=== PATIENT | female | born 1975 | race Caucasian/White ===

== ENCOUNTER 2020-08-08 08:33 | Outpatient (REF) | payer OTHER, SELFPAY | END 2020-08-08 08:34 | disposition home or self-care (01) | LOC: HO.LAB 08:33 | PROVIDERS: PCP Pediatrics; Visit Provider Internal Medicine | DX: Z20.828 Contact with and (suspected) exposure to other viral communicable diseases (principal) | CPT/HCPCS: C9803; U0003 ==

== ENCOUNTER 2021-06-15 16:47 | Emergency (ER) | payer OTHER, SELFPAY ==
[2021-06-15 17:11] VITALS: BP 138/74; PULSE 81; RESP 18; TEMP 36.7; O2SAT 100; BMI 39.1
== END 2021-06-15 21:28 | disposition left against medical advice (07) ==
PROVIDERS: Emergency Provider Internal Medicine; PCP Pediatrics
DX: R10.9 Unspecified abdominal pain (principal); K62.5 Hemorrhage of anus and rectum
CPT/HCPCS: 99282

== ENCOUNTER 2021-11-20 08:34 | Outpatient (REF) | payer OTHER, SELFPAY ==
--- NOTE | ~2021-11-20 | XR_ITS ---
EXAMINATION: BILATERAL KNEE X-RAY CLINICAL INFORMATION: Pain COMPARISON: None TECHNIQUE: Standing AP view of both knees and lateral and sunrise view of the right knee FINDINGS: Right: Bone alignment is normal. No fracture or dislocation is seen. The joint spaces are normal. There is no joint effusion. There is a small osteophyte at the quadriceps tendon insertion to the patella. Standing AP view of the left knee is unremarkable. XR/XR knee standing BI IMPRESSION: Small right patellar osteophyte at the quadriceps tendon insertion.
--- NOTE | ~2021-11-20 | XR_ITS ---
EXAMINATION: BILATERAL KNEE X-RAY CLINICAL INFORMATION: Pain COMPARISON: None TECHNIQUE: Standing AP view of both knees and lateral and sunrise view of the right knee FINDINGS: Right: Bone alignment is normal. No fracture or dislocation is seen. The joint spaces are normal. There is no joint effusion. There is a small osteophyte at the quadriceps tendon insertion to the patella. Standing AP view of the left knee is unremarkable. XR/XR knee RT 2V IMPRESSION: Small right patellar osteophyte at the quadriceps tendon insertion.
== END 2021-11-20 08:35 | disposition home or self-care (01) ==
LOC: HO.HOSX 08:34
PROVIDERS: Visit Provider Physician Assistant
DX: S83.8X1A Sprain of other specified parts of right knee, initial encounter (principal); M25.562 Pain in left knee
CPT/HCPCS: 20610; 73560; 73565; J1020

== ENCOUNTER 2021-11-30 10:45 | Outpatient (RCR) | payer OTHER, SELFPAY ==
--- NOTE | 2021-11-30 12:22 | MHC.PT.EP ---
[facility] [place] Office [place] Office [place] Office [address] Yvonne Claudio [address] [phone] F: [phone] F: [phone] F: [phone] F: [phone] Physical Therapy Plan of Care Date of Evaluation: Date of Surgery: n/a Diagnosis: sprain of R knee Assessment: Patient is a 45 year old female presenting to PT with complaints of pain in her R knee. Pt reports onset of pain began 11/05/2021 due to a twisting injury after falling down the stairs. She presents today with impairments in pain, ROM, knee strength, gait mechanics. 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 Pt expresses fpc goal of reducing pain, and is motivated to work towards this in PT. Clinical presentation today is most consistent with signs and sx associated with possible meniscal involvement and pt will benefit from skilled PT to address the following problems and impairments noted upon evaluation: pain, ROM, knee strength, gait mechanics. These problems limit the patient with the following functional activities: ADLs, ambulation, stair negotiation, driving. The prescribed treatment plan of care is medically necessary. Co-morbidities of T2DM were identified and taken into considerations of plan of care. Pt was educated on HEP, role of PT, prognosis, POC. Frequency and Duration: The patient will be seen 2 x week x 4 weeks Short Term Goals: Pt will demonstrate R knee strength at least 4/5 in 3 weeks. Pt will demonstrate <4/10 pain at rest in 3 weeks for improved QOL. Pt will demonstrate AROM equal B in 3 weeks for improved ability to ambulate. Senior Living Goals: Pt will demonstrate improved LEFI score by 9 points in 4 weeks for improved functional mobility. Pt will demonstrate ability to ambulate with normal mechanics in 4 weeks for return to PLOF. Pt will demonstrate ability to negotiate stairs with min to no pain and step over step sequencing in 4 weeks for improved access to her home. Pt will demonstrate ability to dress her self independently in 4 weeks for return to PLOF. Treatment Plan: Modalities to reduce pain, spasms and effusion. Manual therapy to restore motion and function. Therapeutic exercise to improve strength and flexibility. Neuromuscular re-education for posture and balance. Therapeutic activities to return to functional activities of daily living. Electronically signed by: Heydi Lane PT, DPT, ATC Please sign and return to therapist. Thank you for your referral.
--- NOTE | 2021-12-12 09:29 | MHC.PT.DC ---
[facility] [place] Office [place] Office [place] Office [address] [place] [phone] F: [phone] F: [phone] F: [phone] F: [phone] Physical Therapy Discharge Report Diagnosis: sprain of R knee Date of Surgery: n/a Date of Evaluation: 11/30/21 Date of Discharge: 12/12/21 Treatments to Date: 1 Cancellations to Date: 0 No Shows to Date: 2 Discharge Status: Visit Non-compliance Discharge Summary: Pt has failed to comply with [facility] attendance policy and no showed her first 2 scheduled PT appointments. Pt status unknown at this time. Electronically signed by: Heydi Lane, PT, DPT, ATC Please sign and return to therapist. Thank you for your referral.
== END 2021-12-12 09:30 | disposition home or self-care (01) ==
LOC: HO.PTCHIC 10:45
PROVIDERS: PCP Pediatrics; Visit Provider Physician Assistant
DX: S83.8X1A Sprain of other specified parts of right knee, initial encounter (principal)
CPT/HCPCS: 97110; 97161

== ENCOUNTER → 2022-12-03 11:20 | Outpatient (BNVA) | payer OTHER, SELFPAY | PROVIDERS: PCP Pediatrics; Visit Provider Physician Assistant | DX: Z13.89 Encounter for screening for other disorder (principal) ==

== ENCOUNTER 2023-03-25 10:56 | Outpatient (REF) | payer OTHER, SELFPAY ==
--- NOTE | ~2023-03-25 | MM_ITS ---
EXAMINATION: MM SCREENING DIGITAL BREAST TOMOSYNTHESIS, BILATERAL CLINICAL INFORMATION: Screening. Asymptomatic. The lifetime risk of breast cancer based on the Tyrer-Cuzick Model is 10.1%. COMPARISON: Mammography: This study is a baseline mammogram. TECHNIQUE: Digital breast tomosynthesis is performed in both the craniocaudal and mediolateral oblique views along with computer-aided detection (CAD). Synthesized 2D images are generated from the tomosynthesis. FINDINGS: There are scattered areas of fibroglandular density (ACR BI-RADS breast composition Category b). There are no significant masses, abnormal calcifications, or other abnormalities. MM/MM tomosynthesis screening BI IMPRESSION: No mammographic evidence of malignancy. ASSESSMENT: BI-RADS BI-RADS 1 - Negative RECOMMENDATION: Routine annual mammography screening. 1 year F/U This examination should not preclude the clinical evaluation of a suspicious palpable abnormality. This patient's information was entered into a reminder system with a target due date for their next mammogram.
== END 2023-03-25 10:57 | disposition home or self-care (01) ==
LOC: HO.MAMMO 10:56
PROVIDERS: PCP Pediatrics; Visit Provider Pediatrics
DX: Z12.31 Encounter for screening mammogram for malignant neoplasm of breast (principal)
CPT/HCPCS: 77063; 77067

== ENCOUNTER → 2023-03-25 11:30 | Outpatient (BNV) | payer OTHER, SELFPAY | PROVIDERS: PCP Pediatrics; Visit Provider Radiology Diagnostic Radiology | DX: Z12.31 Encounter for screening mammogram for malignant neoplasm of breast (principal) | CPT/HCPCS: 77063; 77067 ==

== ENCOUNTER → 2024-03-30 11:00 | Outpatient (BNV) | payer BC, OTHER, SELFPAY | PROVIDERS: PCP Pediatrics; Visit Provider Radiology Diagnostic Radiology | DX: Z12.31 Encounter for screening mammogram for malignant neoplasm of breast (principal) | CPT/HCPCS: 77063; 77067 ==

== ENCOUNTER 2024-03-30 11:09 | Outpatient (REF) | payer BC, OTHER, SELFPAY ==
--- NOTE | ~2024-03-30 | MM_ITS ---
EXAMINATION: MM SCREENING DIGITAL BREAST TOMOSYNTHESIS, BILATERAL CLINICAL INFORMATION: Screening. Asymptomatic. COMPARISON: Mammography: This study is compared with prior exams dating back to TECHNIQUE: Digital breast tomosynthesis is performed in both the craniocaudal and mediolateral oblique views along with computer-aided detection (CAD). Synthesized 2D images are generated from the tomosynthesis. FINDINGS: There are scattered areas of fibroglandular density (ACR BI-RADS breast composition Category b). There are no significant masses, abnormal calcifications, or other abnormalities. MM/MM tomosynthesis screening BI IMPRESSION: No mammographic evidence of malignancy. ASSESSMENT: BI-RADS BI-RADS 1 - Negative RECOMMENDATION: Routine annual mammography screening. 1 year F/U This examination should not preclude the clinical evaluation of a suspicious palpable abnormality. This patient's information was entered into a reminder system with a target due date for their next mammogram.
== END 2024-03-30 11:10 | disposition home or self-care (01) ==
LOC: HO.MAMMO 11:09
PROVIDERS: PCP Pediatrics; Visit Provider Pediatrics
DX: Z12.31 Encounter for screening mammogram for malignant neoplasm of breast (principal)
CPT/HCPCS: 77063; 77067

== ENCOUNTER 2024-11-30 09:35 | Outpatient (REF) | payer BC, OTHER, SELFPAY ==
[2024-11-30 14:25] LABS: MANUAL DIFF FLAG NO
[2024-11-30 14:26] LABS: Basophils Percent Auto 0.4 % (0-2); Eosinophils Absolute Auto 0.2 X10*3/uL (0.0-0.4); Eosinophils Percent Auto 2.4 % (0-4); Hematocrit 41.3 % (37.0-47.0); Hemoglobin 13.4 g/dl (12.0-16.0); Imm Gran Abs Auto 0.02 X10*3/uL (0.00-0.03); Imm Gran Pct Auto 0.3 % (0.0-0.4); Lymphocytes Absolute Auto 1.7 X10*3/uL (1.2-4.9); Lymphocytes Percent Auto 24.7 % (20-40); Mean Corpuscular HGB Conc 32.4 g/dl (31.0-35.0); Mean Corpuscular Hemoglobin 27.9 pg (27.0-33.0); Monocytes Absolute Auto 0.5 X10*3/uL (0.1-1.2); Monocytes Percent Auto 7.4 % (2-11); Neutrophils Absolute Auto 4.4 x10*3/uL (2.0-8.3); Neutrophils Percent Auto 64.8 % (45-73); Platelet Count 293 X10*3/uL (160-400); Red Cell Distribution Width 13.2 % (11.0-16.0); White Blood Count 6.8 X10*3/uL (4.8-10.8)
[2024-11-30 14:58] LABS: Creatinine Urine 78.76 mg/dL; Microalbum/Creatinine Ratio Ur 13.9 ug/mg cr (<30)
[2024-11-30 15:06] LABS: Alanine Aminotransferase 25 U/L (0-31); Albumin Level 4.2 g/dL (3.5-5.0); Alkaline Phosphatase 147 U/L (39-117); Aspartate Amino Transferase 16 U/L (5-31); Bilirubin Direct 0.1 mg/dL (0.0-0.5); Bilirubin Total 0.4 mg/dL (0.0-1.0); Cholesterol 174 mg/dL (<200); HDL Cholesterol 54 mg/dL (>40); LDL Cholesterol Calculated 94 mg/dL (<100); Total Protein 7.7 g/dL (6.5-8.0); Triglycerides 131 mg/dL (<150)
[2024-11-30 15:46] LABS: TSH reflex Free T4 1.29 uIU/mL (0.32-4.0)
== END 2024-11-30 09:36 | disposition home or self-care (01) ==
LOC: HO.CHCLDS 09:35
PROVIDERS: Visit Provider Pediatrics
DX: E03.9 Hypothyroidism, unspecified (principal); E11.9 Type 2 diabetes mellitus without complications; E66.9 Obesity, unspecified
CPT/HCPCS: 36415; 80061; 80076; 82043; 82570; 84443; 85025

== ENCOUNTER 2024-12-22 09:01 | Outpatient (AMB) | payer BC, OTHER, SELFPAY ==
--- NOTE | 2024-12-22 09:05 | MHC.OFFVIS ---
Intake Visit Reasons: [employer]/HHC referral for VV w/ pain Intake Note: New patient presents for varicose veins. Bilateral leg pain. Left leg worse. Swelling and cramping as well. Patient states she has dealed with this pain for around three years. Accompanied by: Self / Same As Patient Allergies No Known Allergies Allergy (Verified 12/22/24 09:07) HPI HPI [employer]/HHC referral for VV w/ pain: Details: Monie, a pleasant 48-year-old female patient, is presenting today on a referral from her PCP for bilateral lower extremity varicose veins with pain. Complaints include pain over varicosities, swelling of lower extremities, cramping, fatigue, and heaviness of the lower extremities. It has been affecting their daily activities including working and standing. It is noted more so in the left leg; however, it does affect both legs. She is a former smoker, quit many years ago. She is a diabetic her last A1c was 7.5% in November. She states there is a family history of varicose veins, both her mother and father have them. Patient denies any previous venous surgery or injections. Patient denies any history of DVT/ PE. Patient denies any history of phlebitis. Trial of compression includes - elevation and hot water with some relief They now present for vascular evaluation regarding their varicose veins. [facility] Medical History Hypothyroid Diabetes type 2, controlled Surgical History Tubal ligation status Social History Household Members: Spouse Alcohol intake: never Patient Tobacco Use Status: Never used Tobacco Review of Systems Const Reports as per HPI and Denies weakness ENT Reports Normal hearing present and Denies dizziness Card Reports as per HPI, Denies chest pain, Denies chest pain at rest, Denies chest pain with activity, Denies dyspnea and Denies dyspnea on exertion Resp Reports as per HPI, Denies cough, Denies dyspnea and Denies dyspnea on exertion GI Reports as per HPI, Denies abdominal pain, Denies nausea and Denies vomiting Musc Denies numbness Skin/Breast Reports as per HPI, Denies erythema and Denies wounds Neuro Reports Normal hearing present, Denies dizziness, Denies numbness, Denies Sensory deficit (Neuro) and Denies weakness Psych Reports no additional complaints Endo Reports no additional complaints Physical Exam Const General: healthy appearing and no acute distress Orientation/consciousness: patient oriented x3 HEENT Head: Yes normal to inspection Ears: hearing grossly normal bilaterally Mouth: Normal oral and palatal mucosa present Resp Effort & Inspection: normal respiratory effort and able to speak in complete sentences Auscultation: clear to auscultation bilaterally Cardio Jugular venous distension: no JVD Rate: regular rate Rhythm: regular rhythm Heart sounds: S1 normal heart sound present and S2 normal heart sound present Bruits: no abdominal aortic bruits, no carotid bruits, no femoral bruits and no renal bruits Peripheral pulses: Peripheral pulses 2+ throughout GI Inspection: Yes normal to inspection Palpation (GI): No Abdominal aortic bruit present Skin General skin exam: no rashes or lesions noted Wounds: no wounds Hair: normal Neuro General: patient oriented x3 Cranial nerves: Yes Normal hearing present Cognition (Neuro): normal cognition Gait exam (Neuro): Normal gait present Motor exam (neuro): 5/5 motor strength present throughout Sensory Exam: No Sensory deficit (Neuro) Extrem Other: Bilateral lower extremities: Multiple spider veins noted throughout the lower extremities. Small rope-like varicosities noted over the tibial plateaus, approximately 2 cm in length. +1 peripheral edema noted CEAP: C - 3 E - primary A - superficial P - reflux General: Yes normal to inspection, Yes full ROM, Yes capillary refill normal and Yes normal gait Assessment & Plan Assessment & Plan (1) Varicose veins of both lower extremities with inflammation: Code(s): I83.11 - Varicose veins of right lower extremity with inflammation; I83.12 - Varicose veins of left lower extremity with inflammation Category: Medical Plan: Monie is presenting today on a referral from her PCP for bilateral lower extremity varicose veins with pain and swelling. In short, the patient has evidence of venous insufficiency. I have discussed the pathophysiology with the patient. In addition I have provided informational material regarding venous disease to the patient. We have discussed conservative measures including compression, elevation, and exercise. We are able to provide her with compression stockings; I discussed the importance of wearing them, particularly at work when she is working for more than 8 hours on her feet. I have taken the liberty of ordering venous insufficiency testing with the patient. They will follow up with me after testing. The patient had an opportunity to ask questions regarding the treatment plan. All questions were answered. Imaging studies, laboratory studies and physical exam results were discussed and reviewed in detail. No major barriers to understanding were identified. The patient expressed understanding and agreement with the above treatment plan. The patient is aware they should contact our office by phone for worsening of the current condition or the appearance of new symptoms. Thank you for allowing me to participate in the vascular care of this patient. If you have any questions or concerns regarding the treatment for the above condition please do not hesitate to contact me. The office telephone contact is [phone]. This note is constructed using voice recognition software. While every effort has been made to ensure accuracy, podiatric foot and ankle specialist errors may have been included. Thank you for allowing me to participate in the care of your patient. Yours sincerely, MACI Hendricks Orders: Orders US venous duplex LE BI 1 Week I83.11 - Varicose veins of right lower extremity with inflammation, I83.12 - Varicose veins of left lower extremity with inflammation Coding Level of Care Code New Pt Level 4 (93864) Diagnoses Varicose veins of both lower extremities with inflammation I83.11; I83.12
--- OUTSIDE RECORDS SUMMARY | 2024-12-22 09:51 | XMS_ITS | Encounter Summary ---
Author Organization [employer] Address [address] [facility] 7t [place] [address] Care Team Providers Care Computer Aide Name Role Phone Lisa Galvan MD Primary Care Provider [phone] Reason for Visit * Reason Onset Date Comments Med Refill 10/08/2023 Encounter Details Date Type Department Care Team ([facility] st Contact Info) Description 10/08/2023 Telephone [facility] MEDICINE [address] [place] [address] Lisa Galvan MD [address] [place] [id number] Med Refill Social History Tobacco Use Types Packs/Day Years Used Date Smoking Tobacco: Never Assessed Housing Stability Answer Date Recorded What is your housing situation today? I have edilia casillas 07/17/[address] you li ve. Do you have problems with any of the following? None of the above 07/17/2023 Food Insecurity Answer Date Recorded Within the past 12 months, y ou worried that your food would run out before you got money to buy more: Never True 07/17/2023 Within the past 12 months,th e food you bought just didn't last and you didn't have enough money to get more: Never True 09/2022 Transportation Answer Date Recorded In the past 12 months, has l ack of transportation kept you from medical appts, meetings, work or from getting things needed for daily living? No 07/17/2023 Utilities Answer Date Recorded In the past 12 months, has t he electric, gas, oil or water company threatened to shut off services in your home? No 07/17/2023 Comments Unknown Sex and Gender Information Value Date Recorded Sex Assigned at Female 07/16/2022 10:18 AM EDT Legal Sex Female 10:18 AM EDT Gender Identity Female 07/16/2022 10:18 AM EDT Sexual Orientation Choose not to disclose 2021 10:18 AM EDT documented as of this encounter Miscellaneous Notes * Telephone Encounter - Kelsie Singleton - 10/08/2023 2:44 PM EST TC from pt requesting medication refill. Medications needing refill : Beclomethasone Diprop HFA (Qvar RediHaler) 80 MCG/ACT inhaler albuterol (2.5 MG/3ML) 0.083% nebulizer solution To be sent to: [facility]/pharmacy #[id number] - [place], [place] - [address] [facility] [place] [address] documented in this encounter Plan of Treatment Upcoming Encounters Date Type Department Care Team (Late st Contact Info) Description 01/07/2025 2:15 PM EDT Office Visit [facility] CHC MED & PEDS [address] [place] [address] Lisa Galvan MD [address] [place] [address] documented as of this encounter Visit Diagnoses Not on filedocumented in this encounter Care Teams Computer Aide Relationship Specialty Start Date End Date Lisa Galvan MD [address] [place] [address] PCP - General Family Medicine 08/01/12 documented as of this encounter
--- OUTSIDE RECORDS SUMMARY | 2024-12-22 09:51 | XMS_ITS | Encounter Summary ---
Author Organization [employer] Address [address] [facility] 7[address] [place] [address] Care Team Providers Care Manager Progressive Care Name Role Phone Lisa Galvan MD Primary Care Provider [phone] Reason for Visit * Reason Comments Med Change Request Encounter Details Date Type Department Care Team ([facility] Contact Info) Description 07/19/2023 Refill [facility] CHC MED & PEDS [address] [place], [place] [phone] Lisa Galvan MD [address] [place] [address] Social History Tobacco Use Types Packs/Day Years [...] AM EDT documented as of this encounter Plan of Treatment Upcoming Encounters Date Type Department Care Team ([facility] st Contact Info) Description 01/07/2025 2:15 PM EDT Office Visit [facility] MED & PEDS [address] [place] [address] Lisa Galvan MD [address] [place] [address] documented as of this encounter Visit Diagnoses Not on filedocumented in this encounter Care Teams Manager Progressive Care Relationship Specialty Start Date End Date Lisa Galvan MD [address] [place] [address] PCP - General Family Medicine 08/01/12 documented as of this encounter
--- OUTSIDE RECORDS SUMMARY | 2024-12-22 09:52 | XMS_ITS | Encounter Summary ---
Author Organization [facility] Address [address] [place] [address] 7t [place] [address] Care Team Providers Care Shirt Sorter Name Role Phone Lisa Galvan MD Primary Care Provider [phone] Reason for Visit * Reason Comments Med Change Request Encounter Details Date Type Department Care Team ([facility] Contact Info) Description 03/05/2023 Refill [facility] CHC MED & PEDS [address] [place], [place] [phone] Lisa Galvan MD [address] [place] [address] Moderate persistent asthma with exacerbation Social History Tobacco Use Types Packs/Day Years Used Date Smoking Tobacco: Never Assessed Comments Unknown Sex and Gender Information Value Date Recorded Sex Assigned at Female 07/16/2022 10:18 AM EDT Legal Sex Female 10:18 AM EDT Gender Identity Female 07/16/2022 10:18 AM EDT Sexual Orientation Choose not to disclose 2021 10:18 AM EDT COVID-19 Exposure Response Date Recorded In the last 10 days, have yo u been in contact with someone who was confirmed or suspected to have Coronavirus/COVID-19? No / Unsure 02/27/2023 11:13 AM EDT documented as of this encounter Plan of Treatment Upcoming Encounters Date Type Department Care Team ([facility] Contact Info) Description 01/07/2025 2:15 PM EDT Office Visit [facility] CHC MED & PEDS [address] [place], [place] [phone] Lisa Galvan MD [address] [place], [place] [phone] documented as of this encounter Visit Diagnoses Diagnosis Moderate persistent asthma with exacerbation Unspecified asthma, with exacerbation documented in this encounter Care Teams Shirt Sorter Relationship Specialty Start Date End Date Lisa Galvan MD [address] [facility] [place] [address] PCP - General Family Medicine 08/01/12 documented as of this encounter
--- OUTSIDE RECORDS SUMMARY | 2024-12-22 09:52 | XMS_ITS | Encounter Summary ---
Author Organization [employer] Address [address] [facility] [address]t [place] [address] Care Team Providers Care Technical Training Coordinator Name Role Phone Lisa Galvan MD Primary Care Provider [phone] Encounter Details Date Type Department Care Team ([facility] st Contact Info) Description 03/06/2023 Telephone [facility] CHC MED & PEDS [address] [place], [place] [phone] Lisa Galvan MD [address] [place] [address] Social History Tobacco Use Types Packs/Day Years [...] encounter Miscellaneous Notes * Telephone Encounter - Ely Romero RN - 03/08/2023 1:17 PM EDT Call to pt regarding below. Requesting continuous glucose monitoring sensor. States she is currently using the freestyle glucometer but is not able to check her glucose as directed while she is at work. Per pt, works long hours. RN advised will forward to PCP to review request. Pt agrees. Last seen 02/27/23 and has f/u scheduled 03/29/23. Please advise. Thank you. * Telephone Encounter - Nely Pantoja - 03/06/2023 12:16 PM EDT Tc from pt requesting a glucose meter and sensors for her arm . Please mohit pt to clarify . documented in this encounter Plan of Treatment Upcoming Encounters Date Type Department Care Team (Late st Contact Info) Description 01/07/2025 2:15 PM EDT Office Visit [facility] MED & PEDS [address] [place] [address] Lisa Galvan MD [address] [place] [address] documented as of this encounter Visit Diagnoses Not on filedocumented in this encounter Care Teams Technical Training Coordinator Relationship Specialty Start Date End Date Lisa Galvan MD [address] [place] [address] PCP - General Family Medicine 08/01/12 documented as of this encounter
--- OUTSIDE RECORDS SUMMARY | 2024-12-22 09:52 | XMS_ITS | Clinical Summary ---
Author Organization [facility] Address [address] [facility] 7[address] [place] [address] Care Team Providers Care Bariatric Program Coordinator Name Role Phone Lisa Galvan MD Primary Care Provider [phone] Allergies No known active allergies Medications Nebulizers misc Take by mouth. Use with inhalation medication as directed Active cholecalciferol (Vitamin D-3) 50 MCG (1999) tablet Take 1 tablet by mouth every 12 (twelve) hours. Active Diclofenac Sodium (Voltaren) 1 % gel Apply topically every 8 (eight) hours. 022 Active glucose blood (FREESTYLE LITE) test strip every 8 (eight) hours. 021 Active Blood Glucose Monitoring Suppl (FreeStyle glucose monitoring) kit 1 each in the morning, at noon, and at bedtime. Check blood sugar three times daily as directed Active Blood Glucose Monitoring Suppl (FreeStyle Lite) w/Device kit Use to check blood sugar 3 times daily and as needed Active Blood Glucose Monitoring Suppl (FreeStyle glucose monitoring) kit 1 each if needed. Active glucose blood test strip 1 each. Use three times daily and prn Active FreeStyle lancets 1 each. Use three times daily to check blood sugar and prn Active Insulin Pen Needle (pen needle 01/29 ) 31G X 8 mm misc Inject 1 each under the skin. Use to check blood sugar three times daily and prn Active Beclomethasone Diprop HFA (Qvar RediHaler) 80 MCG/ACT inhalerIndicati ons:Moderate persistent asthma with exacerbation Inhale 1 Inhalation in the morning and at bedtime. 10.6 g 2 022 Active Albuterol Sulfate 108 (90 Base) MCG/ACT aerosol powderIndicatio ns:Moderate persistent asthma with exacerbation INHALE 1 PUFF every 6 hours prn wheezing 8.5 each 3 023 Active Additional Information Patient not taking.Reported on 02/14/2024 albuterol 108 (90 Base) MCG/ACT inhaler Inhale 2 puffs every 6 (six) hours if needed for wheezing. 18 g 2 023 Active Continuous Blood Gluc Layout Artist (FreeStyle Giacomo reader) device Inject under the skin continuously. 1 each 023 Active Continuous Blood Gluc Sensor (FreeStyle Giacomo 2 Sensor) misc USE DIRECTED 1 each 023 Active albuterol (2.5 MG/3ML) 0.083% nebulizer solution Take 3 mL by nebulization every 4 (four) hours. 75 mL 024 Active levothyroxine (Synthroid, Levoxyl) 100 MCG tablet TAKE 1 TABLET BY MOUTH EVERY DAY 90 tablet 025 Active semaglutide (Ozempic, 1 MG/DOSE,) 4 MG/3ML solution pen-injectorInd ications:Diabet es mellitus without complication (CMS/HCC),Obesi ty with body mass index 30 or greater Inject 1 mg under the skin 1 (one) time per week. 1 each 5 025 Active ibuprofen 800 MG tablet Take 1 tablet (800 mg) by mouth 3 times daily. 90 tablet 1 025 Active dicyclomine (Bentyl) 20 MG tabletIndicatio ns:Irritable bowel syndrome with diarrhea TAKE 1 TABLET BY MOUTH THREE TIMES A DAY 270 tablet 1 025 Active insulin aspart (NovoLOG FLEXPEN) 100 UNIT/ML pen inject 10 units by subcutaneous route pre meal tid 021 2024 Discontinued(T herapy completed) insulin glargine (Lantus SoloStar) 100 UNIT/ML pen inject 40 Unit by subcutaneous route once at 6 pm 021 2024 Discontinued(I neffective) pantoprazole (ProtoNix) 20 MG EC tablet Take 20 mg by mouth in the morning. 023 2024 Discontinued(S terry effects) Semaglutide,0.2 5 or 0.5MG/DOS, (Ozempic, 0.25 or 0.5 MG/DOSE,) 2 MG/3ML solution pen-injector INJECT 0.25 MG SUBCUTANEOUSLY WEEKLY 3 mL 11 023 2024 Discontinued(I neffective) ibuprofen 800 MG tablet TAKE ONE TABLET THREE TIMES DAILY WITH FOOD NEEDED 90 tablet 024 2024 Discontinued(R eorder (will not trigger notification to Pharmacy)) dicyclomine (Bentyl) 20 MG tabletIndicatio ns:Irritable bowel syndrome with diarrhea TAKE 1 TABLET BY MOUTH THREE TIMES A DAY 270 tablet 1 024 2024 Discontinued Active Problems Problem Noted Date Diagnosed Date Dysuria 02/04/2023 Assessment & Plan (02/04/2023 2:43 PM EDT): Will send urine for culture and start on Macrobid. Epigastric pain 02/04/2023 Assessment & Plan (02/04/2023 2:43 PM EDT): Will start on pantoprazole for symptoms relief. Type 2 diabetes mellitus 08/22/2022 Diabetes mellitus without complication 1 Type 2 diabetes mellitus, uncontrolled 9 Exacerbation of asthma 03/29/2016 Obesity with body mass index 30 or greater 03/29 Hypothyroidism 09/01/2012 Gastritis 08/04/2012 Overweight 08/04/2012 Varicose veins of lower extremity 02/12/2012 Resolved Problems Problem Noted Date Diagnosed Date Resolved Date Galactorrhea not associated with childbirth 08/10/2013 08/22/2022 Anxiety 08/04/2012 08/22/2022 Encounters Date Type Department Care Team Description 12/09/2024 Refill [facility] [address] [place] [address] Lisa Galvan MD Irritable bowel syndrome with diarrhea 11/30/2024 9:00 AM EDT Office Visit [facility] [address] [facility] [address] Lisa Galvan MD Acquired hypothyroidism (Primary Dx); Diabetes mellitus without complication (CMS/HCC); Obesity with body mass index 30 or greater; Colon cancer screening; Family history of colon cancer in father; Symptomatic varicose veins of both lower extremities; Dietary counseling; Exercise counseling 11/30/2024 Refill [facility] [address] [place] [address] Lucy Grimm, DDS 11/30/2024 Travel 11/27/2024 Telephone [facility] [address] [place], [place] [phone] Lisa Galvan MD Chart Prep 11/26/2024 Telephone [facility] [address] [place] [address] Lisa Galvan MD Nurse Triage 11/04/2024 Refill [facility] [address] [place], [place] [phone] Lisa Galvan MD from Last 3 Months Immunizations Name Administration Dates Next Due Hep B, adult 10/31/2012,09/01/2012 Influenza Injectable Quadriv alant Preservative Free IIV4 MDCK 10/19/2018 Influenza injectable quadriv alent IIV4 with preservative 06/08/2015 Influenza injectable quadriv alent preservative free 11/07/2021,06/03/2020,08/21/2019 Influenza, IIV3, injectable 09/27/2017, 4 Influenza, Injectable, MDCK, preservative free 10/14/2024 Influenza, Split (incl. tuyet fied surface antigen) 08/10/2013,08/04/2012 Influenza, seasonal, injecta ble, preservative free 08/22/2022 Pneumococcal Conjugate PCV 13 06/03/2020 Pneumococcal Polysaccharide PPSV23 09/27/2017 Tdap 06/03/2020,11/12/2018 Social History Tobacco Use Types Packs/Day Years Used Date Smoking Tobacco: Never Assessed Depression Answer Date Recorded Patient Health Questionnaire-9 Score 4 11/30/2024 Patient Health Questionnaire-9 Score 4 11/30/2024 Last PHQ-9: Questionnaire Data Not on file 0 11/30/2024 Housing Stability Answer Date Recorded What is your housing situation today? I have edilia sing 11/30/[address] you li ve. Do you have problems with any of the following? None of the above 11/30/2024 Food Insecurity Answer Date Recorded Within the past 12 months, y ou worried that your food would run out before you got money to buy more: Never True 11/30/2024 Within the past 12 months,th e food you bought just didn't last and you didn't have enough money to get more: Never True Transportation Answer Date Recorded In the past 12 months, has l ack of transportation kept you from medical appts, meetings, work or from getting things needed for daily living? No 11/30/2024 Utilities Answer Date Recorded In the past 12 months, has t he electric, gas, oil or water company threatened to shut off services in your home? No 11/30/2024 Depression Answer Date Recorded Patient Health Questionnaire-2 Score 0 11/30/2024 Internet Access Answer Date Recorded Internet Access Q1 Yes 11/30/2024 Internet Access Q2 Not on file 11/30/2024 Comments Unknown Sex and Gender Information Value Date Recorded Sex Assigned at Female 07/16/2022 10:18 AM EDT Legal Sex Female 10:18 AM EDT Gender Identity Female 07/16/2022 10:18 AM EDT Sexual Orientation Choose not to disclose 2021 10:18 AM EDT Last Filed Vital Signs Vital Sign Reading Time Taken Comments Blood Pressure 140/85 11/30/2024 10:18 AM EDT Pulse 81 11/30/2024 9:02 AM EDT Temperature 36.7 ??C (98.1 ??F) 11/30/2024 9:02 AM ED T Respiratory Rate 16 11/30/2024 9:02 AM EDT Oxygen Saturation 99% 11/30/2024 9:02 AM EDT Inhaled Oxygen Concentration - - Weight 124 kg (273 lb) 11/30/2024 9:02 AM EDT Height 171 cm (5' 7.32 ) 11/30/2024 9:02 AM EDT Body Mass Index 42.35 11/30/2024 9:02 AM EDT Plan of Treatment Upcoming Encounters Date Type Department Care Team (Late st Contact Info) Description 01/07/2025 2:15 PM EDT Office Visit [facility] [address] [place] [address] Lisa Galvan MD [address] [place] [address] Health Maintenance Due Date Last Done Comments CT Colonography 1975 Colonoscopy 1976 Colorectal Cancer Screening 1975 FIT DNA/Cologuard 1975 FIT 1975 FOBT 1975 HIV Screening 1975 Sigmoidoscopy 1975 Eye Exam 1986 Tobacco Screening 1988 Family Planning (PISQ) 12/28/1991 Hepatitis C Screening 1994 HPV/Cotest 2006 Hepatitis B Vaccines (3 of 3 - 19+ 3-dose series) 03/02/2013 10/31/2012, 09/01/2012 Dental Oral Exam 01/06/2015 07/07/2014, 09/22/2008 Dental Prophylaxis 01/07/2015 07/08/2014, 05/31/2010 Dental X-Ray: Bitewings 07/08/2015 07/07/2014, 08/03 Cervical Cancer Screening 11/12/2021 Pap Smear 11/12/2021 11/12/2018 COVID-19 Vaccine ( season) 2024 Diabetes: Hemoglobin A1C 03/02/2025 025, 02/27/2023, 07/23/2022, Additional history exists Alcohol/Substance Use Screening 11/30/2025 11/30/2024 Depression Screening 11/30/2025 11/30/2024, 12/01/19 Diabetes: Foot Exam 11/30/2025 11/30/2024, 11/30/2024, 11/30/2024, Additional history exists Diabetes: Urine Protein Screening 11/30/2025 11/30/2024, 10/14/2020, 04/01/2020 Lipid Panel 11/30/2025 11/30/2024, 06/12/2022, 08/22/2022, Additional history exists SDOH Screening 11/30/2025 11/30/2024 Mammogram 03/30/2026 03/30/2024, 03/25/2023 Pneumococcal Vaccine: Pediatrics (0 to 5 Years) and At-Risk Patients (6 to 49) Years) (3 of 3 - PCV20 or PCV21) 2026 06/03/2020, 09/27/2017 Zoster Vaccines (1 of 2) 2026 Dental X-Ray: Full Mouth 02/14/2027 02/14/2024, 07/17 DTaP/Tdap/Td Vaccines (3 - Td or Tdap) 06/03/2030 06/03/2020, 11/12/2018 RSV Patients and Patients Aged 60 years or older (1 - 1-dose 75+ series) 12/28/2051 Influenza Vaccine Completed 10/14/2024, , 11/07/2021, Additional history exists HIB Vaccines Aged Out No longer eligi ble based on patient's age to complete this topic HPV Vaccines Aged Out No longer eligi ble based on patient's age to complete this topic Hepatitis A Vaccines Aged Out No long er eligible based on patient's age to complete this topic IPV Vaccines Aged Out No longer eligi ble based on patient's age to complete this topic Meningococcal Vaccine Aged Out No amina holly eligible based on patient's age to complete this topic RSV under 20 months Aged Out No longe r eligible based on patient's age to complete this topic Rotavirus Vaccines Aged Out No longer eligible based on patient's age to complete this topic Procedures Procedure Name Priority Date/Time Associated Diagnosis Comments ALBUMIN, RANDOM URINE W/CREATININE Routine 11/30/2024 9:40 AM EDT Diabetes mellitus without complication (CMS/HCC) Acquired hypothyroidism Obesity with body mass index 30 or greater HEPATIC FUNCTION PANEL Routine 11/30/2024 9:37 AM EDT Diabetes mellitus without complication (CMS/HCC) Acquired hypothyroidism Obesity with body mass index 30 or greater TSH W/REFLEX TO FT4 Routine 11/30/2024 9 :37 AM EDT Diabetes mellitus without complication (CMS/HCC) Acquired hypothyroidism Obesity with body mass index 30 or greater LIPID PANEL, STANDARD Routine 11/30/2024 9:37 AM EDT Diabetes mellitus without complication (CMS/HCC) Acquired hypothyroidism Obesity with body mass index 30 or greater CBC WITH AUTO DIFFERENTIAL Routine 11/30/2024 9:37 AM EDT Diabetes mellitus without complication (CMS/HCC) Acquired hypothyroidism Obesity with body mass index 30 or greater POCT GLYCATED HEMOGLOBIN, TOTAL Routine 11/30/2024 9:05 AM EDT Diabetes mellitus without complication (CMS/HCC) POCT GLUCOSE Routine 11/30/2024 9:04 AM EDT Diabetes mellitus without complication (CMS/HCC) BI MAMMOGRAM SCREENING TOMOSYNTHESIS BILATERAL Routine 03/30/2024 11:30 AM EDT PANORAMIC RADIOGRAPHIC IMAGE Routine 02/14/2024 1:00 PM EDT Periodontal disease HM PAP/HPV Routine 11/12/2018 PROPHYLAXIS - ADULT Routine 07/08/2014 1 2:00 AM EDT BITEWINGS - 4 RADIOGRAPHIC IMAGES Routine 07/07/2014 12:00 AM EDT PERIODIC ORAL EVALUATION - ESTABLISHED PATIENT Routine 07/07/2014 12:00 AM EDT from Last 3 Months or Most Recently Relevant to Health Maintenance Results * Albumin, Random Urine W/Creatinine (11/30/2024 9:40 AM EDT) Creatinine, Urine 78.76 mg/dL [facility] Microalbumin Urine 11.0 mg/L [facility] Microalbum Creatinine Ratio Ur 13.9 <30 ug/mg cr [facility] Comment:Albumin/Creatinine R atio Reference Ranges: Normal: < 30 ug/mg creatinine Microalbuminuria: 30 - 300 ug/mg creatinineClinical Albuminuria: > 300 ug/mg creatinine Urine (Urine, Random) 11/30/2024 9:40 AM EDT 11/30/2024 2:18 PM EDT us Lisa Galvan MD LAB URINE ORDERABLES Final Re sult [facility] [address] [place] [address] [phone] * TSH W/Reflex to FT4 (11/30/2024 9:37 AM EDT) Pathologist [facility] TSH reflex Free T4 1.29 0.32 - 4.0 uIU/mL [facility] Blood Venous blood specimen / Unknown 11/30/2024 9:37 AM EDT 11/30/2024 2:19 PM EDT us Lisa Galvan MD LAB BLOOD ORDERABLES Final Re sult [facility] [address] [place] [phone] * CBC auto differential (11/30/2024 9:37 AM EDT) Pathologist [facility] White Blood Count 6.8 4.8 - 10.8 X10*3/uL [facility] Red Blood Count 4.80 4.20 - 5.50 X10*6/uL [facility] Hemoglobin 13.4 12.0 - 16.0 g/dl [facility] Hematocrit 41.3 37.0 - 47.0 % [facility] Mean Corpuscular Volume 86.0 80.0 - 98.0 fL [facility] Mean Corpuscular Hemoglobin 27.9 27.0 - 33.0 pg [facility] Mean Corpuscular HGB Conc 32.4 31.0 - 35.0 g/dl [facility] Red Cell Distribution Width 13.2 11.0 - 16.0 % [facility] Platelet Count 293 160 - 400 X10*3/uL [facility] Mean Platelet Volume 12.0 9.4 - 12.3 fL [facility] Neutrophils Percent Auto 64.8 45 - 73 % [facility] Imm Gran Pct Auto 0.3 0.0 - 0.4 % [facility] Lymphocytes Percent Auto 24.7 20 - 40 % [facility] Monocytes Percent Auto 7.4 2 - 11 % [facility] Eosinophils Percent Auto 2.4 0 - 4 % [facility] Basophils Percent Auto 0.4 0 - 2 % [facility] NRBC Pct Auto 0.0 0.0 - 0.2 /100WBC [facility] Neutrophils Absolute Auto 4.4 2.0 - 8.3 x10*3/uL [facility] Imm Gran Abs Auto 0.02 0.00 - 0.03 X10*3/uL [facility] Lymphocytes Absolute Auto 1.7 1.2 - 4.9 X10*3/uL [facility] Monocytes Absolute Auto 0.5 0.1 - 1.2 X10*3/uL [facility] Eosinophils Absolute Auto 0.2 0.0 - 0.4 X10*3/uL [facility] Basophils Absolute Auto 0.0 0.0 - 0.2 X10*3/uL [facility] NRBC Abs Auto 0.000 0.0 - 0.012 X10*3/uL [facility] Blood Venous blood specimen / Unknown 11/30/2024 9:37 AM EDT 11/30/2024 2:19 PM EDT us Lisa Galvan MD LAB BLOOD ORDERABLES Final Re sult [facility] [address] [place] [phone] * (ABNORMAL) Hepatic Function Panel (11/30/2024 9:37 AM EDT) Bilirubin, Total 0.4 0.0 - 1.0 mg/dL [facility] Bilirubin, Direct 0.1 0.0 - 0.5 mg/dL [facility] Aspartate Amino Transferase 16 5 - 31 U/L [facility] Alanine Aminotransferase 25 0 - 31 U/L [facility] Total Protein 7.7 6.5 - 8.0 g/dL [facility] Albumin Level 4.2 3.5 - 5.0 g/dL [facility] Alkaline Phosphatase 147(H) 39 - 117 U/L [facility] Blood Venous blood specimen / Unknown 11/30/2024 9:37 AM EDT 11/30/2024 2:19 PM EDT Lisa Galvan MD LAB BLOOD ORDERABLES Final Re sult Performing Organization Address [facility] Co de Phone Number [facility] [address] [place] [phone] * Lipid Panel, Standard (11/30/2024 9:37 AM EDT) Triglycerides 131 <150 mg/dL [facility] Comment:Desirable Triglyceri de: less than 150 mg/dLBorderline High Triglyceride 150-199 mg/dLHigh Triglyceride: 200-499 mg/dLVery High Triglyceride: greater than or equal to 5OO mg/dL Cholesterol 174 <200 mg/dL [facility] Comment:Desirable Cholestero l: less than 200 mg/dLBorderline High Cholesterol: 200-239 mg/dLHigh Cholesterol: greater than 239 mg/dL LDL Cholesterol Calculated 94 <100 mg/dL [facility] Comment:Desirable LDL: less than 100 mg/dLNear Optimal/Above Optimal LDL: 110- 129 mg/dLBorderline High LDL: 130-159 mg/dLHigh LDL: 160-189 mg/dLVery High LDL: greater than or equal to 190 mg/dL HDL Cholesterol 54 >40 mg/dL [facility] Comment:Desirable HDL: great er than 40 mg/dL Note: This HDL assay may give artificially low results in patients with liver disease. Blood Venous blood specimen / Unknown 11/30/2024 9:37 AM EDT 11/30/2024 2:19 PM EDT Lisa Galvan MD LAB BLOOD ORDERABLES Final Re sult Performing Organization Address [facility]/ZIP Co de Phone Number [facility] [address] [place] [phone] * (ABNORMAL) POCT A1C (11/30/2024 9:05 AM EDT) Hemoglobin A1C 7.9(A) 4.0 - 6.0 % QC Media Lot # Comment:[id number] Lot# Expiration Date Comment:07/20/2026 Blood 11/30/2024 9:05 AM EDT Lisa Galvan MD POINT OF CARE TEST ENTER/EDIT ORDERABLES Final Result * (ABNORMAL) POCT glucose manually resulted (11/30/2024 9:04 AM EDT) Glucose Blood, POC 388(A) 60 - 200 mg/dL QC Media Lot # Comment:[id number] Lot# Expiration Date Comment:03/18/2025 Blood Capillary blood specimen / Unknown 11/30/2024 9:04 AM EDT Lisa Galvan MD POINT OF CARE TEST ENTER/EDIT ORDERABLES Final Result * BI Mammogram Screening Tomosynthesis Bilateral (03/30/2024 11:30 AM EDT) Anatomical Region Laterality Modality Breast Bilateral Mammography 03/30/2024 11:3 0 AM EDT Narrative 04/22/2024 8:13 AM EDT ? [facility] [place] ? [address] ?[place] [id number] ? Mammography Report ? Signed ? Patient: Hernandez,Nixsaly ?MR#: [id number] ?? [id number] ? : 1975 ?Acct:[id number] ? Age/Sex: 48 / F ?ADM Date: 07/15/24 ? Loc: HO.MAMMO ? Attending Laura Galvan MD ? Ordering Physician: Lisa Galvan MD ?Results: 1Ne ?? gative ? Date of Service: 03/30/24 ?Follow Up: 1 Year From Orig ?? inal Mammogram ? Procedure(s): MM tomosynthesis screening BI ?? Accession Number(s): [id number] ? cc: Lisa Galvan MD ? EXAMINATION: ?? MM SCREENING DIGITAL BREAST TOMOSYNTHESIS, BILATERAL ? CLINICAL INFORMATION: ? Screening. Asymptomatic. ? COMPARISON: ?? Mammography: This study is compared with prior exams dating back to ? TECHNIQUE: ?? Digital breast tomosynthesis is performed in both the craniocaudal and ?? mediolateral oblique views along with computer-aided detection (CAD). ?? Synthesized 2D images are generated from the tomosynthesis. ? FINDINGS: ?? There are scattered areas of fibroglandular density (ACR BI-RADS breast ?? composition Category b). ? There are no significant masses, abnormal calcifications, or other ?? abnormalities. ? MM/MM tomosynthesis screening BI ?? IMPRESSION: ?? No mammographic evidence of malignancy. ? ASSESSMENT: ? BI-RADS BI-RADS 1 - Negative ? RECOMMENDATION: ?? Routine annual mammography screening. ? 1 year F/U ? This examination should not preclude the clinical evaluation of a ?? suspicious palpable abnormality. ? This patient's information was entered into a reminder system with a ?? target due date for their next mammogram. ? Dictated By: ?Jagruti Gracia MD ? Signed By: ?<Electronically signed by Jagruti Gracia MD in OV> ? 04/22/24 0809 ? DD/ 1130 ? TD/TT: ? Returned Materials Inspector: ? Procedure Note Donotuseinterpreter, Image - 04/22/2024 [facility] [address] [place] [address] Mammography Report Signed Patient: Reji Hernandez#: [id number] : 1975Acct:[id number] Age/Sex: 48 / FADM Date: 03/30/24 Loc: HO.MAMMO Attending Dr: Lisa Galvan MD Ordering Physician: Lisa Galvan MDResults: 1Ne gative Date of Service: 03/30/24Follow Up: 1 Year From Orig inal Mammogram Procedure(s): MM tomosynthesis screening BI Accession Number(s): [id number] cc: Lisa Galvan MD EXAMINATION: MM SCREENING DIGITAL BREAST TOMOSYNTHESIS, BILATERAL CLINICAL INFORMATION: Screening. Asymptomatic. COMPARISON: Mammography: This study is compared with prior exams dating back to TECHNIQUE: Digital breast tomosynthesis is performed in both the craniocaudal and mediolateral oblique views along with computer-aided detection (CAD). Synthesized 2D images are generated from the tomosynthesis. FINDINGS: There are scattered areas of fibroglandular density (ACR BI-RADS breast composition Category b). There are no significant masses, abnormal calcifications, or other abnormalities. MM/MM tomosynthesis screening BI IMPRESSION: No mammographic evidence of malignancy. ASSESSMENT: BI-RADS BI-RADS 1 - Negative RECOMMENDATION: Routine annual mammography screening. 1 year F/U This examination should not preclude the clinical evaluation of a suspicious palpable abnormality. This patient's information was entered into a reminder system with a target due date for their next mammogram. Dictated By: Jagruti Gracia MD Signed By: <Electronically signed by Jagruti Gracia MD in OV> 04/22/24 0809 DD/ 1130 TD/TT: Returned Materials Inspector: Lisa Galvan MD IMG BI PROCEDURES Edited Resu lt - Final * Hm Pap Smear (11/12/2018) Pap smear Performed us Historical Provider HEALTH MAINTENANCE Final Result from Last 3 Months or Most Recently Relevant to Health Maintenance Insurance [facility] - BCBS [facility] Care Teams Bariatric Program Coordinator Relationship Specialty Start Date End Date Lisa Galvan MD [address] [place] [phone] PCP - General Family Medicine 08/01/12
--- OUTSIDE RECORDS SUMMARY | 2024-12-22 09:52 | XMS_ITS | Encounter Summary ---
Author Organization [facility] Address [address] [place] [address] [address] [place] [address] Care Team Providers Care Montessori Lead Teacher Name Role Phone Lisa Galvan MD Primary Care Provider [phone] Reason for Visit * Reason Comments Med Refill Encounter Details Date Type Department Care Team ([facility] Contact Info) Description 02/04/2023 Refill [facility] [address] [place], [place] [phone] Rona Flores MD [address] [place] [address] Social History Tobacco Use Types Packs/Day Years [...] suspected to have Coronavirus/COVID-19? No / Unsure 02/04/2023 1:49 PM EDT documented as of this encounter Plan of Treatment Upcoming Encounters Date Type Department Care Team ([facility] Contact Info) Description 01/07/2025 2:15 PM EDT Office Visit [facility] [address] [place], [place] [phone] Lisa Galvan MD [address] [place], [place] [phone] documented as of this encounter Visit Diagnoses Not on filedocumented in this encounter Care Teams Montessori Lead Teacher Relationship Specialty Start Date End Date Lisa Galvan MD [address] [place] [phone] PCP - General Family Medicine 08/01/12 documented as of this encounter
--- OUTSIDE RECORDS SUMMARY | 2024-12-22 09:52 | XMS_ITS | Encounter Summary ---
Author Organization [email or web address] Address [address] [facility] 7t [place] [address] Care Team Providers Care Erector Operator Name Role Phone Lisa Galvan MD Primary Care Provider [phone] Reason for Visit * Reason Comments Med Refill Encounter Details Date Type Department Care Team ([facility] Contact Info) Description 08/06/2024 Refill [facility] MED & PEDS [address] [place], [place] [phone] Lisa Galvan MD [address] [place] [address] Social History Tobacco Use Types Packs/Day Years [...] encounter Miscellaneous Notes * Telephone Encounter - Lisa Galvan MD - 08/06/2024 12:15 PM EST Patient needs an appointment to be seen. Please schedule.Diabetic and hasn't been in clinic since 02/2023,thanks documented in this encounter Plan of Treatment Upcoming Encounters Date Type Department Care Team (Late st Contact Info) Description 01/07/2025 2:15 PM EDT Office Visit [facility] MED & PEDS [address] [place] [address] Lisa Galvan MD [address] [place] [address] documented as of this encounter Visit Diagnoses Not on filedocumented in this encounter Care Teams Erector Operator Relationship Specialty Start Date End Date Lisa Galvan MD [address] [place] [address] PCP - General Family Medicine 08/01/12 documented as of this encounter
--- OUTSIDE RECORDS SUMMARY | 2024-12-22 09:52 | XMS_ITS | Clinical Summary ---
Author Organization [facility] ity Address [address] [place] [address] Care Team Providers Care Group Teacher Name Role Phone Lisa Galvan MD Primary Care Provider [phone] Social History Tobacco Use Types Packs/Day Years Used Date Smoking Tobacco: Never Assessed Comments Unknown Sex and Gender Information Value Date Recorded Sex Assigned at Not on file Legal Sex Female 4:48 PM EST Gender Identity Not on file Sexual Orientation Not on file Plan of Treatment Health Maintenance Due Date Last Done Comments Breast Cancer Screening 1975 DTaP,Tdap,and Td Vaccines (1 - Tdap) 12/28/1995 Hepatitis B Vaccines (1 of 3 - 19+ 3-dose series) 12/28/1995 Cervical Cancer Screening: P ap Smear 1997 Colorectal Cancer Screening: Colonoscopy 08/15/2022 Depression Screening 08/15/2022 HIV Screening 08/15/2022 Hepatitis C Screening 08/15/2022 Social Influencers of Health Screening 08/15/2022 COVID-19 Vaccine ( - 2023-2 5 season) 2024 Influenza Vaccine (#1) 2024 HIB Vaccines Aged Out No longer eligi [...] on patient's age to complete this topic MMR Vaccines Aged Out No longer eligi ble based on patient's age to complete this topic Meningococcal ACWY Vaccine Aged Out N o longer eligible based on patient's age to complete this topic Meningococcal B Vaccine Aged Out No l onger eligible based on patient's age to complete this topic Pneumococcal Vaccine: Pediat rics (0 to 5 Years) and At-Risk Patients (6 to 64 Years) Aged Out No longer eligible b ased on patient's age to complete this topic RSV Immunization Patients Un horacio 20 months Aged Out No longer eligible b ased on patient's age to complete this topic Varicella Vaccines Aged Out No longer eligible based on patient's age to complete this topic Care Teams Group Teacher Relationship Specialty Start Date End Date Lisa Galvan MD [address] [place] [phone] PCP - General 03/16/21
--- OUTSIDE RECORDS SUMMARY | 2024-12-22 09:52 | XMS_ITS | Encounter Summary ---
Author Organization [employer] Address [address] [facility] 7t h Floor [address] Care Team Providers Care Teacher Visually Impaired Name Role Phone Lisa Galvan MD Primary Care Provider [phone] Reason for Visit * Reason Comments Med Refill Encounter Details Date Type Department Care Team ([facility] Contact Info) Description 11/30/2024 Refill [facility] ADULT DENTAL [address] [place] [address] Lucy Grimm, DDS [address] [place] [address] Social History Tobacco Use Types Packs/Day Years Used Date Smoking Tobacco: Never Assessed Depression Answer Date Recorded Patient Health Questionnaire-9 Score 4 11/30/2024 Patient Health Questionnaire-9 Score 4 11/30/2024 Last PHQ-9: Questionnaire Data Not on file 0 11/30/2024 Housing Stability Answer Date Recorded What is your housing situation today? I have edilia casillas 11/30/[address] you li [...] encounter Miscellaneous Notes * Telephone Encounter - Sung Gallardo DMD - 11/30/2024 1:36 PM EDT Please follow up with Dr. Araujo documented in this encounter Plan of Treatment Upcoming Encounters Date Type Department Care Team (Late st Contact Info) Description 01/07/2025 2:15 PM EDT Office Visit [facility] CHC MED & PEDS [address] [place] [address] Lisa Galvan MD [address] [place] [address] documented as of this encounter Visit Diagnoses Not on filedocumented in this encounter Additional Health Concerns Assessment Noted Time PHQ-9 Depression Total Score: 4 12/01/19 25 9:28 AM EDT documented as of this encounter Care Teams Teacher Visually Impaired Relationship Specialty Start Date End Date Lisa Galvan MD [address] [place] [address] PCP - General Family Medicine 08/01/12 documented as of this encounter
--- OUTSIDE RECORDS SUMMARY | 2024-12-22 09:52 | XMS_ITS | Encounter Summary ---
Author Organization [employer] Address 75 [facility] 7t [place] [address] Care Team Providers Care Jig Operator Name Role Phone Lisa Galvan MD Primary Care Provider [phone] Reason for Visit * Reason Comments Med Refill Encounter Details Date Type Department Care Team ([facility] Contact Info) Description 05/23/2024 Refill [facility] CHC MED & PEDS [address] [place], [place] [phone] Lisa Galvan MD [address] [place] [address] Irritable bowel syndrome with diarrhea Social History Tobacco Use Types Packs/Day Years Used Date Smoking Tobacco: Never Assessed Housing Stability Answer Date Recorded What is your housing situation today? I have ediliahans casillas 07/17/[address] you [...] Upcoming Encounters Date Type Department Care Team ([facility] st Contact Info) Description 01/07/2025 2:15 PM EDT Office Visit [facility] MED & PEDS [address] [place] [address] Lisa Galvan MD [address] [place] [address] documented as of this encounter Visit Diagnoses Diagnosis Irritable bowel syndrome with diarrhea Irritable bowel syndrome documented in this encounter Care Teams Jig Operator Relationship Specialty Start Date End Date Lisa Galvan MD [address] [place] [address] PCP - General Family Medicine 08/01/12 documented as of this encounter
== END 2024-12-22 09:26 | disposition home or self-care (01) ==
LOC: HO.HVS 09:01
PROVIDERS: PCP Pediatrics; Visit Provider Physician Assistant Surgical
DX: I83.11 Varicose veins of right lower extremity with inflammation (principal); I83.12 Varicose veins of left lower extremity with inflammation
CPT/HCPCS: 99204

== ENCOUNTER → 2024-12-22 09:01 | Outpatient (BNVA) | payer BC, OTHER, SELFPAY | PROVIDERS: PCP Pediatrics; Visit Provider Physician Assistant Surgical ==

== ENCOUNTER 2025-01-01 07:49 | Outpatient (AMB) | payer BC, OTHER, SELFPAY ==
--- OUTSIDE RECORDS SUMMARY | 2025-01-01 07:51 | XMS_ITS | Clinical Summary ---
Author Organization [employer] Address 75 [facility] 7t [place] [address] Care Team Providers Care Commissary Manager Name Role Phone Lisa Galvan MD Primary Care Provider [phone] Allergies No known active allergies Medications Nebulizers misc Take by mouth. Use with inhalation medication as directed 09/19/19 22 Active cholecalciferol (Vitamin D-3) 50 MCG (1999) tablet Take 1 tablet by mouth every 12 (twelve) hours. 01/19/20 22 Active Diclofenac Sodium (Voltaren) 1 % gel Apply topically every 8 (eight) hours. 11/22/19 22 Active glucose blood (FREESTYLE LITE) test strip every 8 (eight) hours. 03/06/20 21 Active Blood Glucose Monitoring Suppl (FreeStyle glucose [...] morning and at bedtime. 10.6 g 2 08/24/20 22 Active Albuterol Sulfate 108 (90 Base) MCG/ACT aerosol powderIndicatio ns:Moderate persistent asthma with exacerbation INHALE 1 PUFF every 6 hours prn wheezing 8.5 each 3 03/05/20 23 Active Additional Information Patient not taking.Reported on 02/14/2024 albuterol 108 (90 Base) MCG/ACT inhaler Inhale 2 puffs every 6 (six) hours if needed for wheezing. 18 g 2 03/06/20 23 Active Continuous Blood Gluc Coat Hanger Shaper Machine Operator (CXR BiosciencesStyle Giacomo reader) device Inject under the skin continuously. 1 each 04/04/20 23 Active Continuous Blood Gluc Sensor (FreeStyle Giacomo 2 Sensor) misc USE DIRECTED 1 each 05/07/20 23 Active albuterol (2.5 MG/3ML) 0.083% nebulizer solution Take 3 mL by nebulization every 4 (four) hours. 75 mL 10/09/19 24 Active levothyroxine (Synthroid, Levoxyl) 100 MCG tablet TAKE 1 TABLET BY MOUTH EVERY DAY 90 tablet 11/04/19 25 Active semaglutide (Ozempic, 1 MG/DOSE,) 4 MG/3ML solution pen-injectorInd ications:Diabet es mellitus without complication (CMS/HCC),Obesi ty with body mass index 30 or greater Inject 1 mg under the skin 1 (one) time per week. 1 each 5 12/01/19 25 Active ibuprofen 800 MG tablet Take 1 tablet (800 mg) by mouth 3 times daily. 90 tablet 1 12/01/19 25 Active dicyclomine (Bentyl) 20 MG tabletIndicatio ns:Irritable bowel syndrome with diarrhea TAKE 1 TABLET BY MOUTH THREE TIMES A DAY 270 tablet 1 12/11/19 25 Active dicyclomine (Bentyl) 20 MG tabletIndicatio ns:Irritable bowel syndrome with diarrhea TAKE 1 TABLET BY MOUTH THREE TIMES A DAY 270 tablet 1 06/15/20 24 2024 Discontinued Active Problems Problem Noted Date [...] Encounters Date Type Department Care Team Description 12/28/2024 Patient Outreach [facility] MED[facility] [address] [place] [phone] Lisa Galvan MD Pre-visit Planning (SDOH screening completed on 11/30/24) 12/09/2024 Refill [facility] MED & PEDS [address] [place] [address] Lisa Galvan MD Irritable bowel syndrome with diarrhea 11/30/2024 9:00 AM EDT Office Visit [facility] MED & PEDS [address] [place] [address] Lisa Galvan MD Acquired hypothyroidism (Primary Dx); Diabetes mellitus without complication (CMS/HCC); Obesity with body mass index 30 or greater; Colon cancer screening; Family history of colon cancer in father; Symptomatic varicose veins of both lower extremities; Dietary counseling; Exercise counseling 11/30/2024 Refill [facility] ADULT DENTAL [address] [place] [phone] Lucy Grimm DDS 11/30/2024 Travel 11/27/2024 Telephone [facility] MED & PEDS [address] [place] [address] Lisa Galvan MD Chart Prep 11/26/2024 Telephone [facility] [address] [place] [phone] Lisa Galvan MD Nurse Triage 11/04/2024 Refill [facility] MED & PEDS [address] [place] [address] Lisa Galvan MD from Last 3 Months [...] Description 01/07/2025 2:15 PM EDT Office Visit [facility] CHC MED & PEDS [address] [place] [address] Lisa Galvan MD [address] [place] [address] Health Maintenance Due Date Last Done Comments [...] 11/30/2024, 10/14/2020, 04/01/2020 Lipid Panel 11/30/2025 11/30/2024, 02/14, 08/22/2022, Additional history exists SDOH Screening 11/30/2025 [...] 9:40 AM EDT) Creatinine, Urine 78.76 mg/dL [facility] Microalbumin Urine 11.0 mg/L [facility] Microalbum Creatinine Ratio Ur 13.9 <30 ug/mg cr [facility] Comment:Albumin/Creatinine R atio Reference Ranges: Normal: < 30 ug/mg creatinine Microalbuminuria: 30 - 300 ug/mg creatinineClinical Albuminuria: > 300 ug/mg creatinine Urine (Urine, Random) 11/30/2024 9:40 AM EDT 11/30/2024 2:18 PM EDT Lisa Galvan MD LAB URINE ORDERABLES Final Re sult Performing Organization Address City/[facility]/ZIP Co de Phone Number [facility] [address] [place] [phone] * TSH W/Reflex to FT4 (11/30/2024 9:37 AM EDT) TSH reflex Free T4 1.29 0.32 - 4.0 uIU/mL [facility] Blood Venous blood specimen / Unknown 11/30/2024 9:37 AM EDT 11/30/2024 2:19 PM EDT us Lisa Galvan MD LAB BLOOD ORDERABLES Final Re sult Performing Organization Address City/[facility]/ZIP Co de Phone Number [facility] [address] [place] [phone] * CBC auto differential (11/30/2024 9:37 AM EDT) White Blood Count 6.8 4.8 - 10.8 X10*3/uL [facility] Red Blood Count 4.80 4.20 - 5.50 X10*6/uL [facility] Hemoglobin 13.4 12.0 - 16.0 g/dl [facility] Hematocrit 41.3 37.0 - 47.0 % [facility] Mean Corpuscular Volume 86.0 80.0 - 98.0 fL [facility] Mean Corpuscular Hemoglobin 27.9 27.0 - 33.0 pg [facility] Mean Corpuscular HGB Conc 32.4 31.0 - 35.0 g/dl [facility] Red Cell Distribution Width 13.2 11.0 - 16.0 % [facility] Platelet Count 293 160 - 400 X10*3/uL [facility] Mean Platelet Volume 12.0 9.4 - 12.3 fL [facility] Neutrophils Percent Auto 64.8 45 - 73 % [facility] Imm Gran Pct Auto 0.3 0.0 - 0.4 % [facility] Lymphocytes Percent Auto 24.7 20 - 40 % [facility] Monocytes Percent Auto 7.4 2 - 11 % [facility] Eosinophils Percent Auto 2.4 0 - 4 % [facility] Basophils Percent Auto 0.4 0 - 2 % [facility] NRBC Pct Auto 0.0 0.0 - 0.2 /100WBC [facility] Neutrophils Absolute Auto 4.4 2.0 - 8.3 x10*3/uL [facility] Imm Gran Abs Auto 0.02 0.00 - 0.03 X10*3/uL [facility] Lymphocytes Absolute Auto 1.7 1.2 - 4.9 X10*3/uL [facility] Monocytes Absolute Auto 0.5 0.1 - 1.2 X10*3/uL [facility] Eosinophils Absolute Auto 0.2 0.0 - 0.4 X10*3/uL [facility] Basophils Absolute Auto 0.0 0.0 - 0.2 X10*3/uL [facility] NRBC Abs Auto 0.000 0.0 - 0.012 X10*3/uL [facility] Blood Venous blood specimen / Unknown 11/30/2024 9:37 AM EDT 11/30/2024 2:19 PM EDT Lisa Galvan MD LAB BLOOD ORDERABLES Final Re sult Performing Organization Address City/[facility] Co de Phone Number [facility] [address] [place] [address] [phone] * (ABNORMAL) Hepatic Function Panel (11/30/2024 9:37 AM EDT) Bilirubin, Total 0.4 0.0 - 1.0 mg/dL [facility] Bilirubin, Direct 0.1 0.0 - 0.5 mg/dL [facility] Aspartate Amino Transferase 16 5 - 31 U/L [facility] Alanine Aminotransferase 25 0 - 31 U/L [facility] Total Protein 7.7 6.5 - 8.0 g/dL [facility] Albumin Level 4.2 3.5 - 5.0 g/dL [facility] Alkaline Phosphatase 147(H) 39 - 117 U/L [facility] Blood Venous blood specimen / Unknown 11/30/2024 9:37 AM EDT 11/30/2024 2:19 PM EDT Lisa Galvan MD LAB BLOOD ORDERABLES Final Re sult Performing Organization Address [facility]/ZIP Co de Phone Number [facility] [address] [place] [phone] * Lipid Panel, Standard (11/30/2024 9:37 AM EDT) Triglycerides 131 <150 mg/dL [facility] Comment:Desirable Triglyceri de: less than 150 mg/dLBorderline High Triglyceride 150-199 mg/dLHigh Triglyceride: 200-499 mg/dLVery High Triglyceride: greater than or equal to 5OO mg/dL Cholesterol 174 <200 mg/dL [facility] Comment:Desirable Cholestero l: less than 200 mg/dLBorderline High Cholesterol: 200-239 mg/dLHigh Cholesterol: greater than 239 mg/dL LDL Cholesterol Calculated 94 <100 mg/dL [facility] Comment:Desirable LDL: less than 100 mg/dLNear Optimal/Above Optimal LDL: 110- 129 mg/dLBorderline High LDL: 130-159 mg/dLHigh LDL: 160-189 mg/dLVery High LDL: greater than or equal to 190 mg/dL HDL Cholesterol 54 >40 mg/dL [facility] Comment:Desirable HDL: great er than 40 mg/dL Note: This HDL assay may give artificially low results in patients with liver disease. Blood Venous blood specimen / Unknown 11/30/2024 9:37 AM EDT 11/30/2024 2:19 PM EDT Lisa Galvan MD LAB BLOOD ORDERABLES Final Re sult [facility] [address] [place] [address] [phone] * (ABNORMAL) POCT A1C (11/30/2024 9:05 AM EDT) Hemoglobin A1C 7.9(A) 4.0 - 6.0 % QC Media Lot # Comment:[id number] Lot# Expiration Date Comment:07/20/2026 Blood 11/30/2024 9:05 AM EDT us Lisa Galvan MD POINT OF CARE TEST ENTER/EDIT ORDERABLES Final Result * (ABNORMAL) POCT glucose manually resulted (11/30/2024 9:04 AM EDT) Glucose Blood, POC 388(A) 60 - 200 mg/dL [employer] Media Lot # Comment:[id number] Lot# Expiration Date Comment:03/18/2025 Blood Capillary blood specimen / Unknown 11/30/2024 9:04 AM EDT us Lisa Galvan MD POINT OF CARE TEST ENTER/EDIT ORDERABLES Final Result * BI Mammogram Screening Tomosynthesis Bilateral (03/30/2024 11:30 AM EDT) Anatomical Region Laterality Modality Breast Bilateral Mammography 03/30/2024 11:3 0 AM EDT Narrative 04/22/2024 8:13 AM EDT ? [facility] ? [address] ?[place], [place] [address] ? Mammography Report ? Signed ? Patient: Hernandez,Nixsaly ?MR#: [id number] ?? [id number] ? : 1975 ?Acct:[id number] ? Age/Sex: 48 / F ?ADM Date: 03/30/24 ? Loc: HO.MAMMO ? Attending Dr: Lisa Galvan MD ? Ordering Physician: Lisa Galvan MD ?Results: 1Ne ?? gative ? Date of Service: 03/30/24 ?Follow Up: 1 Year From Orig ?? inal Mammogram ? Procedure(s): MM tomosynthesis screening BI ?? Accession Number(s): [id number] ? cc: Lisa Galvan MD ? EXAMINATION: [...] 0809 ? DD/ 1130 ? TD/TT: ? Bone Worker: ? Procedure Note Hi, Jorge - 04/22/2024 [facility] [address] [place] [address] [place] [address] Mammography Report Signed Patient: Monie HernandezMR#: [id number] : 1975Acct:[id number] Age/Sex: 48 / FADM Date: 03/30/24 Loc: TOMY Attending Dr: Lisa Galvan MD Ordering Physician: Lisa Galvanesults: 1Ne gative Date of Service: 03/30/24Follow Up: 1 Year From Orig inal Mammogram Procedure(s): MM tomosynthesis screening BI Accession Number(s): [id number] cc: Lisa Galvan MD EXAMINATION: MM SCREENING [...] in OV> 04/22/24 0809 DD/ 1130 TD/TT: Bone Worker: Lisa Galvan MD IMG BI PROCEDURES Edited Resu lt - Final * Hm Pap Smear (11/12/2018) Pap smear Performed Historical Provider HEALTH MAINTENANCE Final Result from Last 3 Months or Most Recently Relevant to Health Maintenance Insurance [facility] NAV[facility] DENT[facility] - BCBS [facility] Care Teams Commissary Manager Relationship Specialty Start Date End Date Lisa Galvan MD [address] [place] [phone] PCP - General Family Medicine 08/01/12
--- OUTSIDE RECORDS SUMMARY | 2025-01-01 07:51 | XMS_ITS | Encounter Summary ---
Author Organization [employer] Address [address] [facility] 7t [place] [address] Care Team Providers Care Mechanical Engineering Lecturer Name Role Phone Lisa Galvan MD Primary Care Provider [phone] Reason for Visit * Reason Comments Med Refill Encounter Details Date Type Department Care Team ([facility] Contact Info) Description 08/06/2024 Refill [facility] CHC MED & PEDS [address] [place], [place] [phone] Lisa Galvan MD [address] [place] [address] Social History Tobacco Use Types Packs/Day Years [...] Description 01/07/2025 2:15 PM EDT Office Visit [facility] MED & PEDS [address] [place] [address] Lisa Galvan MD [address] [place] [address] documented as of this encounter Visit Diagnoses Not on filedocumented in this encounter Care Teams Mechanical Engineering Lecturer Relationship Specialty Start Date End Date Lisa Galvan MD [address] [place] [address] PCP - General Family Medicine 08/01/12 documented as of this encounter
--- OUTSIDE RECORDS SUMMARY | 2025-01-01 07:51 | XMS_ITS | Encounter Summary ---
Author Organization [email or web address] [facility] Address [address] [place] [address] 7t [place] [address] Care Team Providers Care Crusher Wet Ground Mica Name Role Phone Lisa Galvan MD Primary Care Provider [phone] Reason for Visit * Reason Comments Med Refill Encounter Details Date Type Department Care Team ([facility] Contact Info) Description 02/04/2023 Refill [facility]ED[facility] [address] [place], [place] [phone] Rona Flores MD [address] [place] [address] Social History Tobacco Use Types Packs/Day Years [...] Upcoming Encounters Date Type Department Care Team ([facility] Contact Info) Description 01/07/2025 2:15 PM EDT Office Visit [facility] CHC MED & PEDS [address] [place], [place] [phone] Lisa Galvan MD [address] [place], [place] [phone] documented as of this encounter Visit Diagnoses Not on filedocumented in this encounter Care Teams Crusher Wet Ground Mica Relationship Specialty Start Date End Date Lisa Galvan MD [address] [place] [phone] PCP - General Family Medicine 08/01/12 documented as of this encounter
--- OUTSIDE RECORDS SUMMARY | 2025-01-01 07:51 | XMS_ITS | Clinical Summary ---
Author Organization [facility] ity Address [address] [place] [address] Care Team Providers Care Applications Administrator Name Role Phone Lisa Galvan MD Primary Care Provider [phone] Social History Tobacco Use Types Packs/Day Years [...] - 2023-2 5 season) 2024 Influenza Vaccine (Season Ended) 2025 HIB Vaccines Aged Out No longer eligi [...] age to complete this topic Care Teams Applications Administrator Relationship Specialty Start Date End Date Lisa Galvan MD [address] [place] [phone] PCP - General 03/16/21
--- OUTSIDE RECORDS SUMMARY | 2025-01-01 07:51 | XMS_ITS | Encounter Summary ---
Author Organization [employer] Address 75 [facility] 7t [place] [address] Care Team Providers Care Mold Sander Name Role Phone Lisa Galvan MD Primary Care Provider [phone] Encounter Details Date Type Department Care Team ([facility] st Contact Info) Description 03/06/2023 Telephone [facility] CHC MED & PEDS [address] [place], [place] [phone] Lisa Galvan MD [address] [place] [address] Social History Tobacco Use Types Packs/Day Years [...] Description 01/07/2025 2:15 PM EDT Office Visit [facility] [address] [place] [address] Lisa Galvan MD [address] [place] [address] documented as of this encounter Visit Diagnoses Not on filedocumented in this encounter Care Teams Mold Sander Relationship Specialty Start Date End Date Lisa Galvan MD [address] [place] [address] PCP - General Family Medicine 08/01/12 documented as of this encounter
--- OUTSIDE RECORDS SUMMARY | 2025-01-01 07:51 | XMS_ITS | Encounter Summary ---
Author Organization [employer] Address 75 [facility] 7t [place] [address] Care Team Providers Care Media Relations Intern Name Role Phone Lisa Galvan MD Primary Care Provider [phone] Reason for Visit * Reason Comments Med Refill Encounter Details Date Type Department Care Team ([facility] Contact Info) Description 11/30/2024 Refill [facility] ADULT DENTAL [address] [place] [address] Lucy Grimm, DDS [address] [place] [address] Social History Tobacco Use Types Packs/Day Years [...] Description 01/07/2025 2:15 PM EDT Office Visit [facility]C MED & PEDS [address] [place] [address] Lisa Galvan MD [address] [place] [address] documented as of this encounter Visit Diagnoses Not on filedocumented in this encounter Additional Health Concerns Assessment Noted Time PHQ-9 Depression Total Score: 4 12/01/19 25 9:28 AM EDT documented as of this encounter Care Teams Media Relations Intern Relationship Specialty Start Date End Date Lisa Galvan MD [address] [place] [address] PCP - General Family Medicine 08/01/12 documented as of this encounter
--- OUTSIDE RECORDS SUMMARY | 2025-01-01 07:51 | XMS_ITS | Encounter Summary ---
Author Organization [employer] Address [address] [facility] 7t [place] [address] Care Team Providers Care Rn First Assist Name Role Phone Lisa Galvan MD Primary Care Provider [phone] Reason for Visit * Reason Comments Med Refill Encounter Details Date Type Department Care Team ([facility] Contact Info) Description 05/23/2024 Refill [facility] MED & PEDS [address] [place], [place] [phone] Lisa Galvan MD [address] [place] [address] Irritable bowel syndrome with diarrhea Social History [...] Upcoming Encounters Date Type Department Care Team ([facility] st Contact Info) Description 01/07/2025 2:15 PM EDT Office Visit [facility] MED & PEDS [address] [place] [address] Lisa Galvan MD 505 [place] [address] documented as of this encounter Visit Diagnoses Diagnosis Irritable bowel syndrome with diarrhea Irritable bowel syndrome documented in this encounter Care Teams Rn First Assist Relationship Specialty Start Date End Date Lisa Galvan MD 505 [place] [address] PCP - General Family Medicine 08/01/12 documented as of this encounter
--- OUTSIDE RECORDS SUMMARY | 2025-01-01 07:51 | XMS_ITS | Encounter Summary ---
Author Organization [employer] Address [address] [facility] 7t [place] [address] Care Team Providers Care Editor Department Name Role Phone Lisa Galvan MD Primary Care Provider [phone] Reason for Visit * Reason Comments Med Change Request Encounter Details Date Type Department Care Team ([facility] Contact Info) Description 07/19/[address] [facility] CHC MED & PEDS [address] [place], [place] [phone] Lisa Galvan MD [address] [place] [address] Social History Tobacco Use Types Packs/Day Years [...] Upcoming Encounters Date Type Department Care Team ([facility] st Contact Info) Description 01/07/2025 2:15 PM EDT Office Visit [facility] MED & PEDS [address] [place] [address] Lisa Galvan MD [address] [place] [address] documented as of this encounter Visit Diagnoses Not on filedocumented in this encounter Care Teams Editor Department Relationship Specialty Start Date End Date Lisa Galvan MD [address] [place] [address] PCP - General Family Medicine 08/01/12 documented as of this encounter
--- OUTSIDE RECORDS SUMMARY | 2025-01-01 07:51 | XMS_ITS | Encounter Summary ---
Author Organization [employer] [facility] Address [address] [place] [address] 7t [place] [address] Care Team Providers Care Cobbler Mckay Name Role Phone Lisa Galvan MD Primary Care Provider [phone] Reason for Visit * Reason Comments Med Change Request Encounter Details Date Type Department Care Team ([facility] Contact Info) Description 03/05/2023 Refill [facility] CHC MED & PEDS [address] [place], [place] [phone] Lisa Galvan MD 505 [place] [address] Moderate persistent asthma with exacerbation Social History [...] Upcoming Encounters Date Type Department Care Team ([facility] Contact Info) Description 01/07/2025 2:15 PM EDT Office Visit [facility] CHC MED & PEDS [address] [place], [place] [phone] Lisa Galvan MD 505 [place], [place] [phone] documented as of this encounter Visit Diagnoses Diagnosis Moderate persistent asthma with exacerbation Unspecified asthma, with exacerbation documented in this encounter Care Teams Cobbler Mckay Relationship Specialty Start Date End Date Lisa Galvan MD [address] [facility] [place] [address] PCP - General Family Medicine 08/01/12 documented as of this encounter
--- OUTSIDE RECORDS SUMMARY | 2025-01-01 07:51 | XMS_ITS | Encounter Summary ---
Author Organization [employer] Address [address] [facility] 7t [place] [address] Care Team Providers Care Concert Singer Name Role Phone Lisa Galvan MD Primary Care Provider [phone] Reason for Visit * Reason Comments Pre-visit Planning SDOH screening compl eted on 11/30/24 Encounter Details Date Type Department Care Team ([facility] st Contact Info) Description 12/28/2024 Patient Outreach [facility] MEDICINE [address] [place] [address] Lisa Galvan MD [address] [place] [address] Pre-visit Planning (SDOH screening completed on 11/30/24) Social History Tobacco Use Types Packs/Day Years [...] AM EDT documented as of this encounter Progress Notes * Erica Antonio - 12/28/2024 2:48 PM EDT CC Erica munoz successful outbound call to patient for pre-visit planning. Patient name and confirmed. Patient confirms appt date and time, and has transportation arrangements. Biggest concern for appointment at this time is no concerns. Patient advised to bring to appointment a photo id and insurance card. Appropriate screenings completed in anticipation of appointment. documented in this encounter Plan of Treatment Upcoming Encounters Date Type Department Care Team ([facility] st Contact Info) Description 01/07/2025 2:15 PM EDT Office Visit [facility] MED & PEDS 505 [place] [address] Lisa Galvan MD 505 [place] [address] documented as of this encounter Visit Diagnoses Not on filedocumented in this encounter Additional Health Concerns Assessment Noted Time PHQ-9 Depression Total Score: 4 12/01/19 25 9:28 AM EDT documented as of this encounter Care Teams Concert Singer Relationship Specialty Start Date End Date Lisa Galvan MD [address] [place] [address] PCP - General Family Medicine 08/01/12 documented as of this encounter
--- OUTSIDE RECORDS SUMMARY | 2025-01-01 07:51 | XMS_ITS | Encounter Summary ---
Author Organization [employer] Address 75 [facility] 7t [place] [address] Care Team Providers Care Hydro Technician Name Role Phone Lisa Galvan MD Primary Care Provider [phone] Reason for Visit * Reason Onset Date Comments Med Refill 10/08/2023 Encounter Details Date Type Department Care Team ([facility] st Contact Info) Description 10/08/2023 Telephone [facility] MEDICINE [address] [place] [address] Lisa Galvan MD [address] [place] [address] Med Refill Social History Tobacco Use Types [...] 0.083% nebulizer solution To be sent to: [facility]/pharmacy #[id number] - [place], [place] - [address] [facility] [place] [address] documented in this encounter Plan of Treatment Upcoming Encounters Date Type Department Care Team (Late st Contact Info) Description 01/07/2025 2:15 PM EDT Office Visit [facility] CHC MED & PEDS [address] [place] [address] Lisa Galvan MD 505 [place] [address] documented as of this encounter Visit Diagnoses Not on filedocumented in this encounter Care Teams Hydro Technician Relationship Specialty Start Date End Date Lisa Galvan MD 505 [place] [address] PCP - General Family Medicine 08/01/12 documented as of this encounter
--- NOTE | 2025-01-01 07:54 | MHC.OFFVIS ---
Vital Signs 01/01/25 08:04 Height 5 ft 8 in Weight 268 lb BMI 40.7 BP 135/85 Blood Pressure Location Lt brachial Position Sitting Pulse 87 Pulse Oximetry (%) 97 Oxygen Delivery Method Room Air Intake Visit Reasons: Colonoscopy Screening was Bailey MCCOY Intake Note: Patient complex follow up for 2nd pre colonoscopy /Bailey artis 12/03/2022. Patient cc: nauseas with vomiting, abdominal pain with bloating on and off, acid reflex and between diarrhea and constipation with some blood on and off. Patient said he did an EGD/Colonoscopy 10 yrs ago with Andres at [facility]. Manager Competitive Intelligence Required: No Accompanied by: Self / Same As Patient Allergies No Known Allergies Allergy (Verified 01/01/25 08:01) Medication List - Last Reconciled 01/01/25 by Karon Cummings CNP albuterol sulfate mg inhalation Q4H PRN bisacodyl (Dulcolax (bisacodyl)) 10 mg (2 x 5 mg) PO ONCE 1 day blood sugar diagnostic (FreeStyle Lite Strips) As directed blood-glucose meter (FreeStyle [place] Lite kit) As directed cholecalciferol (vitamin D3) 50 mcg PO BID dicyclomine 20 mg PO TID famotidine 20 mg PO DAILY PRN ibuprofen 800 mg PO TID levothyroxine 100 mcg PO DAILY polyethylene glycol 3350 (Miralax) 238 grams PO ONCE 1 day semaglutide (Ozempic) 1 mg subcut QWEEK HPI HPI Colonoscopy Screening was Bailey PT: Details: Patient is a 49-year-old female with PMH of hypothyroidism and DMII. Last visit with MACI Herrera 12/03/2022 for pre colonoscopy screening (2nd colo). Pt is here today for pre screening colonocopy. States she never received a call for scheduling in 2022. Last colo 2009 following GI bleeding and diarrhea. Also had EGD same year following unmanaged GERD. (+) Prashant garland , completed treatment. She reports intermittent epigastric ab pain X 1 year. She describes the pain as twisting and tight . She currently denies any pain. Reports new onset of pyrosis with regurgitation-two weeks ago. Also with sensation of food getting stuck, denies any choking. States symptoms are aggravated by eating fast. She reports taking iburpofen 800 mg nightly two weeks to manage foot pain. Associated symptoms: diarrhea, bleeding-light in color, nausea daily, vomiting once/week, decreased appetite X one month Aggravating factors: noc Alleviating attempts: avoiding spicy food, dicyclomine 20 mg TID Patient denies: systemic symptoms, hematemesis, unintentional wt loss, ab pain, bladder changes or melena. She reports intermittent chest pain x 1 year. Most recent episode was yesterday. Shares she sought ER care at [facility] ER at time of onset 1 year ago with negative findings. She currently denies any pain. She does not have a employment director. Associated symptoms: SOA, radiation to left arm Aggravating factors: pressure Common foods consume: skips breakfast-one cup of coffee lunch: tuna or chicken salad wrap, sandwich dinner: rice, pasta, ground turkey, seafood , beans minimal fruit and vegetables water for hydration Social hx: denies ETOH use denies recreational drug use former smoker, cessation 12-13 years ago denies personal hx of CA Family hx: Father, colon CA, currently on hospice secondary to CVA Paternal uncles, colon CA Mother-cardiac disease [facility] Medical History (Updated 01/01/25 @ 09:46 by Karon Cummings CNP) Abdominal pain Diarrhea Chest pain Elevated alkaline phosphatase level Hypothyroid Diabetes type 2, controlled Surgical History (Updated 01/01/25 @ 08:17 by Sissy Romero) History of esophagogastroduodenoscopy (EGD) History of colposcopy Tubal ligation status Social History Household Members: Spouse Alcohol intake: never Patient Tobacco Use Status: Never used Tobacco Review of Systems Const Reports as per HPI ENT Reports as per HPI Card Reports as per HPI Resp Reports as per HPI GI Reports as per HPI Reports as per HPI Physical Exam Vital Signs: Last Vital Signs Pulse 87 01/01/25 08:04 BP 135/85 01/01/25 08:04 Pulse Ox 97 01/01/25 08:04 Oxygen Delivery Method Room Air 01/01/25 08:04 BMI result Body Mass Index 40.7 Const General: healthy appearing and no acute distress Nutritional Appearance: obese Orientation/consciousness: patient oriented x3 HEENT Head: Yes normal to inspection, Yes normocephalic and Yes atraumatic Face and sinus: Yes normal facial exam Eyes General: appearance normal, both eyes and all related structures Neck Neck: Yes normal visual inspection Resp Effort & Inspection: normal respiratory effort, able to speak in complete sentences, no tracheal deviation and symmetric chest movement Auscultation: clear to auscultation bilaterally Cardio Jugular venous distension: no JVD Rate: regular rate Rhythm: regular rhythm Heart sounds: S1 normal heart sound present, S2 normal heart sound present, no gallops and no murmurs GI Inspection: Yes normal to inspection, No distended and Yes obesity Palpation (GI): Soft to palpation, not firm, nontender and No hepatosplenomegaly present Auscultation: normal bowel sounds Neuro General: patient oriented x3 Gait exam (Neuro): Normal gait present Psych Appearance: grossly normal Mental Status: mental status grossly normal Speech and movement: Normal speech and movement present Affect: normal affect Attitude: cooperative Thought process: Normal thought process present Thought content: Normal thought content present Insight: Good insight present (Psych) Judgement: Good judgement present (Psych) Results Reviewed Results Reviewed: Laboratory Tests 11/30/24 09:37 Total Bilirubin 0.4 Direct Bilirubin 0.1 AST 16 ALT 25 Alkaline Phosphatase 147 H Total Protein 7.7 Albumin 4.2 12/16/2009 colonoscopy indications: GI bleeding and diarrhea normal colonoscopy pathology: Sigmoid biopsy, unremarkable colonic mucosa 04/21/2010 EGD Indications: Refractory abdominal pain unresponsive to PPI impression: Gastritis pathology: A. Bx duodenum, Unremarkable duodenal mucosa B. Atrial biopsy, gastric antral type mucosa with moderate active chronic gastritis. H pylori positive. C. Biopsy EG junction, gastroesophageal junction mucosa with moderate active chronic inflammation consistent with GERD Assessment & Plan Assessment & Plan (1) Chest pain: Code(s): R07.9 - Chest pain, unspecified Category: Medical Qualifiers: Chest pain type: unspecified Qualified Code(s): R07.9 - Chest pain, unspecified Plan: Cardiac risk factors include obesity, former smoker and and family history of cardiac disease. Symptoms could be musculoskeletal induced secondary to employment responsibilities. However, given risk factors and upcoming procedure we will need Cardiology clearance. She is agreeable to referral as well as to complete EKG. Strict ER precautions reviewed. (2) Elevated alkaline phosphatase level: Code(s): R74.8 - Abnormal levels of other serum enzymes Category: Medical Plan: Alk-phos elevated the last 2 collections, most recent elevation at 147 collected on 11/30/2024. Advise additional labs to help identify source, she is agreeable and we will complete fasting labs today. (3) Acid reflux: Code(s): K21.9 - Gastro-esophageal reflux disease without esophagitis Category: Medical Qualifiers: Esophagitis presence: without esophagitis Qualified Code(s): K21.9 - Gastro-esophageal reflux disease without esophagitis Plan: Evident on April 2010 EGD. Symptoms occurring infrequently. Shared decision-making to trial an H2 leticia for breakthrough symptoms. Prescription sent to preferred pharmacy. She will also need a repeat EGD. We will consider barium swallow. Education on GERD prevention-Advised against heavy meals. Encouraged small frequent meals VS large meals, remaining upright after meals x 2-3 hours, avoid late night eating/spicy foods/caffeine/alcohol/known triggers and tight fitting clothes (4) Diarrhea: Code(s): R19.7 - Diarrhea, unspecified Category: Medical Qualifiers: Diarrhea type: unspecified type Qualified Code(s): R19.7 - Diarrhea, unspecified Plan: Etiology of symptoms unclear. Her thyroid was stable at collection last month. Likely not infectious given in extent of symptoms-we will confirm. We will obtain additional screening labs to rule out celiac or inflammatory as source. Her diet could use some more fiber, we discussed adding that via whole foods AND with supplementation. She is not keen on supplementation at this time. Reinforced lifestyle modifications to promote regularity and bulking of stools: -higher fiber diet, examples provided -adequate hydration with water -150 minutes of moderate intensity exercise per week (5) Abdominal pain: Code(s): R10.9 - Unspecified abdominal pain Category: Medical Qualifiers: Abdominal location: epigastric Qualified Code(s): R10.13 - Epigastric pain Plan: Suspicion for PUD. Possible association with GERD symptoms. H pylori positive in 2009 and treated. We will repeat testing today. We will consider ultrasound if negative and symptoms persist at follow-up. Advised against NSAIDs. Plan Follow-up in 8 weeks or sooner as needed Time: I spent a total of 60 minutes on the date of encounter which includes: Preparing to see the patient (reviewed previous documentation, test results and medical history) Performing a medically appropriate exam and/or evaluation Ordering medications, tests, and procedures Documenting clinical information in the health record Orders: Orders Transglutaminase IgA Today R74.8 - Abnormal levels of other serum enzymes Vitamin K1 Today R74.8 - Abnormal levels of other serum enzymes Vitamin E Today R74.8 - Abnormal levels of other serum enzymes Vitamin D 1,25 dihydroxy Today R74.8 - Abnormal levels of other serum enzymes Vitamin A Today R74.8 - Abnormal levels of other serum enzymes Vitamin B12 and Folate Today R74.8 - Abnormal levels of other serum enzymes Ferritin Today D64.9 - Anemia, unspecified Alkaline Phosphatase Isoenzyme Today R74.8 - Abnormal levels of other serum enzymes ECG 12 lead EKG Today R07.9 - Chest pain, unspecified C Reactive Protein Today R74.8 - Abnormal levels of other serum enzymes Calprotectin, Fecal Today R74.8 - Abnormal levels of other serum enzymes GI Panel Today R74.8 - Abnormal levels of other serum enzymes Lipase Today R74.8 - Abnormal levels of other serum enzymes H Pylori Breath Test Today Liver Panel Today R74.8 - Abnormal levels of other serum enzymes Referrals Cardiology Referral R07.9 - Chest pain, unspecified Medications: New famotidine Take one tablet daily as needed for acid reflux 20 mg PO DAILY PRN 90 tabs 1RF GERD Changed From polyethylene glycol 3350 (Miralax) Take as directed by mouth the day before your procedure. 238 grams PO ONCE 1 day 238 grams 0RF To polyethylene glycol 3350 (Miralax) Per colonoscopy prep instructions 238 grams PO ONCE 1 day 238 grams 0RF From bisacodyl (Dulcolax (bisacodyl)) Take 2 tablets by mouth at 12:00pm the day before your procedure. 10 mg (2 x 5 mg) PO ONCE 1 day 2 tabs 0RF colonoscopy prep Z12.11 - Encounter for screening for malignant neoplasm of colon To bisacodyl (Dulcolax (bisacodyl)) Take 3 tablets by mouth at 12:00pm the day before your procedure. 15 mg (3 x 5 mg) PO ONCE 1 day 3 tabs 0RF colonoscopy prep Z12.11 - Encounter for screening for malignant neoplasm of colon Coding Level of Care Code Established Pt Est Pt Level 4 (06256) Patient Type Established Diagnoses Chest pain, unspecified type R07.9 Chest pain type: unspecified Elevated alkaline phosphatase level R74.8 Gastroesophageal reflux disease without esophagitis K21.9 Esophagitis presence: without esophagitis Diarrhea, unspecified type R19.7 Diarrhea type: unspecified type Epigastric pain R10.13 Abdominal location: epigastric
[2025-01-01 08:04] VITALS: BP 135/85; PULSE 87; O2SAT 97; BMI 40.7
== END 2025-01-01 09:32 | disposition home or self-care (01) ==
LOC: HO.HGI 07:49
PROVIDERS: PCP Pediatrics; Visit Provider Nurse Practitioner Family
DX: R07.9 Chest pain, unspecified (principal); R74.8 Abnormal levels of other serum enzymes; K21.9 Gastro-esophageal reflux disease without esophagitis; R19.7 Diarrhea, unspecified; R10.13 Epigastric pain
CPT/HCPCS: 99215; 99417

== ENCOUNTER → 2025-01-01 07:49 | Outpatient (REF) | payer BC, OTHER, SELFPAY ==
--- NOTE | 2025-01-01 09:54 | ECG_ITS ---
Test Reason : chest pain Blood Pressure : */* mmHG Vent. Rate : 84 BPM Atrial Rate : 84 BPM P-R Int : 130 ms QRS Dur : 88 ms QT Int : 386 ms P-R-T Axes : 62 41 54 degrees QTcB Int : 456 ms Normal sinus rhythm Normal ECG No previous ECGs available Referred By: Karon Cummings Electronically Signed By: MATHEUS ANTONIO MD
--- OUTSIDE RECORDS SUMMARY | 2025-01-01 10:30 | XMS_ITS | Encounter Summary ---
Author Organization [employer] Address [address] [facility] 7t [place] [address] Care Team Providers Care Electronic Warfare Specialist Name Role Phone Lisa Galvan MD Primary Care Provider Reason for Visit * Reason Comments Med Refill Encounter Details Date Type Department Care Team ([facility] Contact Info) Description 05/23/2024 Refill [facility] CHC MED & PEDS [address] [place], [place] [phone] Lisa Galvan MD [address] [place] [address] Irritable bowel syndrome with diarrhea Social History [...] Upcoming Encounters Date Type Department Care Team ([facility] st Contact Info) Description 01/07/2025 2:15 PM EDT Office Visit [facility] MED & PEDS [address] [place] [address] Lisa Galvan MD [address] [place] [address] documented as of this encounter Visit Diagnoses Diagnosis Irritable bowel syndrome with diarrhea Irritable bowel syndrome documented in this encounter Care Teams Electronic Warfare Specialist Relationship Specialty Start Date End Date Lisa Galvan MD [address] [place] [address] PCP - General Family Medicine 08/01/12 documented as of this encounter
--- OUTSIDE RECORDS SUMMARY | 2025-01-01 10:30 | XMS_ITS | Clinical Summary ---
Author Organization [facility] ity Address [address] [place] [address] Care Team Providers Care Mica Miner Name Role Phone Lisa Galvan MD Primary Care Provider [phone] Social History Tobacco Use Types Packs/Day Years [...] age to complete this topic Care Teams Mica Miner Relationship Specialty Start Date End Date Lisa Galvan MD [address] [place] [phone] PCP - General 03/16/21
--- OUTSIDE RECORDS SUMMARY | 2025-01-01 10:30 | XMS_ITS | Encounter Summary ---
Author Organization [employer] Address [address] [facility] 7t [place] [address] Care Team Providers Care Construction Project Coordinator Name Role Phone Lisa Galvan MD Primary Care Provider [phone] Reason for Visit * Reason Comments Pre-visit Planning SDOH screening compl eted on 11/30/24 Encounter Details Date Type Department Care Team ([facility] st Contact Info) Description 12/28/2024 Patient Outreach [facility] MEDICINE [address] [place] [address] Lisa Galvan MD [address] [place] [phone] Pre-visit Planning (SDOH screening completed on 11/30/24) [...] Upcoming Encounters Date Type Department Care Team ([facility] st Contact Info) Description 01/07/2025 2:15 PM EDT Office Visit [facility] MED & PEDS [address] [place] [address] Lisa Galvan MD [address] [place] [address] documented as of this encounter Visit Diagnoses Not on filedocumented in this encounter Additional Health Concerns Assessment Noted Time PHQ-9 Depression Total Score: 4 12/01/19 25 9:28 AM EDT documented as of this encounter Care Teams Construction Project Coordinator Relationship Specialty Start Date End Date Lisa Galvan MD [address] [place] [address] PCP - General Family Medicine 08/01/12 documented as of this encounter
--- OUTSIDE RECORDS SUMMARY | 2025-01-01 10:30 | XMS_ITS | Encounter Summary ---
Author Organization [employer] Address [address] [facility] 7t [place] [address] Care Team Providers Care Specialty Manufacturing Supervisor Name Role Phone Lisa Galvan MD Primary Care Provider [phone] Reason for Visit * Reason Onset Date Comments Med Refill 10/08/2023 Encounter Details Date Type Department Care Team ([facility] st Contact Info) Description 10/08/2023 Telephone [facility] MEDICINE [address] [place] [address] Lsia Galvan MD [address] [place] [address] Med Refill Social History Tobacco Use Types [...] 0.083% nebulizer solution To be sent to: [facility]/pharmacy #[id number] - [place], [place] - [address] [facility] [place] [address] documented in this encounter Plan of Treatment Upcoming Encounters Date Type Department Care Team (Late st Contact Info) Description 01/07/2025 2:15 PM EDT Office Visit [facility] CHC MED & PEDS [address] [place] [address] Lisa Galvan MD [address] [place] [address] documented as of this encounter Visit Diagnoses Not on filedocumented in this encounter Care Teams Specialty Manufacturing Supervisor Relationship Specialty Start Date End Date Lisa Galvan MD [address] [place] [address] PCP - General Family Medicine 08/01/12 documented as of this encounter
--- OUTSIDE RECORDS SUMMARY | 2025-01-01 10:30 | XMS_ITS | Encounter Summary ---
Author Organization [employer] Address [address] [facility] 7t [place] [address] Care Team Providers Care Drafter Topographical Name Role Phone Lisa Galvan MD Primary Care Provider Reason for Visit * Reason Comments Med Change Request Encounter Details Date Type Department Care Team ([facility] Contact Info) Description 07/19/2023 Refill [facility] CH[facility] MED & PEDS [address] [place], [place] [phone] Lisa Galvan MD [address] [place] [address] Social History Tobacco Use Types Packs/Day Years [...] Upcoming Encounters Date Type Department Care Team ([facility] st Contact Info) Description 01/07/2025 2:15 PM EDT Office Visit [facility] MED & PEDS [address] [place] [address] Lisa Galvan MD [address] [place] [address] documented as of this encounter Visit Diagnoses Not on filedocumented in this encounter Care Teams Drafter Topographical Relationship Specialty Start Date End Date Lisa Galvan MD [address] [place] [address] PCP - General Family Medicine 08/01/12 documented as of this encounter
--- OUTSIDE RECORDS SUMMARY | 2025-01-01 10:30 | XMS_ITS | Clinical Summary ---
Author Organization [employer] Address [address] [facility] 7t [place] [address] Care Team Providers Care Neon Glass Blower Name Role Phone Lisa Galvan MD Primary Care Provider [phone] Allergies No known active allergies Medications Nebulizers [...] 2 03/06/20 23 Active Continuous Blood Gluc Environmental Services Assistant ([employer] Giacomo reader) device Inject under the skin [...] Department Care Team Description 12/28/2024 Patient Outreach [facility] MEDICINE [address] [place] [phone] Lisa Galvan MD Pre-visit Planning (SDOH screening completed on 11/30/24) 12/09/2024 Refill [facility] MED & PEDS [address] [place] [address] Lisa Galvan MD Irritable bowel syndrome with diarrhea 11/30/2024 9:00 AM EDT Office Visit [facility] MED & PEDS [address] [place] [address] Lisa Galvan MD Acquired hypothyroidism (Primary Dx); Diabetes mellitus without complication (CMS/HCC); Obesity with body mass index 30 or greater; Colon cancer screening; Family history of colon cancer in father; Symptomatic varicose veins of both lower extremities; Dietary counseling; Exercise counseling 11/30/2024 Refill [facility] ADULT DENTAL [address] [place] [phone] Lucy Grimm DDS 11/30/2024 Travel 11/27/2024 Telephone [facility] MED & PEDS [address] [place] [address] Lisa Galvan MD Chart Prep 11/26/2024 Telephone [facility] MEDICINE [address] [place] [phone] Lisa Galvan MD Nurse Triage 11/04/2024 Refill [facility] MED & PEDS [address] [place] [address] Lisa Galvan MD from Last 3 Months [...] Upcoming Encounters Date Type Department Care Team ([facility] st Contact Info) Description 01/07/2025 2:15 PM EDT Office Visit [facility] CHC MED & PEDS [address] [place] [address] Lisa Galvan MD [address] [place] [address] Health Maintenance Due Date Last Done Comments [...] 9:40 AM EDT) Creatinine, Urine 78.76 mg/dL [facility] Microalbumin Urine 11.0 mg/L [facility] Microalbum Creatinine Ratio Ur 13.9 <30 ug/mg cr [facility] Comment:Albumin/Creatinine R atio Reference Ranges: Normal: < 30 ug/mg creatinine Microalbuminuria: 30 - 300 ug/mg creatinineClinical Albuminuria: > 300 ug/mg creatinine Urine (Urine, Random) 11/30/2024 9:40 AM EDT 11/30/2024 2:18 PM EDT Lisa Galvan MD LAB URINE ORDERABLES Final Re sult Performing Organization Address City/[facility]/ZIP Co de Phone Number [facility] [address] [place] [phone] * TSH W/Reflex to FT4 (11/30/2024 9:37 AM EDT) TSH reflex Free T4 1.29 0.32 - 4.0 uIU/mL [facility] Blood Venous blood specimen / Unknown 11/30/2024 9:37 AM EDT 11/30/2024 2:19 PM EDT us Lisa Galvan MD LAB BLOOD ORDERABLES Final Re sult Performing Organization Address City/[facility]/ZIP Co de Phone Number [facility] [address] [place] [phone] * CBC auto differential (11/30/2024 9:37 AM EDT) White Blood Count 6.8 4.8 - 10.8 X10*3/uL [facility] Red Blood Count 4.80 4.20 - 5.50 X10*6/uL [facility] Hemoglobin 13.4 12.0 - 16.0 g/dl [facility] Hematocrit 41.3 37.0 - 47.0 % [facility] Mean Corpuscular Volume 86.0 80.0 - 98.0 fL [facility] Mean Corpuscular Hemoglobin 27.9 27.0 - 33.0 pg [facility] Mean Corpuscular HGB Conc 32.4 31.0 - 35.0 g/dl [facility] Red Cell Distribution Width 13.2 11.0 - 16.0 % [facility] Platelet Count 293 160 - 400 X10*3/uL [facility] Mean Platelet Volume 12.0 9.4 - 12.3 fL [facility] Neutrophils Percent Auto 64.8 45 - 73 % [facility] Imm Gran Pct Auto 0.3 0.0 - 0.4 % [facility] Lymphocytes Percent Auto 24.7 20 - 40 % [facility] Monocytes Percent Auto 7.4 2 - 11 % [facility] Eosinophils Percent Auto 2.4 0 - 4 % [facility] Basophils Percent Auto 0.4 0 - 2 % [facility] NRBC Pct Auto 0.0 0.0 - 0.2 /100WBC [facility] Neutrophils Absolute Auto 4.4 2.0 - 8.3 x10*3/uL [facility] Imm Gran Abs Auto 0.02 0.00 - 0.03 X10*3/uL [facility] Lymphocytes Absolute Auto 1.7 1.2 - 4.9 X10*3/uL [facility] Monocytes Absolute Auto 0.5 0.1 - 1.2 X10*3/uL [facility] Eosinophils Absolute Auto 0.2 0.0 - 0.4 X10*3/uL [facility] Basophils Absolute Auto 0.0 0.0 - 0.2 X10*3/uL [facility] NRBC Abs Auto 0.000 0.0 - 0.012 X10*3/uL [facility] Blood Venous blood specimen / Unknown 11/30/2024 9:37 AM EDT 11/30/2024 2:19 PM EDT Lisa Galvan MD LAB BLOOD ORDERABLES Final Re sult Performing Organization Address City/[facility] Co de Phone Number [facility] [address] [place] [address] [phone] * (ABNORMAL) Hepatic Function Panel (11/30/2024 9:37 AM EDT) Bilirubin, Total 0.4 0.0 - 1.0 mg/dL [facility] Bilirubin, Direct 0.1 0.0 - 0.5 mg/dL [facility] Aspartate Amino Transferase 16 5 - 31 U/L [facility] Alanine Aminotransferase 25 0 - 31 U/L [facility] Total Protein 7.7 6.5 - 8.0 g/dL [facility] Albumin Level 4.2 3.5 - 5.0 g/dL [facility] Alkaline Phosphatase 147(H) 39 - 117 U/L [facility] Blood Venous blood specimen / Unknown 11/30/2024 9:37 AM EDT 11/30/2024 2:19 PM EDT Lisa Galvan MD LAB BLOOD ORDERABLES Final Re sult Performing Organization Address [facility]/ZIP Co de Phone Number [facility] [address] [place] [phone] * Lipid Panel, Standard (11/30/2024 9:37 AM EDT) Triglycerides 131 <150 mg/dL [facility] Comment:Desirable Triglyceri de: less than 150 mg/dLBorderline High Triglyceride 150-199 mg/dLHigh Triglyceride: 200-499 mg/dLVery High Triglyceride: greater than or equal to 5OO mg/dL Cholesterol 174 <200 mg/dL [facility] Comment:Desirable Cholestero l: less than 200 mg/dLBorderline High Cholesterol: 200-239 mg/dLHigh Cholesterol: greater than 239 mg/dL LDL Cholesterol Calculated 94 <100 mg/dL [facility] Comment:Desirable LDL: less than 100 mg/dLNear Optimal/Above Optimal LDL: 110- 129 mg/dLBorderline High LDL: 130-159 mg/dLHigh LDL: 160-189 mg/dLVery High LDL: greater than or equal to 190 mg/dL HDL Cholesterol 54 >40 mg/dL [facility] Comment:Desirable HDL: great er than 40 mg/dL Note: This HDL assay may give artificially low results in patients with liver disease. Blood Venous blood specimen / Unknown 11/30/2024 9:37 AM EDT 11/30/2024 2:19 PM EDT Lisa Galvan MD LAB BLOOD ORDERABLES Final Re sult [facility] [address] [place] [address] [phone] * (ABNORMAL) POCT A1C (11/30/2024 9:05 AM EDT) Hemoglobin A1C 7.9(A) 4.0 - 6.0 % QC Media Lot # Comment:[id number] Lot# Expiration Date Comment:07/20/2026 Blood 11/30/2024 9:05 AM EDT us Lisa Galvan MD POINT OF CARE TEST ENTER/EDIT ORDERABLES Final Result * (ABNORMAL) POCT glucose manually resulted (11/30/2024 9:04 AM EDT) Glucose Blood, POC 388(A) 60 - 200 mg/dL QC Media Lot # Comment:[id number] Lot# Expiration Date Comment:03/18/2025 Blood Capillary blood specimen / Unknown 11/30/2024 9:04 AM EDT us Lisa Galvan MD POINT OF CARE TEST ENTER/EDIT ORDERABLES Final Result * BI Mammogram Screening Tomosynthesis Bilateral (03/30/2024 11:30 AM EDT) Anatomical Region Laterality Modality Breast Bilateral Mammography 03/30/2024 11:3 0 AM EDT Narrative 04/22/2024 8:13 AM EDT ? [facility] ? [address] ?[place], [place] [address] ? Mammography Report ? Signed ? Patient: Hernandez,Nixsaly ?MR#: [id number] ?? [id number] ? : 1975 ?Acct:[id number] ? Age/Sex: 48 / F ?ADM Date: 03/30/24 ? Loc: HO.MAMMO ? Attending Dr: Lisa Galvan MD ? Ordering Physician: Lisa Galvan MD ?Results: 1Ne ?? gative ? Date of Service: 03/30/24 ?Follow Up: 1 Year From Orig ?? inal Mammogram ? Procedure(s): MM tomosynthesis screening BI ?? Accession Number(s): [id number] ? cc: Lisa Galvan MD ? EXAMINATION: [...] 0809 ? DD/ 1130 ? TD/TT: ? Concrete Paver: ? Procedure Note Hi, Jorge - 04/22/2024 [facility] [address] [place] [address] [place] [address] Mammography Report Signed Patient: Monie HernandezMR#: [id number] : 1975Acct:[id number] Age/Sex: 48 / FADM Date: 03/30/24 Loc: TOMY Attending Dr: Lisa Galvan MD Ordering Physician: Lisa Galvanesults: 1Ne gative Date of Service: 03/30/24Follow Up: 1 Year From Orig inal Mammogram Procedure(s): MM tomosynthesis screening BI Accession Number(s): [id number] cc: Lisa Galvan MD EXAMINATION: MM SCREENING [...] in OV> 04/22/24 0809 DD/ 1130 TD/TT: Concrete Paver: Lisa Galvan MD IMG BI PROCEDURES Edited Resu lt - Final * Hm Pap Smear (11/12/2018) Pap smear Performed Historical Provider HEALTH MAINTENANCE Final Result from Last 3 Months or Most Recently Relevant to Health Maintenance Insurance [facility] - BCBS [facility] Care Teams Neon Glass Blower Relationship Specialty Start Date End Date Lisa Galvan MD [address] [place] [phone] PCP - General Family Medicine 08/01/12
--- OUTSIDE RECORDS SUMMARY | 2025-01-01 10:30 | XMS_ITS | Encounter Summary ---
Author Organization [employer] Address [address] [facility] 7t [place] [address] Care Team Providers Care Clinical Study Manager Name Role Phone Lisa Galvan MD Primary Care Provider [phone] Reason for Visit * Reason Comments Med Refill Encounter Details Date Type Department Care Team ([facility] Contact Info) Description 08/06/2024 Refill [facility] CHC MED & PEDS [address] [place], [place] [phone] Lisa Galvan MD [address] [place] [address] Social History Tobacco Use Types Packs/Day Years [...] PM EDT Office Visit [facility] MED & PEDS [address] [place] [address] Lisa Galvan MD [address] [place] [address] documented as of this encounter Visit Diagnoses Not on filedocumented in this encounter Care Teams Clinical Study Manager Relationship Specialty Start Date End Date Lisa Galvan MD [address] [place] [address] PCP - General Family Medicine 08/01/12 documented as of this encounter
--- OUTSIDE RECORDS SUMMARY | 2025-01-01 10:30 | XMS_ITS | Encounter Summary ---
Author Organization [employer] [facility] Address [address] [place] [address] [address]t [place] [address] Care Team Providers Care Forwarder Operator Name Role Phone Lisa Galvan MD Primary Care Provider [phone] Reason for Visit * Reason Comments Med Change Request Encounter Details Date Type Department Care Team ([facility] Contact Info) Description 03/05/2023 Refill [facility] CH[facility] MED & PEDS [address] [place], [place] [phone] Lisa Galvan MD [address] [place] [address] Moderate persistent asthma with exacerbation Social History [...] Upcoming Encounters Date Type Department Care Team ([facility] Contact Info) Description 01/07/2025 2:15 PM EDT Office Visit [facility] CH[facility] MED & PEDS [address] [place], [place] [phone] Lisa Galvan MD [address] [place], [place] [phone] documented as of this encounter Visit Diagnoses Diagnosis Moderate persistent asthma with exacerbation Unspecified asthma, with exacerbation documented in this encounter Care Teams Forwarder Operator Relationship Specialty Start Date End Date Lisa Galvan MD [address] [facility] [place] [address] PCP - General Family Medicine 08/01/12 documented as of this encounter
--- OUTSIDE RECORDS SUMMARY | 2025-01-01 10:30 | XMS_ITS | Encounter Summary ---
Author Organization [employer] [facility] Address [address] [place] [address] [address]t [place] [address] Care Team Providers Care Geotechnical Laboratory Technician Name Role Phone Lisa Galvan MD Primary Care Provider [phone] Reason for Visit * Reason Comments Med Refill Encounter Details Date Type Department Care Team ([facility] Contact Info) Description 02/04/2023 Refill [facility] MED & PEDS [address] [place], [place] [phone] Rona Flores MD [address] [place] [address] Social History Tobacco Use Types Packs/Day Years [...] Upcoming Encounters Date Type Department Care Team ([facility] Contact Info) Description 01/07/2025 2:15 PM EDT Office Visit [facility] CH[facility] MED & PEDS [address] [place], [place] [phone] Lisa Galvan MD [address] [place], [place] [phone] documented as of this encounter Visit Diagnoses Not on filedocumented in this encounter Care Teams Geotechnical Laboratory Technician Relationship Specialty Start Date End Date Lisa Galvan MD [address] [place] [phone] PCP - General Family Medicine 08/01/12 documented as of this encounter
--- OUTSIDE RECORDS SUMMARY | 2025-01-01 10:30 | XMS_ITS | Encounter Summary ---
Author Organization [employer] Address [address] [facility] 7t [place] [address] Care Team Providers Care Emissions Inspector Name Role Phone Lisa Galvan MD Primary Care Provider [phone] Reason for Visit * Reason Comments Med Refill Encounter Details Date Type Department Care Team ([facility] Contact Info) Description 11/30/2024 Refill [facility] ADULT DENTAL [address] [place] [address] Lucy Grimm, DDS [address] [place] [address] Social History Tobacco Use Types Packs/Day Years [...] Description 01/07/2025 2:15 PM EDT Office Visit [facility] MED & PEDS [address] [place] [address] Lisa Galvan MD [address] [place] [address] documented as of this encounter Visit Diagnoses Not on filedocumented in this encounter Additional Health Concerns Assessment Noted Time PHQ-9 Depression Total Score: 4 12/01/19 25 9:28 AM EDT documented as of this encounter Care Teams Emissions Inspector Relationship Specialty Start Date End Date Lisa Galvan MD [address] [place] [address] PCP - General Family Medicine 08/01/12 documented as of this encounter
--- OUTSIDE RECORDS SUMMARY | 2025-01-01 10:30 | XMS_ITS | Encounter Summary ---
Author Organization [employer] Address [address] [facility] 7t [place] [address] Care Team Providers Care Revenue Accountant Name Role Phone Lisa Galvan MD Primary Care Provider [phone] Encounter Details Date Type Department Care Team ([facility] st Contact Info) Description 03/06/2023 Telephone [facility] CHC MED & PEDS [address] [place], [place] [phone] Lisa Galvan MD [address] [place] [address] Social History Tobacco Use Types Packs/Day Years [...] Description 01/07/2025 2:15 PM EDT Office Visit [facility] MED & PEDS [address] [place] [address] Lisa Galvan MD [address] [place] [address] documented as of this encounter Visit Diagnoses Not on filedocumented in this encounter Care Teams Revenue Accountant Relationship Specialty Start Date End Date Lisa Galvan MD [address] [place] [address] PCP - General Family Medicine 08/01/12 documented as of this encounter
[2025-01-01 11:21] LABS: Alanine Aminotransferase 25 U/L (0-31); Albumin Level 4.3 g/dL (3.5-5.0); Aspartate Amino Transferase 17 U/L (5-31); Bilirubin Direct 0.1 mg/dL (0.0-0.5); Bilirubin Total 0.3 mg/dL (0.0-1.0); C Reactive Protein 2.22 mg/dL (< or = 0.50); Lipase 35 U/L (8-78); Total Protein 7.4 g/dL (6.5-8.0)
[2025-01-01 11:50] LABS: Ferritin 50 ng/mL (10-250)
[2025-01-01 12:00] LABS: Folate 11.7 ng/mL (> or = 4.0); Vitamin B12 608 pg/mL (200-900)
[2025-01-01 15:00] LABS: H Pylori Breath Test Negative (Negative)
[2025-01-01 19:43] LABS: Alkaline Phosphatase 102 U/L (39-117)
[2025-01-04 23:18] LABS: Transglutaminase IgA <1.0 U/mL
== END ==
LOC: HO.CARD 07:49
PROVIDERS: PCP Pediatrics; Visit Provider Nurse Practitioner Family
DX: R07.9 Chest pain, unspecified (principal); R74.8 Abnormal levels of other serum enzymes; K21.9 Gastro-esophageal reflux disease without esophagitis; R19.7 Diarrhea, unspecified; R10.13 Epigastric pain
CPT/HCPCS: 36415; 80076; 82607; 82652; 82728; 82746; 83013; 83690; 84080; 84446; 84590; 84597; 86140; 86364; 93005

== ENCOUNTER → 2025-01-01 09:54 | Outpatient (BNV) | payer BC, OTHER, SELFPAY | PROVIDERS: PCP Pediatrics; Visit Provider Internal Medicine Cardiovascular Disease | DX: R07.9 Chest pain, unspecified (principal) | CPT/HCPCS: 93010 ==

== ENCOUNTER 2025-01-12 04:24 | Emergency (ER) | payer BC, OTHER, SELFPAY ==
--- NOTE | ~2025-01-12 | CT_ITS ---
CLINICAL HISTORY: RLQ Pain CT abdomen and pelvis with contrast Comparison: None Findings: No consolidation or effusion. Unremarkable gallbladder and solid organs. Punctate nonobstructing stone in the lower pole of the right kidney. No ureteral stones or hydronephrosis. No bowel obstruction, pneumoperitoneum, or pneumatosis. Pelvic contents unremarkable. Normal appendix. No adenopathy or fluid collections. Nonaneurysmal aorta No acute fracture. IMPRESSION: No acute findings to explain right lower quadrant pain. No bowel obstruction, obstructive uropathy or biliary obstruction. Normal appendix. punctate nonobstructing right lower pole stone. This document has been electronically signed by: Rayne Trinh MD on 01/12/2025 07:45:16
[2025-01-12 04:28] VITALS: BP 137/78; PULSE 75; RESP 18; TEMP 36.3; O2SAT 99; BMI 41.0
--- NOTE | 2025-01-12 04:41 | ED.ABDPAIN ---
HPI - Abdominal Pain General Chief Complaint: Abdominal Pain Stated Complaint: R Side and Abd Pain Time Seen by Provider: 01/12/25 04:41 Source: patient and old records reviewed Mode of arrival: ambulatory Limitations: no limitations History of Present Illness ED Provider: FAIZAN HUERTAS narrative: 49 yo female with PMH of GERD, asthma, hypothyroidism who presents with c/o RLQ Pain starting yesterday with some nausea and diarrhea - she took motrin yesterday but no improvement. She feels she has chills. She notes the pain has worsened and it hurts to walk and lay down. The pain wraps around no to her back. She denies urinary symptoms. No travel/abx use/sick contacts. MD elicited complaint: abdominal pain Pertinent past history: none Onset (ago): day(s) (yesterday ) Pain Consistency: constant Location: RLQ Quality: stabbing and aching Radiation: R flank Migration to: R flank Exacerbating factors: movement Relieving factors: nothing Associated symptoms: nausea, vomiting, diarrhea and chills Related Data Home Medications ?Medication ?Instructions ?Recorded ?Confirmed albuterol sulfate 2.5 mg/3 mL mg inhalation Q4H PRN wheezing 11/20/21 01/01/25 (0.083 %) solution for nebulization blood sugar diagnostic (FreeStyle #10 ea 11/20/21 01/01/25 Lite Strips) blood-glucose meter (FreeStyle #1 ea 11/20/21 01/01/25 [place] Lite kit) cholecalciferol (vitamin D3) 50 50 mcg PO BID 11/20/21 01/01/25 mcg (2,000 unit) tablet dicyclomine 20 mg tablet 20 mg PO TID 11/20/21 01/01/25 levothyroxine 100 mcg tablet 100 mcg PO DAILY 11/20/21 01/01/25 semaglutide 1 mg/dose (4 mg/3 mL) 1 mg subcut QWEEK 01/01/25 01/01/25 subcutaneous pen injector (Ozempic) Previous Rx's ?Medication ?Instructions ?Recorded bisacodyl 5 mg tablet,delayed 15 mg (3 x 5 mg) PO ONCE 01/01/25 release (Dulcolax (bisacodyl)) colonoscopy prep 1 day #3 tabs famotidine 20 mg tablet 20 mg PO DAILY PRN GERD #90 tabs 01/01/25 polyethylene glycol 3350 17 238 g PO ONCE 1 day #238 grams 01/01/25 gram/dose oral powder (Miralax) Allergies Allergy/AdvReac Type Severity Reaction Status Date / Time No Known Allergies Allergy Verified 01/12/25 04:30 Review of Systems Review of Systems Constitutional : No Weight loss, No Fever, pos Chills ENT/Mouth : No sore throat, No Rhinorrhea Eyes: No Swelling, No Redness Cardiovascular : No Chest Pain, No SOB, NoEdema Respiratory : No Cough, No Sputum, No Wheezing Gastrointestinal : Positive Nausea, Positive Vomiting, positive Diarrhea, positive abdominal Pain, No Hematochezia, No Melena Genitourinary : No Dysuria, No Urinary Frequency, No Hematuria, No Urgency Musculoskeletal : No joint pain, No Myalgias, No Joint Swelling Skin : No Skin Lesions, No rash Neuro : No Weakness, No Numbness, No Dizziness, No Headache All other systems reviewed and are negative. [facility] Past Medical History Attestation statement: The following information was validated with the patient. Source: old records reviewed Medical History Abdominal pain Diarrhea Chest pain Elevated alkaline phosphatase level Hypothyroid Diabetes type 2, controlled Surgical History History of esophagogastroduodenoscopy (EGD) History of colposcopy Tubal ligation status Social History Social History Household Members: Spouse Alcohol intake: never Patient Tobacco Use Status: Never used Tobacco Smoked in Last 30 Days: No Advance Directives: No Advance Directives Information Provided: Yes Do you have a plan to hurt others: No Plan Physical Exam ED Vital Signs: Vital Signs - 24 hr 01/12/25 04:28 Temperature 97.3 F Pulse Rate 75 Respiratory Rate 18 Blood Pressure 137/78 Pulse Oximetry 99 Oxygen Delivery Method Room Air BMI result Body Mass Index 41.0 Appearance: Alert. Oriented X3. No acute distress. Eyes: Pupils equal, round and reactive to light. ENT: Pharynx normal. Neck: Normal inspection. Neck supple. CVS: Normal heart rate and rhythm. Pulses normal. Respiratory: No respiratory distress. Breath sounds normal. Abdomen: Soft and moderate RLQ ttp no rebound or guarding Skin: Skin warm and dry. Normal skin color. Normal skin turgor. Extremities: No lower extremity edema. Neuro: Oriented X 3. No motor deficit. No sensory deficit. CN2-12 intact Course Course Course Narrative: signed out to Dr. Benitez pending CT scan Reevaluation(s) Reevaluation #1: Dr Benitez Patient was signed out to wy 07:[address] scan of the abdomen and pelvis. Labs were normal. CT resulted at this time not acute disease normal appendix. I re-examined the patient she is clinically stable abdomen is soft nontender anticipate discharge Time: 08:03 Medical Decision Making Medical Decision Making [facility] Narrative: 49 yo female with PMH of GERD, asthma, hypothyroidism who presents with c/o Differential Diagnosis Differential Diagnoses: The differential diagnosis associated with the presentation includes renal colic, appendix pathology, constipation, hernia Admission/Observation Consideration of admission/observation: Escalation of care including admission/observation considered Lab Data [facility] Lab Attestation statement: I reviewed the patient's lab results. 01/12/25 04:39 01/12/25 04:39 Labs: Lab Results 01/12/25 01/12/25 Range/Units 04:39 06:35 WBC 9.7 (4.8-10.8) X10*3/uL RBC 4.85 (4.20-5.50) X10*6/uL Hgb 13.6 (12.0-16.0) g/dl Hct 42.0 (37.0-47.0) % MCV 86.6 (80.0-98.0) fL MCH 28.0 (27.0-33.0) pg MCHC 32.4 (31.0-35.0) g/dl RDW 13.5 (11.0-16.0) % Plt Count 339 (160-400) X10*3/uL MPV 11.0 (9.4-12.3) fL Immature Gran % (Auto) 0.3 (0.0-0.4) % Neut % (Auto) 62.9 (45-73) % Lymph % (Auto) 27.6 (20-40) % Mcleod % (Auto) 6.8 (2-11) % Eos % (Auto) 2.1 (0-4) % Baso % (Auto) 0.3 (0-2) % Lymph # (Auto) 2.7 (1.2-4.9) X10*3/uL Mcleod # (Auto) 0.7 (0.1-1.2) X10*3/uL Eos # (Auto) 0.2 (0.0-0.4) X10*3/uL Baso # (Auto) 0.0 (0.0-0.2) X10*3/uL Abs Immat Gran (auto) 0.03 (0.00-0.03) X10*3/uL Absolute Neuts (auto) 6.1 (2.0-8.3) x10*3/uL Absolute Nucleated RBC 0.000 (0.0-0.012) X10*3/uL Nucleated RBC % (auto) 0.0 (0.0-0.2) /100WBC Sodium 139 (135-145) mmol/L Potassium 4.8 (3.3-5.1) mmol/L Chloride 105 (96-108) mmol/L Carbon Dioxide 23 (22-29) mmol/L Anion Gap 16 (12-20) BUN 12 (9-16) mg/dL Creatinine 0.93 (0.5-1.4) mg/dL Estim Creat Clear Calc 101.9 Estimated GFR > 60 Random Glucose 126 H (60-115) mg/dL Calcium 9.1 (8.4-10.2) mg/dL Total Bilirubin 0.3 (0.0-1.0) mg/dL AST 42 H (5-31) U/L ALT 23 (0-31) U/L Alkaline Phosphatase 111 (39-117) U/L Total Protein 7.6 (6.5-8.0) g/dL Albumin 3.9 (3.5-5.0) g/dL Lipase 22 (8-78) U/L Beta HCG, Quant < 2 mIU/mL Urine Color Yellow Urine Appearance Clear Urine pH 6.5 (5.0-9.0) Ur Specific Barnes >= 1.030 H (1.005-1.025) Urine Protein Negative (Neg-Trace) mg/dL Urine Glucose (UA) Negative (Negative) mg/dL Urine Ketones Negative (Negative) mg/dL Urine Blood Negative (Negative) Urine Nitrite Negative (Negative) Ur Leukocyte Esterase Small (1+) H (Negative) Urine RBC 0-2 (0-2) /HPF Urine WBC 6-10 H (0-5) /HPF Ur Squamous Epith Cells 3-5 (0-2) /HPF Urine Bacteria None Seen (None Seen) Hyaline Casts 0-2 (0-2) /LPF Influenza Type A (PCR) NEGATIVE (Negative) Influenza Type B (PCR) NEGATIVE (Negative) RSV RNA Qual (PCR) NEGATIVE (Negative) SARS-CoV-2 RNA (RT-PCR) NEGATIVE (Negative) Independent Interpretation I performed an independent interpretation of an: CT Scan External Record Review External record reviewed: Outpatient record Medications Administered Discontinued Medications Generic Name Dose Route Start Last Admin Trade Name Freq PRN Reason Stop Dose Admin Lactated Ringer's 1,000 mls @ 999 mls/hr 01/12/25 04:47 01/12/25 06:02 Lr IV 01/12/25 05:47 Infused .Q1H1M ONE Infusion Iohexol 100 ml 01/12/25 05:38 01/12/25 05:38 Iohexol 350 Mg/Ml 100 Ml Infus..Btl IV 01/12/25 05:39 100 ml ONCE ONE Administration Ketorolac Tromethamine 15 mg 01/12/25 04:47 01/12/25 04:58 Ketorolac Tromethamine 15 Mg/Ml Vial IVPUSH 01/12/25 04:48 15 mg ONCE ONE Administration Ondansetron HCl 4 mg 01/12/25 04:47 01/12/25 04:58 Ondansetron Hcl 4 Mg/2 Ml Vial IVPUSH 01/12/25 04:48 4 mg ONCE ONE Administration Discharge Plan Discharge Clinical Impression: Abdominal pain Qualifiers: Abdominal location: right lower quadrant Qualified Code(s): R10.31 - Right lower quadrant pain Patient Disposition: Home, Self-Care Instructions: Abdominal Pain (ED) Additional Instructions: Clear liquid diet for 24 hour return to the emergency room if you worse vomiting Prescriptions: No Action dicyclomine 20 mg tablet 20 mg PO TID levothyroxine 100 mcg tablet 100 mcg PO DAILY albuterol sulfate 2.5 mg /3 mL (0.083 %) solution for nebulization inhalation Q4H PRN (Reason: wheezing) (DME) FreeStyle Lite Strips Strip See Rx Instructions Not Applicable TID Qty: 10 Rx Instructions: As directed cholecalciferol (vitamin D3) 50 mcg (2,000 unit) tablet 50 mcg PO BID (DME) blood-glucose meter [FreeStyle [place] Lite] Kit See Rx Instructions Not Applicable TID Qty: 1 Rx Instructions: As directed Ozempic 1 mg/dose (4 mg/3 mL) pen injector 1 mg subcut QWEEK famotidine 20 mg tablet 20 mg PO DAILY PRN (Reason: GERD) Qty: 90 1RF Rx Instructions: Take one tablet daily as needed for acid reflux polyethylene glycol 3350 [Miralax] 17 gram/dose powder 238 g PO ONCE 1 Days Qty: 238 0RF Rx Instructions: Per colonoscopy prep instructions bisacodyl [Dulcolax (bisacodyl)] 5 mg tablet,delayed release (DR/EC) 15 mg PO ONCE 1 Days Qty: 3 0RF Rx Instructions: Take 3 tablets by mouth at 12:00pm the day before your procedure. Referrals: Lisa Galvan MD [Primary Care Provider] - 2 days Stand Alone Forms: Work/School Release Interventions: ED Discharge Assessment Last Done: 01/12/25 08:18 Discharge Date/Time: 01/12/25 08:19 Print Language: Bulgarian
[2025-01-12 04:44] LABS: MANUAL DIFF FLAG NO
[2025-01-12 04:45] LABS: Basophils Percent Auto 0.3 % (0-2); Eosinophils Absolute Auto 0.2 X10*3/uL (0.0-0.4); Eosinophils Percent Auto 2.1 % (0-4); Hemoglobin 13.6 g/dl (12.0-16.0); Imm Gran Abs Auto 0.03 X10*3/uL (0.00-0.03); Imm Gran Pct Auto 0.3 % (0.0-0.4); Lymphocytes Absolute Auto 2.7 X10*3/uL (1.2-4.9); Lymphocytes Percent Auto 27.6 % (20-40); Mean Corpuscular HGB Conc 32.4 g/dl (31.0-35.0); Mean Corpuscular Volume 86.6 fL (80.0-98.0); Monocytes Absolute Auto 0.7 X10*3/uL (0.1-1.2); Monocytes Percent Auto 6.8 % (2-11); Neutrophils Absolute Auto 6.1 x10*3/uL (2.0-8.3); Neutrophils Percent Auto 62.9 % (45-73); Platelet Count 339 X10*3/uL (160-400); Red Blood Count 4.85 X10*6/uL (4.20-5.50); Red Cell Distribution Width 13.5 % (11.0-16.0); White Blood Count 9.7 X10*3/uL (4.8-10.8)
[2025-01-12] MEDS: Lactated Ringers 1,000 ML 999 ML IV (04:58)
[2025-01-12] MEDS: ondansetron HCL 4 MG/2 ML VIAL IVPUSH (04:58)
[2025-01-12] MEDS: Ketorolac Tromethamine 15 MG/ML VIAL IVPUSH (04:58)
[2025-01-12 05:09] LABS: Alanine Aminotransferase 23 U/L (0-31); Albumin Level 3.9 g/dL (3.5-5.0); Alkaline Phosphatase 111 U/L (39-117); Anion Gap 16 (12-20); Aspartate Amino Transferase 42 U/L (5-31); Bilirubin Total 0.3 mg/dL (0.0-1.0); Blood Urea Nitrogen 12 mg/dL (9-16); Calcium 9.1 mg/dL (8.4-10.2); Carbon Dioxide 23 mmol/L (22-29); Chloride 105 mmol/L (96-108); Creatinine Clr Calc Pharmacy 101.9; Estimated Glomerular Filt Rate > 60; Glucose Random 126 mg/dL (60-115); HCG Quantitative < 2 mIU/mL; Lipase 22 U/L (8-78); Potassium 4.8 mmol/L (3.3-5.1); Sodium 139 mmol/L (135-145); Total Protein 7.6 g/dL (6.5-8.0)
[2025-01-12 05:20] LABS: Influenza A PCR NEGATIVE (Negative); Influenza B PCR NEGATIVE (Negative); Resp Syncy Virus RNA Qual PCR NEGATIVE (Negative); SARS COV2 PCR INHOUSE NEGATIVE (Negative)
[2025-01-12] MEDS: iohexoL 350 MG/ML 100 ML INFUS..BTL IV (05:38)
[2025-01-12 07:00] LABS: Appearance Urine Clear; Color Urine Yellow; Glucose Urine UA Negative (Negative); Leukocyte Esterase Urine Small (1+) (Negative); Nitrite Urine Negative (Negative); PH 6.5 (5.0-9.0); Specific Gravity - Urine >= 1.030 (1.005-1.025); UMIC TRIGGER UACC YES; Urine Blood Negative (Negative); Urine Ketones Negative (Negative); Urine Protein Negative (Neg-Trace)
[2025-01-12 07:05] LABS: Bacteria Urine None Seen (None Seen); Hyaline Casts Urine 0-2 /LPF (0-2); RBC Urine 0-2 /HPF (0-2); UACC Culture Trigger YES
[2025-01-12 08:14] VITALS: BP 138/82; PULSE 78; RESP 16; TEMP 36.6; O2SAT 97
[2025-01-12 08:18] VITALS: BP 138/82; PULSE 78; RESP 16; TEMP 36.7; O2SAT 97
== END 2025-01-12 08:19 | disposition home or self-care (01) ==
PROVIDERS: Emergency Medicine; Emergency Provider Emergency Medicine; PCP Pediatrics
DX: R10.31 Right lower quadrant pain (principal); R11.0 Nausea; R19.7 Diarrhea, unspecified; E11.9 Type 2 diabetes mellitus without complications; E03.9 Hypothyroidism, unspecified; Z79.899 Other long term (current) drug therapy; Z03.818 Encounter for observation for suspected exposure to other biological agents ruled out
CPT/HCPCS: 0241U; 74177; 80053; 81001; 81003; 83690; 84702; 85025; 87086; 96361; 96374; 96375; 99284; J1885; J2405; J7120; Q9967

== ENCOUNTER → 2025-01-12 04:47 | Outpatient (BNV) | payer BC, OTHER, SELFPAY | PROVIDERS: Emergency Provider Emergency Medicine; PCP Pediatrics; Visit Provider Radiology Diagnostic Radiology | DX: R10.31 Right lower quadrant pain (principal) | CPT/HCPCS: 74177 ==

== ENCOUNTER 2025-01-28 07:43 | Outpatient (REF) | payer BC, OTHER, SELFPAY ==
--- OUTSIDE RECORDS SUMMARY | 2025-01-28 07:45 | XMS_ITS | Clinical Summary ---
Author Organization [facility] ity Address [address] [place] [address] Care Team Providers Care Data Management Engineer Name Role Phone Lisa Galvan MD Primary Care Provider [phone] Social History Tobacco Use Types Packs/Day Years [...] age to complete this topic Care Teams Data Management Engineer Relationship Specialty Start Date End Date Lisa Galvan MD [address] [place] [id number] PCP - General 03/16/21
--- OUTSIDE RECORDS SUMMARY | 2025-01-28 07:45 | XMS_ITS | Encounter Summary ---
Author Organization [employer] Address [address] [facility] [address] [place] [address] Care Team Providers Care Spectrographer Name Role Phone Lisa Galvan MD Primary Care Provider [phone] Reason for Visit * Reason Comments Med Refill Encounter Details Date Type Department Care Team ([facility] st Contact Info) Description 02/04/2023 Refill [facility] [address] [place], [place] [phone] Rona Flores MD [address] [place], [place] [phone] Social History Tobacco Use Types Packs/Day Years [...] as of this encounter Plan of Treatment Not on file documented as of this encounter Visit Diagnoses Not on filedocumented in this encounter Care Teams Spectrographer Relationship Specialty Start Date End Date Lisa Galvan MD [address] [place], [place] [phone] PCP - General Family Medicine 08/01/12 documented as of this encounter
--- OUTSIDE RECORDS SUMMARY | 2025-01-28 07:45 | XMS_ITS | Encounter Summary ---
Author Organization [employer] Address [address] [facility] [address] [place] [address] Care Team Providers Care Incubator Machine Operator Name Role Phone Lisa Galvan MD Primary Care Provider [phone] Reason for Visit * Reason Comments Med Change Request Encounter Details Date Type Department Care Team ([facility] Contact Info) Description 03/05/2023 Refill [facility] [address] [place], [place] [phone] Lisa Galvan MD [address] [place] [address] Moderate persistent asthma with exacerbation Social History [...] exacerbation documented in this encounter Care Teams Incubator Machine Operator Relationship Specialty Start Date End Date Lisa Galvan MD [address] [place] [address] PCP - General Family Medicine 08/01/12 documented as of this encounter
--- OUTSIDE RECORDS SUMMARY | 2025-01-28 07:45 | XMS_ITS | Encounter Summary ---
Author Organization [employer] Address [address] [facility] [address] [place] [address] Care Team Providers Care Program Scheduler Name Role Phone Lisa Galvan MD Primary Care Provider [phone] Reason for Visit * Reason Comments Med Refill Encounter Details Date Type Department Care Team ([facility] Contact Info) Description 05/23/2024 Refill [facility] MED [facility] PEDS [address] [place], [place] [phone] Lisa Galvan MD [address] [place] [address] Irritable bowel syndrome with diarrhea Social History [...] syndrome documented in this encounter Care Teams Program Scheduler Relationship Specialty Start Date End Date Lisa Galvan MD [address] [place] [address] PCP - General Family Medicine 08/01/12 documented as of this encounter
--- OUTSIDE RECORDS SUMMARY | 2025-01-28 07:45 | XMS_ITS | Clinical Summary ---
Author Organization [employer] Address [address] [place] [address] Care Team Providers Care Senior Maintenance Technician Name Role Phone Lisa Galvan MD Primary Care Provider [phone] Allergies No known active allergies Medications Nebulizers [...] morning and at bedtime. 10.6 g 2 12/09/2 022 Active Albuterol Sulfate 108 (90 Base) MCG/ACT aerosol powderIndicatio ns:Moderate persistent asthma with exacerbation INHALE 1 PUFF every 6 hours prn wheezing 8.5 each 3 023 Active Additional Information Patient not taking.Reported on 02/14/2024 albuterol 108 (90 Base) MCG/ACT inhaler Inhale 2 puffs every 6 (six) hours if needed for wheezing. 18 g 2 023 Active Continuous Blood Gluc Student Services Counselor (BBOXXStyle Giacomo reader) device Inject under the skin continuously. 1 each 023 Active Continuous Blood Gluc Sensor (FreeStyle Giacomo 2 Sensor) [facility] DIRECTED 1 each 023 Active albuterol (2.5 MG/3ML) 0.083% nebulizer solution Take 3 mL by nebulization every 4 (four) hours. 75 mL 024 Active ibuprofen 800 MG tablet Take 1 tablet (800 mg) by mouth 3 times daily. 90 tablet 1 025 Active dicyclomine (Bentyl) 20 MG tabletIndicatio ns:Irritable bowel syndrome with diarrhea TAKE 1 TABLET BY MOUTH THREE TIMES A DAY 270 tablet 1 025 Active levothyroxine (Synthroid, Levoxyl) 100 MCG tablet Take 1 tablet (100 mcg) by mouth Once per day. 90 tablet 1 025 Active levothyroxine (Synthroid, Levoxyl) 100 MCG tablet TAKE 1 TABLET BY MOUTH EVERY DAY 90 tablet 025 2024 Discontinued(R eorder (will not trigger notification to Pharmacy)) semaglutide (Ozempic, 1 MG/DOSE,) 4 MG/3ML solution pen-injectorInd ications:Diabet es mellitus without complication (CMS/HCC),Obesi ty with body mass index 30 or greater Inject 1 mg under the skin 1 (one) time per week. 1 each 025 2024 Discontinued(I neffective) Active Problems Problem Noted Date Diagnosed Date [...] Encounters Date Type Department Care Team Description 01/12/2025 Orders Only [facility] External Provider, [facility] 01/07/2025 2:15 PM EDT Office Visit [facility] [address] [place] [address] Lisa Galvan MD Diabetes mellitus without complication (CMS/HCC) (Primary Dx); Routine general medical examination at a health care facility; Obesity with body mass index 30 or greater; Acquired hypothyroidism; Varicose veins of both lower extremities with inflammation; Colon cancer screening 01/07/2025 Travel 12/28/2024 Patient Outreach [facility] [address] [place] [address] Lisa Galvan MD Pre-visit Planning ([place] screening completed on 11/30/24) 12/09/2024 Refill [facility] [address] [place] [address] Lisa Galvan MD Irritable bowel syndrome with diarrhea 11/30/2024 9:00 AM EDT Office Visit [facility] [address] [place] [address] Lisa Galvan MD Acquired hypothyroidism (Primary Dx); Diabetes mellitus without complication (CMS/HCC); Obesity with body mass index 30 or greater; Colon cancer screening; Family history of colon cancer in father; Symptomatic varicose veins of both lower extremities; Dietary counseling; Exercise counseling 11/30/2024 Refill [facility] [address] [place] [address] Lucy Grimm DDS 11/30/2024 Travel 11/27/2024 Telephone [facility] [address] [place] [address] Lisa Galvan MD Chart Prep 11/26/2024 Telephone [facility] [address] [place] [address] Lisa Galvan MD Nurse Triage 11/04/2024 Refill [facility] [address], [place] [phone] Lisa Galvan MD from Last 3 Months Immunizations Immunization Administration Dates Next Due Hep B, adult [...] Pressure 140/85 11/30/2024 10:18 AM EDT Pulse 84 01/07/2025 2:21 PM EDT Temperature 36.4 ??C (97.6 ??F) 01/07/2025 2:21 PM ED T Respiratory Rate 20 01/07/2025 2:21 PM EDT Oxygen Saturation 99% 11/30/2024 9:02 AM EDT Inhaled Oxygen Concentration - - Weight 122 kg (270 lb) 01/07/2025 2:21 PM EDT Height 158.4 cm (5' 2.38 ) 01/07/2025 2:21 PM ED T Body Mass Index 48.78 01/07/2025 2:21 PM EDT Plan of Treatment Health Maintenance Due Date [...] Procedure Name Priority Date/Time Associated Diagnosis Comments CT ABDOMEN PELVIS W CONTRAST Routine 01/12/2025 7:45 AM EDT URINALYSIS, COMPLETE, WITH REFLEX TO CULTURE Routine 01/12/2025 6:35 AM EDT HCG, TOTAL, QN Routine 01/12/2025 4:39 AM EDT LIPASE Routine 01/12/2025 4:39 AM EDT COMPREHENSIVE METABOLIC PANEL Routine 01/12/2025 4:39 AM EDT CBC WITH AUTO DIFFERENTIAL Routine 01/12/2025 4:39 AM EDT SARS COV2/INFLUENZA A/B AND RSV RNA QL NAAT Routine 01/12/2025 4:39 AM EDT CULTURE, URINE, ROUTINE Routine 01/13/20 12:00 AM EDT POCT GLUCOSE Routine 01/07/2025 2:45 PM EDT Diabetes mellitus without complication (CMS/HCC) VITAMIN D 1,25 DIHYDROXY Routine 025 10:22 AM EDT ALKALINE PHOSPHATASE, ISOENZYMES Routine 01/01/2025 10:22 AM EDT VITAMIN K1 Routine 01/01/2025 10:22 AM EDT VITAMIN E (TOCOPHEROL) Routine 10:22 AM EDT VITAMIN A Routine 01/01/2025 10:22 AM EDT TISSUE TRANSGLUTAMINASE AB, IGA Routine 01/01/2025 10:22 AM EDT VITAMIN B12/FOLATE, SERUM PANEL Routine 01/01/2025 10:22 AM EDT FERRITIN Routine 01/01/2025 10:22 AM EDT LIPASE Routine 01/01/2025 10:22 AM EDT C-REACTIVE PROTEIN Routine 01/01/2025 10 :22 AM EDT HEPATIC FUNCTION PANEL Routine 10:22 AM EDT HELICOBACTER PYLORI, UREA BREATH TEST Routine 01/01/2025 9:30 AM EDT ALBUMIN, RANDOM URINE W/CREATININE Routine 11/30/2024 9:40 AM EDT Diabetes mellitus without complication (CMS/HCC) Acquired hypothyroidism Obesity with body mass index 30 or greater HEPATIC FUNCTION PANEL Routine 9:37 AM EDT Diabetes mellitus without complication [...] Recently Relevant to Health Maintenance Results * CT Abdomen Pelvis w/ Contrast (01/12/2025 7:45 AM EDT) Anatomical Region Laterality Modality Body, Pelvis, Abdomen Computed T omography 01/12/2025 7:45 AM EDT Narrative 01/12/2025 7:46 AM EDT ? [facility] ?[address] ?[place] [address] ? CT Scan Report ? Signed ? Patient: Hernandez,Nixsaly ?MR#: [id number] ?? [id number] ? : 1975 ?Acct:[id number] ? Age/Sex: 49 / F ?ADM Date: 04/29/25 ? Loc: HO.ED ? Attending Dr: ? Ordering Physician: Maylin Vergara DO ?? Date of Service: 01/12/25 ?? Procedure(s): CT abdomen pelvis w IV con ?? Accession Number(s): [id number] ? cc: Lisa Galvan MD; Maylin Vergara DO ? Report Number: ?? [id number]: Total DLP = 1032.00 mGy-cm ? CLINICAL HISTORY: RLQ Pain ? CT abdomen and pelvis with contrast ? Comparison: None ? Findings: ?? No consolidation or effusion. ? Unremarkable gallbladder and solid organs. Punctate nonobstructing stone ?? in the lower pole of the right kidney. No ureteral stones or ?? hydronephrosis. ?? No bowel obstruction, pneumoperitoneum, or pneumatosis. ? Pelvic contents unremarkable. Normal appendix. ?? No adenopathy or fluid collections. Nonaneurysmal aorta ?? No acute fracture. ? IMPRESSION: ?? No acute findings to explain right lower quadrant pain. No bowel ?? obstruction, obstructive uropathy or biliary obstruction. Normal appendix. ?? punctate nonobstructing right lower pole stone. ? This document has been electronically signed by: Rayne Trinh MD on ?? 01/12/2025 07:45:16 ? Dictated By: ?Rayne Trinh MD ? Signed By: ?<Electronically signed by Rayne Trinh MD in OV> ?01/12/2546 ? DD/ 4 ? TD/TT: 01/12/25744 ? Service Station Manager: ? Procedure Note Jorge Do - 01/12/[address] [place] [address] [address] Scan Report Signed Patient: Monie HernandezMR#: [id number] : 1975Acct:[id number] Age/Sex: 49 / FADM Date: 01/12/25 Loc: HO.ED Attending Dr: Ordering Physician: Maylin Vergara DO Date of Service: 01/12/25 Procedure(s): CT abdomen pelvis w IV con Accession Number(s): [id number] cc: Lisa Galvan MD; Maylin Vergara DO Report Number: [id number]: Total DLP = 1032.00 mGy-cm CLINICAL HISTORY: RLQ Pain CT abdomen and pelvis with contrast Comparison: None Findings: No consolidation or effusion. Unremarkable gallbladder and solid organs. Punctate nonobstructing stone in the lower pole of the right kidney. No ureteral stones or hydronephrosis. No bowel obstruction, pneumoperitoneum, or pneumatosis. Pelvic contents unremarkable. Normal appendix. No adenopathy or fluid collections. Nonaneurysmal aorta No acute fracture. IMPRESSION: No acute findings to explain right lower quadrant pain. No bowel obstruction, obstructive uropathy or biliary obstruction. Normal appendix. punctate nonobstructing right lower pole stone. This document has been electronically signed by: Rayne Trinh MD on 01/12/2025 07:45:16 Dictated By: Rayne Trinh MD Signed By: <Electronically signed by Rayne Trinh MD in OV> 01/12/25 0746 DD/ TD/TT: 01/12/2545 Service Station Manager: [facility] External Provider IMG CT PROCEDURES Final Result * (ABNORMAL) Urinalysis, Complete, with Reflex to Culture (01/12/2025 6:35 AM EDT) Color Urine Yellow [facility] Appearance Urine Clear [facility] PH 6.5 5.0 - 9.0 [facility] Glucose Urine UA Negative Negative mg/dL [facility] Urine Blood Negative Negative [facility] Specific [place] - Urine >=1.030(H) 1.005 - 1.025 [facility] Urine Protein Negative Neg-Trace mg/dL [facility] Urine Ketones Negative Negative mg/dL [facility] Nitrite Urine Negative Negative [facility] Leukocyte Esterase Urine Small (1+)(A) Negative [facility] RBC Urine 0-2 0 - 2 /HPF [facility] Urine WBC 6-10(A) 0 - 5 /HPF [facility] Urine Squamous Epithelial Cell 3-5 0 - 2 /HPF [facility] Urine Bacteria None Seen None Seen [facility] Hyaline Casts, Urine 0-2 0 - 2 /LPF [facility] 01/12/2025 6:35 AM EDT 01/12/2025 6:45 AM EDT Narrative [facility] - 01/12/2025 7:06 AM EDT [id number], Clean Catch Generic External Data Provider LAB URINE ORDERAB LES Final Result Performing Organization Address [facility] Co de Phone Number [facility] [address] [place] [phone] * SARS-CoV-2 RNA, Influenza A/B, and RSV RNA, Ql NAAT (01/12/2025 4:39 AM EDT) Pathologist [facility] Influenza A PCR NEGATIVE Negative [facility] Influenza B PCR NEGATIVE Negative [facility] Resp Syncy Virus RNA Qual PCR NEGATIVE Negative [facility] SARS COV2 PCR NEGATIVE Negative [facility] Comment:All test results mus t be correlated with clinical findings.Negative results do not preclude SARS-CoV2, influenza Avirus, influenza B virus and/or RSV infectionand should not be used as the sole basis for treatment orother patient management decisions. Negative results must becombined with clinical observations, patient history, andepidemiological information.This test has not been evaluated for monitoring treatment ofinfection.This test has been authorized by the FDA under an EmergencyUse Authorization (EUA) for use by authorized laboratories.Testing performed on the [employer]Key[employer] GeneXpert utilizingreal-time RT-PCR.All SARS CoV2 and positive influenza A/B results arereported to [facility]. 01/12/2025 4:39 AM EDT 01/12/2025 4:42 AM EDT Generic External Data Provider LAB MICROBIOLOGY - GENERAL ORDERABLES Final Result Performing Organization Address [facility] de Phone Number [facility] [address] [place] [phone] * CBC auto differential (01/12/2025 4:39 AM EDT) Only the most recent of2 resultswithin the time period is included. White Blood Count 9.7 4.8 - 10.8 X10*3/uL [facility] Red Blood Count 4.85 4.20 - 5.50 X10*6/uL [facility] Hemoglobin 13.6 12.0 - 16.0 g/dl [facility] Hematocrit 42.0 37.0 - 47.0 % [facility] Mean Corpuscular Volume 86.6 80.0 - 98.0 fL [facility] Mean Corpuscular Hemoglobin 28.0 27.0 - 33.0 pg [facility] Mean Corpuscular HGB Conc 32.4 31.0 - 35.0 g/dl [facility] Red Cell Distribution Width 13.5 11.0 - 16.0 % [facility] Platelet Count 339 160 - 400 X10*3/uL [facility] Mean Platelet Volume 11.0 9.4 - 12.3 fL [facility] Neutrophils Percent Auto 62.9 45 - 73 % [facility] Imm Gran Pct Auto 0.3 0.0 - 0.4 % [facility] Lymphocytes Percent Auto 27.6 20 - 40 % [facility] Monocytes Percent Auto 6.8 2 - 11 % [facility] Eosinophils Percent Auto 2.1 0 - 4 % [facility] Basophils Percent Auto 0.3 0 - 2 % [facility] NRBC Pct Auto 0.0 0.0 - 0.2 /100WBC [facility] Neutrophils Absolute Auto 6.1 2.0 - 8.3 x10*3/uL [facility] Imm Gran Abs Auto 0.03 0.00 - 0.03 X10*3/uL [facility] Lymphocytes Absolute Auto 2.7 1.2 - 4.9 X10*3/uL [facility] Monocytes Absolute Auto 0.7 0.1 - 1.2 X10*3/uL [facility] Eosinophils Absolute Auto 0.2 0.0 - 0.4 X10*3/uL [facility] Basophils Absolute Auto 0.0 0.0 - 0.2 X10*3/uL [facility] NRBC Abs Auto 0.000 0.0 - 0.012 X10*3/uL [facility] 01/12/2025 4:39 AM EDT 01/12/2025 4:42 AM EDT Generic External Data Provider LAB BLOOD ORDERAB LES Final Result Performing Organization Address City/[facility]/ZIP Co de Phone Number [facility] [address] [place] [address] [phone] * hCG, Total, Quantitative (01/12/2025 4:39 AM EDT) HCG Quantitative <2 mIU/mL [facility] Comment:Weeks post LMP Appro ximate hCG(Last Menstrual Period) Range (mIU/ml)3 - 4 weeks 9 - 1304 - 5 weeks 75 - 2,6005 - 6 weeks 850 - 20,8006 - 7 weeks 4000 - 100,2007 - 12 weeks 11,500 - 289,65446 - 16 weeks 18,300 - 137,63608 - 29 weeks (2nd trimester) 1,400 - 53,84733 - 41 weeks (3rd trimester) 940 - 60,000The Olivera B- hCG assay is used for the early detection ofpregnancy; it cannot be used to diagnose any conditionunrelated to . If a B-hCG level is not supportedby the clinical evidence, results should be confirmed by analternative method (qualitative urine hCG, for example). 01/12/2025 4:39 AM EDT 01/12/2025 4:42 AM EDT Generic External Data Provider LAB BLOOD ORDERAB LES Final Result Performing Organization Address City/[facility]/ZIP Co de Phone Number [facility] [address] [place] [address] [phone] * Lipase (01/12/2025 4:39 AM EDT) Only the most recent of2 resultswithin the time period is included. Lipase 22 8 - 78 U/L [facility] 01/12/2025 4:39 AM EDT 01/12/2025 4:42 AM EDT us Generic External Data Provider LAB BLOOD ORDERAB LES Final Result [facility] [address] [place] [address] [phone] * (ABNORMAL) Comprehensive Metabolic Panel (01/12/2025 4:39 AM EDT) Sodium 139 135 - 145 mmol/L [facility] Potassium 4.8 3.3 - 5.1 mmol/L [facility] Comment:Moderate Hemolysis.I nterpret result with caution. Chloride 105 96 - 108 mmol/L [facility] Carbon Dioxide 23 22 - 29 mmol/L [facility] Anion Gap 16 12 - 20 [facility] Urea Nitrogen (BUN) 12 9 - 16 mg/dL [facility] Creatinine, Serum 0.93 0.5 - 1.4 mg/dL [facility] Creatinine Clr Calc Pharmacy 101.9 [facility] Comment:Provided height and weight: 172.72 cm,122.47 kg.eGFR (calculated from the MDRD study equation) and eCrCl(calculated from the Cockcroft-Gault equation) are based ondifferent parameters and may not yield comparable results.If eCrCl result is absurd, please check patient'sheight/weight. Estimated Glomerular Filt Rate >60 [facility] Comment:Chronic Kidney Disea se: Estimated GFR < 60 mL/min/1.55h3Ysztvu Kidney Disease: Estimated GFR < 15 mL/min/1.73m2 Glucose 126(H) 60 - 115 mg/dL [facility] Calcium 9.1 8.4 - 10.2 mg/dL [facility] Bilirubin, Total 0.3 0.0 - 1.0 mg/dL [facility] Aspartate Amino Transferase 42(H) 5 - 31 U/L [facility] Comment:Moderate Hemolysis.I nterpret result with caution. Alanine Aminotransferase 23 0 - 31 U/L [facility] Total Protein 7.6 6.5 - 8.0 g/dL [facility] Comment:Moderate Hemolysis.I nterpret result with caution. Albumin Level 3.9 3.5 - 5.0 g/dL [facility] Alkaline Phosphatase 111 39 - 117 U/L [facility] 01/12/2025 4:39 AM EDT 01/12/2025 4:42 AM EDT Generic External Data Provider LAB BLOOD ORDERAB LES Final Result Performing Organization Address City/[facility]/ZIP Co de Phone Number [facility] [address] [place] [phone] * Culture, Urine, Routine (01/12/2025 12:00 AM EDT) Urine Urine specimen obtained by clean catch procedure / Unknown 01/12/2025 01/12/2025 Comment:UACC Narrative [facility] - 01/13/2025 11:39 AM EDT Urine Culture Report Result Urine Culture 10,000 to 50,000 cfu/ml Urine Culture Mixed bacterial amisha characteristic of Urine Culture urogenital contamination. Specimen Source: Urine clean catch Generic External Data Provider LAB MICROBIOLOGY - GENERAL ORDERABLES Final Result Performing Organization Address City/[facility] Co de Phone Number [facility] [address] [place] [phone] * POCT Glucose (01/07/2025 2:45 PM EDT) Only the most recent of2 resultswithin the time period is included. Glucose Blood, POC 122 60 - 200 mg/dL QC Media Lot # [id number] Lot# Expiration Date Blood Capillary blood specimen / Unknown 01/07/2025 2:45 PM EDT us Lisa Galvan MD POINT OF CARE TEST ENTER/EDIT ORDERABLES Final Result * Vitamin K1 (01/01/2025 10:22 AM EDT) Vitamin K1 178 130 - 1500 pg/mL [facility] Comment:This test was develo ped and its analytical performancecharacteristics have been determined by [employer] [place], [place]. It hasnot been cleared or approved by the U.S. Food and DrugAdministration. This assay has been validated pursuantto the CLIA regulations and is used for clinicalpurposes.THIS TEST WAS PERFORMED AT:[employer]/[facility] [place] [address]LWOBLCEFRANKLYN MARTINS MD,PHD 01/01/2025 10:2 2 AM EDT 01/01/2025 10:22 AM EDT us Generic External Data Provider LAB BLOOD ORDERAB LES Final Result Performing Organization Address [facility] Co de Phone Number [facility] [address] [place] [phone] * Vitamin B12 (Cobalamin) and Folate Panel, Serum (01/01/2025 10:22 AM EDT) Vitamin B12 608 200 - 900 pg/mL [facility] Comment:NORMAL 200-900 PG/ML INDETERMINATE 160-199 PG/ML DEFICIENT < 160 PG/ML Folate 11.7 > or = 4.0 ng/mL [facility] Comment:Reference Values:> o r = 4.0 ng/mL< 4.0 ng/mL suggests folate deficiency Methotrexate, aminopterin and folinic acid(leucovorin) are chemotherapeutic agents whose molecularstructures are similar to folate; therefore, the Architectfolate assay cannot be used for patients using these drugs. 01/01/2025 10:2 2 AM EDT 01/01/2025 10:22 AM EDT us Generic External Data Provider LAB BLOOD ORDERAB LES Final Result Performing Organization Address [facility]/ZIP Co de Phone Number [facility] [address] [place] [phone] * Alkaline phosphatase, isoenzymes (01/01/2025 10:22 AM EDT) Alkaline Phosphatase 99 31 - 125 U/L [facility] Intestinal Isoenzymes 11 1 - 24 % [facility] Bone Isoenzymes 31 28 - 66 % [facility] Liver Isoenzymes 58 25 - 69 % [facility] Placental Isoenzymes 0 <=0 % [facility] Macrohepatic Isoenzymes 0 <=0 % [facility] Comment:THIS TEST WAS PERFOR MED AT:[employer]/[facility] [id number] [place] [address]BKBEWBZFRANKLYN MARTINS MD,PHD Interpretation TNP [facility] 01/01/2025 10:2 2 AM EDT 01/01/2025 10:22 AM EDT us Generic External Data Provider LAB BLOOD ORDERAB LES Final Result Performing Organization Address [facility] Co de Phone Number [facility] [address] [place] [phone] * Tissue Transglutaminase Antibody, IgA (01/01/2025 10:22 AM EDT) Transglutaminase IgA <1.0 U/mL [facility] Comment:Value Interpretation ----- <15.0 Antibody not detected> or = 15.0 Antibody detectedTHIS TEST WAS PERFORMED AT:[employer] [address] [address]BTXZKMANJEET SANCHEZ MD 01/01/2025 10:2 2 AM EDT 01/01/2025 10:22 AM EDT us Generic External Data Provider LAB BLOOD ORDERAB LES Final Result Performing Organization Address [facility]/ZIP Co de Phone Number [facility] [address] [place] [phone] * Vitamin A (01/01/2025 10:22 AM EDT) Vitamin A (Retinol) 45 38 - 98 mcg/dL [facility] Comment:Vitamin supplementat ion within 24 hours prior toblood draw may affect the accuracy of the results.This test was developed and its analytical performancecharacteristics have been determined by [employer], [place]. It hasnot been cleared or approved by the U.S. Food and DrugAdministration. This assay has been validated pursuantto the CLIA regulations and is used for clinicalpurposes.THIS TEST WAS PERFORMED AT:[employer] [id number] [place] [address]ARVUDJIFRANKLYN MARTINS MD,PHD 01/01/2025 10:2 2 AM EDT 01/01/2025 10:22 AM EDT us Generic External Data Provider LAB BLOOD ORDERAB LES Final Result [facility] [address] [place] [phone] * Vitamin D 1,25 dihydroxy (01/01/2025 10:22 AM EDT) Vit D (1,25-Dihydroxy) Total 28 18 - 72 pg/mL [facility] VITAMIN D (1,25 OH) D3 28 pg/mL [facility] Vitamin D (1,25 OH) D2 <8 pg/mL [facility] Comment:Vitamin D3, 1,25(OH) 2 indicates both endogenousproduction and supplementation. Vitamin D2, 1,25(OH)2is an indicator of exogenous sources, such as diet orsupplementation. Interpretation and therapy are basedon measurement of Vitamin D,1,25(OH)2, Total.This test was developed and its analyticalperformance characteristics have been determinedby [employer], [place].It has not been cleared or approved by the FDA. Thisassay has been validated pursuant to the CLIAregulations and is used for clinical purposes.THIS TEST WAS PERFORMED AT:[employer]/[facility] [place] [address]VKFXWQTFRANKLYN MARTINS MD,PHD 01/01/2025 10:2 2 AM EDT 01/01/2025 10:22 AM EDT Generic External Data Provider LAB BLOOD ORDERAB LES Final Result Performing Organization Address City/[facility]/ZIP Co de Phone Number [facility] [address] [place] [phone] * (ABNORMAL) C-reactive Protein (01/01/2025 10:22 AM EDT) Pathologist [facility] C Reactive Protein 2.22(H) < or = 0.50 mg/dL [facility] 01/01/2025 10:2 2 AM EDT 01/01/2025 10:22 AM EDT Generic External Data Provider LAB BLOOD ORDERAB LES Final Result Performing Organization Address [facility] Co de Phone Number [facility] [address] [place] [phone] * Vitamin E (Tocopherol) (01/01/2025 10:22 AM EDT) Vitamin E, Alpha-Tocopherol 13.4 5.7 - 19.9 mg/L [facility] Comment:Levels of alpha-toco pherol <5 mg/L are consistentwith Vitamin E deficiency in adults. Vitamin E, Cnih-Fgtke-Dazwitydyf 1.1 <=4.3 mg/L [facility] Comment:Vitamin supplementat ion within 24 hours prior toblood draw may affect the accuracy of the results.This test was developed and its analytical performancecharacteristics have been determined by [employer] [place], [place]. It hasnot been cleared or approved by the U.S. Food and DrugAdministration. This assay has been validated pursuantto the CLIA regulations and is used for clinicalpurposes.THIS TEST WAS PERFORMED AT:[employer]/[id number] [place] [address]NKHYQLDFRANKLYN MARTINS MD,PHD 01/01/2025 10:2 2 AM EDT 01/01/2025 10:22 AM EDT Generic External Data Provider LAB BLOOD ORDERAB LES Final Result Performing Organization Address [facility]/ZIP Co de Phone Number [facility] [address] [place] [phone] * Ferritin (01/01/2025 10:22 AM EDT) Ferritin 50 10 - 250 ng/mL [facility] 01/01/2025 10:2 2 AM EDT 01/01/2025 10:22 AM EDT Generic External Data Provider LAB BLOOD ORDERAB LES Final Result Performing Organization Address [facility] de Phone Number [facility] [address] [place] [phone] * Hepatic Function Panel (01/01/2025 10:22 AM EDT) Only the most recent of2 resultswithin the time period is included. Bilirubin, Total 0.3 0.0 - 1.0 mg/dL [facility] Bilirubin, Direct 0.1 0.0 - 0.5 mg/dL [facility] Aspartate Amino Transferase 17 5 - 31 U/L [facility] Alanine Aminotransferase 25 0 - 31 U/L [facility] Total Protein 7.4 6.5 - 8.0 g/dL [facility] Albumin Level 4.3 3.5 - 5.0 g/dL [facility] Alkaline Phosphatase 102 39 - 117 U/L [facility] 01/01/2025 10:2 2 AM EDT 01/01/2025 10:22 AM EDT us Generic External Data Provider LAB BLOOD ORDERAB LES Final Result Performing Organization Address [facility] de Phone Number [facility] [address] [place] [phone] * Helicobacter pylori, Urea Breath Test (01/01/2025 9:30 AM EDT) H. pylori Breath Test Negative Negative [facility] Comment:Antimicrobials, prot on pump inhibitors and bismuthpreparations are known to suppress H. pylori. Ingestingthese medications within two weeks prior to performing thebreath test may produce negative test results. A positiveresult is still clinically valid. 01/01/2025 9:30 AM EDT 01/01/2025 11:06 AM EDT us Generic External Data Provider LAB BLOOD ORDERAB LES Final Result Performing Organization Address [facility] Phone Number [facility] [address] [place] [address] [phone] * Albumin, Random Urine W/Creatinine (11/30/2024 9:40 AM EDT) Creatinine, Urine 78.76 mg/dL [facility] Microalbumin Urine 11.0 mg/L [facility] Microalbum Creatinine Ratio Ur 13.9 <30 ug/mg cr [facility] Comment:Albumin/Creatinine R atio Reference Ranges: Normal: < 30 ug/mg creatinine Microalbuminuria: 30 - 300 ug/mg creatinineClinical Albuminuria: > 300 ug/mg creatinine Urine (Urine, Random) 11/30/2024 9:40 AM EDT 11/30/2024 2:18 PM EDT us Lisa Galvan MD LAB URINE ORDERABLES Final Re sult Performing Organization Address [facility] Co de Phone Number [facility] [address] [place] [address] [phone] * TSH W/Reflex to FT4 (11/30/2024 9:37 AM EDT) TSH reflex Free T4 1.29 0.32 - 4.0 uIU/mL [facility] Blood Venous blood specimen / Unknown 11/30/2024 9:37 AM EDT 11/30/2024 2:19 PM EDT Lisa Galvan MD LAB BLOOD ORDERABLES Final Re sult Performing Organization Address City/[facility] Co de Phone Number [facility] [address] [place] [address] [phone] * Lipid Panel, Standard (11/30/2024 9:37 AM EDT) Triglycerides 131 <150 mg/dL [facility] Comment:Desirable Triglyceri de: less than 150 mg/dLBorderline High Triglyceride 150-199 mg/dLHigh Triglyceride: 200-499 mg/dLVery High Triglyceride: greater than or equal to 5OO mg/dL Cholesterol 174 <200 mg/dL [facility] Comment:Desirable Cholestero l: less than 200 mg/dLBorderline High Cholesterol: 200-239 mg/dLHigh Cholesterol: greater than 239 mg/dL LDL Cholesterol Calculated 94 <100 mg/dL [facility] Comment:Desirable LDL: less than 100 mg/dLNear Optimal/Above Optimal LDL: 110- 129 mg/dLBorderline High LDL: 130-159 mg/dLHigh LDL: 160-189 mg/dLVery High LDL: greater than or equal to 190 mg/dL HDL Cholesterol 54 >40 mg/dL [facility] Comment:Desirable HDL: great er than 40 mg/dL Note: This HDL assay may give artificially low results in patients with liver disease. Blood Venous blood specimen / Unknown 11/30/2024 9:37 AM EDT 11/30/2024 2:19 PM EDT us Lisa Galvan MD LAB BLOOD ORDERABLES Final Re sult [facility] [address] [place] [phone] * (ABNORMAL) POCT A1C (11/30/2024 9:05 AM EDT) Hemoglobin A1C 7.9(A) 4.0 - 6.0 % QC Media Lot # Comment:[id number] Lot# Expiration Date Comment:07/20/2026 Blood 11/30/2024 9:05 AM EDT us Lisa Galvan MD POINT OF CARE TEST ENTER/EDIT ORDERABLES Final Result * BI Mammogram Screening Tomosynthesis Bilateral (03/30/2024 11:30 AM EDT) Anatomical Region Laterality Modality Breast Bilateral Mammography 03/30/2024 11:3 0 AM EDT Narrative 04/22/2024 8:13 AM EDT ? [facility] ? [address] ?[place] [address] ? Mammography Report ? Signed ? Patient: Hernandez,Nixsaly ?MR#: [id number] ?? [id number] ? : 1975 ?Acct:[id number] ? Age/Sex: 48 / F ?ADM Date: 03/30/24 ? Loc: HO.MAMMO ? Attending Dr: Lisa Galvan MD ? Ordering Physician: Lisa Galvan MD ?Results: 1Ne ?? gative ? Date of Service: 03/30/24 ?Follow Up: 1 Year From Orig ?? inal Mammogram ? Procedure(s): MM tomosynthesis screening BI ?? Accession Number(s): [id number] ? cc: Lisa Galavn MD ? EXAMINATION: ?? MM SCREENING DIGITAL [...] 0809 ? DD/ 1130 ? TD/TT: ? Service Station Manager: ? Procedure Note Jorge Do - 04/22/2024 [facility] [address] [place], [place] [address] Mammography Report Signed Patient: Varsha HernandezhelenMR#: [id number] : 1975Acct:[id number] Age/Sex: 48 / FADM Date: 03/30/24 Loc: HO.MAMMO Attending Dr: Lisa Galvan MD Ordering Physician: Lisa Galvan MDResults: 1Ne gative Date of Service: 03/30/24Follow Up: 1 Year From Orig inal Mammogram Procedure(s): MM tomosynthesis screening BI Accession Number(s): [id number] cc: Lisa Galvan MD EXAMINATION: MM SCREENING [...] in OV> 04/22/24 0809 DD/ 1130 TD/TT: Service Station Manager: Lisa Galvan MD IMG BI PROCEDURES Edited Resu lt - Final * Pap Smear (11/12/2018) Pap smear Performed Historical Provider HEALTH MAINTENANCE Final Result from Last 3 Months or Most Recently Relevant to Health Maintenance Insurance [facility] BS [facility] D[facility] - BS OF [place] [facility] [facility] Care Teams Senior Maintenance Technician Relationship Specialty Start Date End Date Lisa Galvan MD [address] [place] [phone] PCP - General Family Medicine 08/01/12
--- OUTSIDE RECORDS SUMMARY | 2025-01-28 07:45 | XMS_ITS | Encounter Summary ---
Author Organization [employer] Address [address] 7t [place] [address] Care Team Providers Care Pump Erector Helper Name Role Phone Lisa Galvan MD Primary Care Provider [phone] Reason for Visit * Reason Comments Med Refill Encounter Details Date Type Department [facility] Description 08/06/2024 Refill [facility] MED & PEDS [address] [place], [place] [phone] Lisa Galvan MD [address] [place] [address] Social History Tobacco Use Types Packs/Day Years [...] documented in this encounter Plan of Treatment Not on file documented as of this encounter Visit Diagnoses Not on filedocumented in this encounter Care Teams Pump Erector Helper Relationship Specialty Start Date End Date Lisa Galvan MD [address] [place] [address] PCP - General Family Medicine 08/01/12 documented as of this encounter
--- OUTSIDE RECORDS SUMMARY | 2025-01-28 07:45 | XMS_ITS | Encounter Summary ---
Author Organization [employer] Address [address] [facility] 7t [place] [address] Care Team Providers Care Site Specialist Name Role Phone Lisa Galvan MD Primary Care Provider [phone] Encounter Details Date Type Department Care Team ([facility] st Contact Info) Description 03/06/2023 Telephone [facility] CHC MED & PEDS [address] [place], [place] [phone] Lisa Galvan MD [address] [place] [address] Social History Tobacco Use Types Packs/Day Years [...] on filedocumented in this encounter Care Teams Site Specialist Relationship Specialty Start Date End Date Lisa Galvan MD [address] [place] [phone] PCP - General Family Medicine 08/01/12 documented as of this encounter
--- OUTSIDE RECORDS SUMMARY | 2025-01-28 07:45 | XMS_ITS | Encounter Summary ---
Author Organization [employer] Address [address] [facility] 7t [place] [address] Care Team Providers Care Dial Screw Assembler Name Role Phone Lisa Galvan MD Primary Care Provider [phone] Reason for Visit * Reason Comments Med Change Request Encounter Details Date Type Department Care Team ([facility] Contact Info) Description 07/19/2023 Refill [facility] MED [facility] PEDS [address] [place], [place] [phone] Lisa Galvan MD [address] [place] [address] Social History Tobacco Use Types Packs/Day Years [...] on filedocumented in this encounter Care Teams Dial Screw Assembler Relationship Specialty Start Date End Date Lisa Galvan MD [address] [place] [phone] PCP - General Family Medicine 08/01/12 documented as of this encounter
--- OUTSIDE RECORDS SUMMARY | 2025-01-28 07:45 | XMS_ITS | Encounter Summary ---
Author Organization [employer] Address [address] [facility] 7t [place] [address] Care Team Providers Care Engineering Design Manager Name Role Phone Lisa Galvna MD Primary Care Provider [phone] Reason for Visit * Reason Comments Med Refill Encounter Details Date Type Department Care Team ([facility] st Contact Info) Description 11/30/2024 Refill [facility] ADULT DENTAL [address] [place] [address] Lucy Grimm, DDS [address] [place], [place] [phone] Social History Tobacco Use Types Packs/Day Years [...] AM EDT documented as of this encounter Functional Status * Over the past 2 weeks, how often have you been bothered by any of the following problems? Question Answer Date of Assessment Author Patient Health Questionnaire -2 Score 0 11/30/2024 9:28 AM EDT Shala Lynch [place] * Little interest or pleasure in doing things Answer Date of Assessment Author Not at all 11/30/2024 9:28 AM EDT [facility] [place] * Feeling down, depressed, or hopeless Answer Date of Assessment Author Not at all 11/30/2024 9:28 AM EDT [facility] [place] * Trouble falling or staying asleep, or sleeping too much Answer Date of Assessment Author More than half the days 11/30/2024 9:28 AM EDT [facility] Johnston [place] * Feeling tired or having little energy Answer Date of Assessment Author More than half the days 11/30/2024 9:28 AM EDT Mercy Johnston [place] * Poor appetite or overeating Answer Date of Assessment Author Not at all 11/30/2024 9:28 AM EDT [facility] [place] * Feeling bad about yourself - or that you are a failure or have let yourself or your family down Answer Date of Assessment Author Not at all 11/30/2024 9:28 AM EDT [facility] [place] * Trouble concentrating on things, such as reading the newspaper or watching television Answer Date of Assessment Author Not at all 11/30/2024 9:28 AM EDT Mercy Rodriguez [place] * Moving or speaking so slowly that other people could have noticed? Or the opposite - being so fidgety or restless that you have been moving around a lot more than usual. Answer Date of Assessment Author Not at all 11/30/2024 9:28 AM EDT [facility]cy Rodriguez [place] * Thoughts that you would be better off or hurting yourself in some way Answer Date of Assessment Author Not at all 11/30/2024 9:28 AM EDT Mercy Rodriguez [place] * Patient Health Questionnaire-9 Score Answer Date of Assessment Author 4 11/30/2024 9:28 AM EDT Mercy Rodriguez [place] * How difficult have these problems made it for you to do your work, take care of things at home, or get along with other people? Answer Date of Assessment Author Not difficult at all 11/30/2024 9:28 AM EDT [facility] Honeycutt [place] documented as of this encounter Miscellaneous Notes * Telephone Encounter - Sung Gallardo DMD - 11/30/2024 1:36 PM EDT Please follow up with Dr. Araujo documented in this encounter Plan of Treatment Not on file documented as of this encounter Visit Diagnoses Not on filedocumented in this encounter Additional Health Concerns Assessment Noted Time PHQ-9 Depression Total Score: 4 12/01/19 9:28 AM EDT documented as of this encounter Care Teams Engineering Design Manager Relationship Specialty Start Date End Date Lisa Galvan MD [address] [place] [phone] PCP - General Family Medicine 08/01/12 documented as of this encounter
--- OUTSIDE RECORDS SUMMARY | 2025-01-28 07:45 | XMS_ITS | Encounter Summary ---
Author Organization [employer] Address [address] [facility] 7t [place] [address] Care Team Providers Care Concert Manager Name Role Phone Lisa Galvan MD Primary Care Provider [phone] Reason for Visit * Reason Onset Date Comments Med Refill 10/08/2023 Encounter Details Date Type Department Care Team ([facility] st Contact Info) Description 10/08/2023 Telephone [facility] MEDICINE [address] [place] [address] Lisa Galvan MD [address] [place] [address] [phone] Med Refill Social History Tobacco Use Types [...] nebulizer solution To be sent to: [facility]/pharmacy #[id number] - [place] - [address] [place] [address] [address] [place] [address] documented in this encounter Plan of Treatment Not on file documented as of this encounter Visit Diagnoses Not on filedocumented in this encounter Care Teams Concert Manager Relationship Specialty Start Date End Date Lisa Galvan MD [address] [place] [phone] PCP - General Family Medicine 08/01/12 documented as of this encounter
== END 2025-01-28 07:44 | disposition home or self-care (01) ==
LOC: HO.US 07:43
PROVIDERS: PCP Pediatrics; Visit Provider Physician Assistant Surgical
DX: I83.11 Varicose veins of right lower extremity with inflammation (principal); I83.12 Varicose veins of left lower extremity with inflammation
CPT/HCPCS: 93970

== ENCOUNTER → 2025-01-28 07:45 | Outpatient (BNV) | payer BC, OTHER, SELFPAY | PROVIDERS: PCP Pediatrics; Visit Provider Radiology Diagnostic Radiology | DX: I83.812 Varicose veins of left lower extremity with pain (principal); I87.2 Venous insufficiency (chronic) (peripheral) | CPT/HCPCS: 93970 ==

== ENCOUNTER 2025-03-02 08:20 | Outpatient (AMB) | payer BC, OTHER, SELFPAY ==
--- NOTE | 2025-03-02 08:25 | A.OFFVIS_ITS ---
Vital Signs 03/02/25 08:28 Height 5 ft 8 in Weight 264 lb BMI 40.1 BP 136/78 Blood Pressure Location Lt brachial Position Sitting Pulse 88 Pulse Oximetry (%) 97 Oxygen Delivery Method Room Air Intake Visit Reasons: Diarrhea/Abd./chest pain 8 wks f/u Intake Note: Patient complex follow up for abdominal pain, lab, EKG. and h pylori results. No fecal results. Patient cc: Nauseas, abdominal pain and discomfort with any food, some bloating on and off, and between diarrhea and constipation. Corn Shucker Required: No Accompanied by: Self / Same As Patient Allergies No Known Allergies Allergy (Verified 03/02/25 10:15) HPI HPI Diarrhea/Abd./chest pain 8 wks f/u: Details: Patient is a 49-year-old female with PMH of hypothyroidism and DMII. Monie presents for follow-up of abdominal pain and diarrhea. Symptoms have been ongoing since the last visit. A recent ER visit due to worsening pain led to a CT scan, which identified a non-obstructing kidney stone on the right side but no significant findings related to the pain. The pain is described as coming and going, worsening with diet changes, and sometimes leading to floating sensations. Previous treatment included dicyclomine tablets, which have been helpful when taken twice daily. The patient tried dietary modifications, which improved symptoms, particularly by avoiding certain foods. Currently, she has loose stools most of the time and occasional black stool, improves with imodium but if use frequently will cause her constipation. Patient denies: fever/chills, vomiting, pyrosis, regurgitation,dysphasia, unintentional wt loss or melena/hematochezia. [facility] Medical History Abdominal pain Diarrhea Chest pain Elevated alkaline phosphatase level Hypothyroid Diabetes type 2, controlled Surgical History History of esophagogastroduodenoscopy (EGD) History of colposcopy Tubal ligation status Social History Household Members: Spouse Alcohol intake: never Patient Tobacco Use Status: Never used Tobacco Review of Systems Const Reports as per HPI ENT Reports as per HPI Card Reports as per HPI Resp Reports as per HPI GI Reports as per HPI Reports as per HPI Physical Exam Vital Signs: Last Vital Signs Pulse 88 03/02/25 08:28 BP 136/78 03/02/25 08:28 Pulse Ox 97 03/02/25 08:28 Oxygen Delivery Method Room Air 03/02/25 08:28 BMI result Body Mass Index 40.1 Const General: healthy appearing and no acute distress Nutritional Appearance: obese Orientation/consciousness: patient oriented x3 HEENT Head: Yes normal to inspection, Yes normocephalic and Yes atraumatic Face and sinus: Yes normal facial exam Eyes General: appearance normal, both eyes and all related structures Neck Neck: Yes normal visual inspection Resp Effort & Inspection: normal respiratory effort, able to speak in complete sentences, no tracheal deviation and symmetric chest movement Auscultation: clear to auscultation bilaterally Cardio Jugular venous distension: no JVD Rate: regular rate Rhythm: regular rhythm Heart sounds: S1 normal heart sound present, S2 normal heart sound present, no gallops and no murmurs GI Inspection: Yes normal to inspection, No distended and Yes obesity Palpation (GI): Soft to palpation, not firm, nontender and No hepatosplenomegaly present Auscultation: Hypoactive bowel sounds present (limited by compression garment ) Neuro General: patient oriented x3 Gait exam (Neuro): Normal gait present Psych Appearance: grossly normal Mental Status: mental status grossly normal Speech and movement: Normal speech and movement present Affect: normal affect Attitude: cooperative Thought process: Normal thought process present Thought content: Normal thought content present Insight: Good insight present (Psych) Judgement: Good judgement present (Psych) Assessment & Plan Assessment & Plan (1) Abdominal pain: Code(s): R10.9 - Unspecified abdominal pain Category: Medical Qualifiers: Abdominal location: right upper quadrant Qualified Code(s): R10.11 - Right upper quadrant pain Plan: Previous Workup: CT abdomen/pelvis (ER, December): Normal except for non-obstructing right kidney stone. Labs: Normal vitamin, kidney, and most liver panels; no celiac disease; no deficiencies. Additional Tests: - Abdominal ultrasound to evaluate the liver, gallbladder, and pancreas - Repeat liver function tests with fasting - Stool testing to r/o inflammation pending (patient to collect and submit stool sample) Medications: Continue dicyclomine 10mg oral BD as it is providing relief. Lifestyle Modifications: - Increase dietary fiber intake, handout provided - Maintain hydration and increase water intake. - Avoid potential trigger foods. (2) Diarrhea: Code(s): R19.7 - Diarrhea, unspecified Category: Medical Qualifiers: Diarrhea type: unspecified type Qualified Code(s): R19.7 - Diarrhea, unspecified Plan: ongoing, intermittent. Symptoms consistent with IBS with intermittent pain, loose stools, symptom improvement with dietary changes Additional Tests: - Stool studies as above - endoscopy pending ( EGD + colonoscopy) Medications: - Imodium PRN for severe diarrhea; avoid overuse to prevent constipation. Lifestyle Modifications: - Increase fiber-rich foods (fruits, vegetables, whole grains). - Maintain food/symptom diary to identify triggers. Plan follow up in 4 weeks or sooner as needed Time: I spent a total of 20 minutes on the date of encounter which includes: Preparing to see the patient (reviewed previous documentation, test results and medical history) Performing a medically appropriate exam and/or evaluation Ordering medications, tests, and procedures Documenting clinical information in the health record Orders: Orders HIV Ab/Ag Today R74.01 - Elevation of levels of liver transaminase levels Lipase Today R74.01 - Elevation of levels of liver transaminase levels Prothrombin Time INR Today R74.01 - Elevation of levels of liver transaminase levels Smooth Muscle Antibody Today R74.01 - Elevation of levels of liver transaminase levels Mitochondrial Antibody Today R74.01 - Elevation of levels of liver transaminase levels Hepatitis A,B,C Profile Today R74.01 - Elevation of levels of liver transaminase levels Ferritin Today R74.01 - Elevation of levels of liver transaminase levels HELEN Reflex Titer and Pattern Today R74.01 - Elevation of levels of liver transaminase levels Hemoglobin A1c Today R73.09 - Other abnormal glucose Comprehensive [place]. Panel Fast Today R74.01 - Elevation of levels of liver transaminase levels US abdomen complete Today R10.11 - Right upper quadrant pain, R74.01 - Elevation of levels of liver transaminase levels Coding Level of Care Code Established Pt Est Pt Level 3 (01419) Patient Type Established Diagnoses Right upper quadrant abdominal pain R10.11 Abdominal location: right upper quadrant Diarrhea, unspecified type R19.7 Diarrhea type: unspecified type
[2025-03-02 08:28] VITALS: BP 136/78; PULSE 88; O2SAT 97; BMI 40.1
--- OUTSIDE RECORDS SUMMARY | 2025-03-02 08:32 | XMS_ITS | Encounter Summary ---
Author Organization [employer] Address [address] [facility] 7 [place] [address] Care Team Providers Care Investigator Claims Name Role Phone Lisa Galvan MD Primary Care Provider [phone] Reason for Visit * Reason Onset Date Comments Med Refill 10/08/2023 Encounter Details Date Type Department Care Team ([facility] Contact Info) Description 10/08/2023 Telephone [facility] MEDICINE [address] [place] [address] Lisa Galvan MD [address] [place] [phone] Med Refill Social History Tobacco Use Types [...] 0.083% nebulizer solution To be sent to: [facility]/pharmacy #[id number] - [place] - [address] [facility] [address] [place] [address] documented in this encounter Plan of Treatment Not on file documented as of this encounter Visit Diagnoses Not on filedocumented in this encounter Care Teams Investigator Claims Relationship Specialty Start Date End Date Lisa Galvan MD [address] [place] [phone] PCP - General Family Medicine 08/01/12 documented as of this encounter
== END 2025-03-02 09:24 | disposition home or self-care (01) ==
LOC: HO.HGI 08:21
PROVIDERS: PCP Pediatrics; Visit Provider Nurse Practitioner Family
DX: R10.11 Right upper quadrant pain (principal); R19.7 Diarrhea, unspecified
CPT/HCPCS: 99213

== ENCOUNTER → 2025-03-02 08:20 | Outpatient (BNVA) | payer BC, OTHER, SELFPAY | PROVIDERS: PCP Pediatrics; Visit Provider Nurse Practitioner Family ==

== ENCOUNTER 2025-03-02 10:05 | Outpatient (AMB) | payer BC, OTHER, SELFPAY ==
--- NOTE | 2025-03-02 10:09 | A.OFFVIS_ITS ---
Intake Visit Reasons: follow up s/p US 01/28/25 Intake Note: Patient presents for follow up US. Right leg pain is worse than the left. Accompanied by: Self / Same As Patient Allergies No Known Allergies Allergy (Verified 03/02/25 10:15) [facility] follow up s/p US 01/28/25: Details: The patient is a 49-year-old female presenting with follow-up for venous insufficiency. She reports about two months of a worsening condition in her right leg, with standing from bed being a particular trigger that causes pain and a sensation described as lumps throughout the area. Symptoms are bilateral, though predominantly affecting the right leg. She has not reported any allergies. The patient has no history of treatment specific for her venous insufficiency mentioned. She has had a trial of compression stockings with no significant relief. She now presents for follow-up with venous insufficiency testing COUNT INCLUDES THE [facility] Medical History Abdominal pain Diarrhea Chest pain Elevated alkaline phosphatase level Hypothyroid Diabetes type 2, controlled Surgical History History of esophagogastroduodenoscopy (EGD) History of colposcopy Tubal ligation status Social History Household Members: Spouse Alcohol intake: never Patient Tobacco Use Status: Never used Tobacco Review of Systems Const Reports as per HPI ENT Reports no additional complaints Card Denies chest pain, Denies chest pain at rest and Denies chest pain with activity Resp Denies chest congestion and Denies cough GI Reports no additional complaints Musc Details: pain over varicosities, aching of lower extremities, swelling, cramping, heaviness and tiredness, itching Denies abnormal gait Skin/Breast Reports pruritus and Denies wounds Neuro Reports no additional complaints and Denies abnormal gait Psych Denies no additional complaints Physical Exam Const General: cooperative, healthy appearing and comfortable Orientation/consciousness: oriented to person, oriented to place and oriented to time Neck Carotids: no bruits Chest Chest palpation & inspection: normal inspection of the chest and normal palpation of entire chest wall Resp Effort & Inspection: normal respiratory effort and able to speak in complete sentences Cardio Rate: regular rate Heart sounds: S1 normal heart sound present and S2 normal heart sound present Peripheral pulses: Peripheral pulses 2+ throughout GI Inspection: Yes normal to inspection Skin Other: +2 edema, large rope-like varicosities greater than 4 mm CEAP Classification C4 - skin color changes Ep - Etiology Primary As - superficial veins P - reflux General skin exam: dry skin Neuro General: oriented to person, oriented to place and oriented to time Extrem Right lower extremity: full ROM, normal capillary refill and edema Left lower extremity: full ROM, normal capillary refill and edema Psych Mental Status: mental status grossly normal Results Reviewed Results Reviewed: Brief summary of venous insufficiency testing is as follows: right great saphenous vein: Positive right small saphenous vein: negative right accessory vein: none present left great saphenous vein: Positive left small saphenous vein: negative left accessory vein: none present Please note there is no evidence of any venous aneurysms or significant tortuosity Assessment & Plan Assessment & Plan (1) Varicose veins of right lower extremity with inflammation: Code(s): I83.11 - Varicose veins of right lower extremity with inflammation Category: Medical Plan: This patient has varicose veins with inflammation. They continue to be a source of discomfort for the patient. The patient has tried conservative treatment with compression, leg elevation and exercise program for over 3 months time. They have been compliant with all treatment. This has provided minimal relief for the patient. I do not anticipate this course of treatment will alter the underlying etiology. The patient has been scheduled for lower extremity venous treatment inclusive of --- right great saphenous vein Cyanoacralate ablation. Risks, benefits, and complications of this procedure has been discussed in detail with the patient including but not limited to bleeding, infection, and the development of a DVT. The patient has demonstrated a clear understanding and has consented. We will schedule the patient as soon as possible. Thank you for allowing us to participate in this patient's care. If there are any questions or concerns please do not hesitate to contact us. Coding Level of Care Code Est Pt Level 4 (41502) Complex EM visit Add On G2211 Diagnoses Varicose veins of right lower extremity with inflammation I83.11
== END 2025-03-02 10:43 | disposition home or self-care (01) ==
LOC: HO.HVS 10:06
PROVIDERS: PCP Pediatrics; Visit Provider Surgery Vascular Surgery
DX: I83.11 Varicose veins of right lower extremity with inflammation (principal)
CPT/HCPCS: 99214

== ENCOUNTER 2025-03-12 07:59 | Outpatient (AMB) | payer BC, OTHER, SELFPAY ==
--- OUTSIDE RECORDS SUMMARY | 2025-03-12 08:03 | XMS_ITS | Encounter Summary ---
Author Organization [employer] Address [address] 7 [place] [address] Care Team Providers Care Ios Software Engineer Name Role Phone Lisa Galvan MD Primary Care Provider [phone] Reason for Visit * Reason Onset Date Comments Med Refill 10/08/2023 Encounter Details Date Type Department Care Team ([facility] Contact Info) Description 10/08/2023 Telephone [facility] MEDICINE [address] [place] [address] Lisa Galvan MD [address] [place] [phone] Med Refill Social History Tobacco Use Types [...] 0.083% nebulizer solution To be sent to: [facility]/pharmacy #[id number] - [place] - [address], [place] [address] documented in this encounter Plan of Treatment Not on file documented as of this encounter Visit Diagnoses Not on filedocumented in this encounter Care Teams Ios Software Engineer Relationship Specialty Start Date End Date Lisa Galvan MD [address] [place] [phone] PCP - General Family Medicine 08/01/12 documented as of this encounter
--- NOTE | 2025-03-12 09:17 | MHC.OFFVIS ---
Intake Visit Reasons: Right Venaseal Accompanied by: Self / Same As Patient Allergies No Known Allergies Allergy (Verified 03/12/25 09:18) [facility] Medical History Abdominal pain Diarrhea Chest pain Elevated alkaline phosphatase level Hypothyroid Diabetes type 2, controlled Surgical History History of esophagogastroduodenoscopy (EGD) History of colposcopy Tubal ligation status Social History Household Members: Spouse Alcohol intake: never Patient Tobacco Use Status: Never used Tobacco Office Procedures Vascular Office Procedure Details Details: Diagnosis: Right Leg varicose veins with inflammation Procedure: Endovenous Ablation of the right Great Saphenous Vein with VenaSeal Closure System Anesthesia: Local infiltration 5 cc, Resident Care Manager Rn: None Estimated Blood Loss: min Specimen: none Duplex ultrasound was used to map out the insufficient saphenous vein, and access was determined and marked on the overlying skin. The depth and diameter of the vein(s) to be treated was documented. The patient was placed supine on the procedure table and the leg was prepped and draped using sterile technique. Ultasound guidance was again used to localize the access site. 1% lidocaine was injected as a local anesthetic in the subcutaneous tissues at the target location in the GSV in the lower leg. Using ultrasound guidance, access was gained at this location with the 19 gauge thin walled access needle and followed by introduction of a short guidewire, location confirmed with ultrasound. A small, 3 mm incision was made at the access site to allow for introduction and placement of the 7 Fr x7cm introducer/dilator. The dilator and guidewire were removed. The 0.035 guidewire from the VenaSeal kit was then introduced and positioned at the saphenofemoral junction using ultrasound guidance. The 80 cm 7 Fr introducer sheath/dilator was positioned 5cm from the saphenofemoral junction. The guidewire and dilator were removed, and the remaining sheath was flushed with sterile saline, with the syringe remaining in place prior to the next steps. The cyanoacrylate adhesive was precisely primed into the 5 F delivery catheter and this catheter/syringe combination was attached within the dispenser gun. This assembly was introduced through the 7F sheath and positioned 5 cm caudal of the saphenofemoral junction under ultrasound guidance. The steps from the IFU were followed for dispensing amounts, locations and compression times, 2 aliquots proximally with 3 minutes of compression, and 1 aliquot every 3 cm distally with 30 sec of compression along the course of the vessel. Following the last injection and compression sequence, the catheter and introducer sheath were pulled out from the access site. Hemostasis was achieved with manual compression and an adhesive bandage was applied to the incision. Ultrasound confirmed complete coaptation and closure of the treated segments of the GSV, and the absence of any DVT at the saphenofemoral junction. Treatment time was approximately 6 minutes and the vein length treated was 45 cm. The drapes were removed and the patient cleaned and prepared for discharge. Post op ultrasound check is scheduled for 48-72 hours and the patient was given written post-op instructions. 66261 - Endoven Ther Chem Adhes 1st All charges added?: Procedure code (CPT) selection complete Assessment & Plan Assessment & Plan (1) Varicose veins of right lower extremity with inflammation: Comment: 03/12/2025 - right great saphenous vein Cyanoacralate ablation Code(s): I83.11 - Varicose veins of right lower extremity with inflammation Category: Medical Plan: See op note Coding Level of Care Code Procedure Only Diagnoses Varicose veins of right lower extremity with inflammation I83.11 CPT Codes Details - Vascular 3: 70527 - Endoven Ther Chem Adhes 1st ([id number])
== END 2025-03-12 10:05 | disposition home or self-care (01) ==
LOC: HO.HVS 08:00
PROVIDERS: PCP Pediatrics; Visit Provider Surgery Vascular Surgery
DX: I83.11 Varicose veins of right lower extremity with inflammation (principal)
CPT/HCPCS: 36482

== ENCOUNTER → 2025-03-12 07:59 | Outpatient (BNVA) | payer BC, OTHER, SELFPAY | PROVIDERS: PCP Pediatrics; Visit Provider Surgery Vascular Surgery | DX: I83.11 Varicose veins of right lower extremity with inflammation (principal); E03.9 Hypothyroidism, unspecified; E11.9 Type 2 diabetes mellitus without complications | CPT/HCPCS: 36482; J2003 ==

== ENCOUNTER 2025-03-25 08:32 | Outpatient (REF) | payer BC, OTHER, SELFPAY ==
--- OUTSIDE RECORDS SUMMARY | 2025-03-25 08:42 | XMS_ITS | Clinical Summary ---
Author Organization [facility] ity Address [address] [place] [address] Care Team Providers Care Records Supervisor Name Role Phone Lisa Galvan MD Primary Care Provider [phone] Social History Tobacco Use Types Packs/Day Years [...] 2023-2 5 season) 2024 Influenza Vaccine (#1) 2025 HIB Vaccines Aged Out No longer [...] 5 Years) and At-Risk Patients (6 to 49 Years) Aged Out No longer eligible b ased on patient's age to complete this topic RSV Immunization Patients Un horacio 20 months Aged Out No longer eligible b ased on patient's age to complete this topic Varicella Vaccines Aged Out No longer eligible based on patient's age to complete this topic Care Teams Records Supervisor Relationship Specialty Start Date End Date Lisa Galvan MD [address] [place] [phone] PCP - General 03/16/21
--- OUTSIDE RECORDS SUMMARY | 2025-03-25 08:42 | XMS_ITS | Patient Health Record ---
Author Organization [facility] Address [address] [place] [id number] Care Team Providers Care Women'S Studies Lecturer Name Role Phone Mnady PATTERSON, Lisa Primary Care Provider Vu Sparks Jr Unavailable Reason For Referral No Information Medications Medication SIG (Take, Route, Frequency, Duration) Notes Start Date End Date Status Omeprazole 20mg qd Acti ve Dicyclomine HCl 20 mg 1 tablet 2-4 times a day Orally 30 days for 30 Active Levothyroxine Sodium 100mcg Active Problems Problem Type SNOMED Code ICD Code Onset Dates Problem Status W/U Status Risk Notes Problem 828391476 Esophageal reflux (530.81) Active confirmed Problem 32957908 Irritable bowel syndrome (564.1) Active confirmed Problem Elevated liver enzymes level (542839135) Elevated liver function tests (790.6) Active confirmed Problem Right upper quadrant pain (789.01) Active confirmed Plan Of Treatment No Information Insurance Providers Payer Name Payer Address Payer Phone Subscriber Number Group Number Insured Name Patient Relationship to Insured Coverage Start Date Coverage End Date MEDICA[employer] OF [facility] [address] [place] [address] [phone] [id number] JAYDEN CARDONA Self - patient is the insured Medical (General) History Medical History History ICD Code egd 8-6-10 colonoscopy 12-16-2009 gastritis anxiety asthma Hypothyroid Denies IN,DM,CVA,Lung disease,renal dise ase frequent kidney infections Surgical History Surgery Date(Month/Year) tubal ligation
--- OUTSIDE RECORDS SUMMARY | 2025-03-25 08:42 | XMS_ITS | Encounter Summary ---
Author Organization [employer] Address [address] [facility] [address] [place] [address] Care Team Providers Care Ramp Service Agent Name Role Phone Lisa Galvan MD Primary Care Provider [phone] Reason for Visit * Reason Onset Date Comments Med Refill 10/08/2023 Encounter Details Date Type Department Care Team ([facility] Contact Info) Description 10/08/2023 Telephone [facility] MEDICINE [address] [place] [address] Lisa Galvan MD [address] [place] [address] Med Refill Social History Tobacco Use Types [...] 0.083% nebulizer solution To be sent to: [facility]/pharmacy #[id number] - [place] WARD - [address], [place] [address] documented in this encounter Plan of Treatment Not on file documented as of this encounter Visit Diagnoses Not on filedocumented in this encounter Care Teams Ramp Service Agent Relationship Specialty Start Date End Date Lisa Galvan MD [address] [place] [phone] PCP - General Family Medicine 08/01/12 documented as of this encounter
[2025-03-25 09:03] LABS: INTERNATIONAL NORM RATIO 0.9 (0.9-1.1); Prothrombin Time 10.8 SEC (10.9-12.4)
[2025-03-25 09:06] LABS: Hemoglobin A1C 112.2707 umol/L; Total Hemoglobin (HGBA1C) 3386.3887 umol/L
[2025-03-25 09:47] LABS: Alanine Aminotransferase 16 U/L (0-31); Albumin Level 4.1 g/dL (3.5-5.0); Alkaline Phosphatase 84 U/L (39-117); Anion Gap 9 (12-20); Aspartate Amino Transferase 21 U/L (5-31); Blood Urea Nitrogen 8 mg/dL (9-16); Calcium 9.0 mg/dL (8.4-10.2); Carbon Dioxide 27 mmol/L (22-29); Chloride 106 mmol/L (96-108); Estimated Glomerular Filt Rate > 60; Lipase 34 U/L (8-78); Potassium 4.1 mmol/L (3.3-5.1); Sodium 138 mmol/L (135-145); Total Protein 6.7 g/dL (6.5-8.0)
[2025-03-25 09:52] LABS: Ferritin 25 ng/mL (10-250)
[2025-03-25 10:07] LABS: HBS Num1 0.31 mIU/mL (0-7.99); HBc Num1 0.08 S/CO (0.00-0.79); HBsAGNum1 0.40 S/CO (0.00-0.99); HIV Num 1 0.06 S/CO (0.00-0.99); Hepatitis A Antibody IgM 0.20 Index (0-0.79); Hepatitis B Surface Antigen Negative (Negative); ~HepC Num1 0.21 S/CO (0.00-0.79); ~Hepatitis A Antibody IgM Nonreactive (Nonreactive); ~Hepatitis B Surface Antibody NONREACTIVE (Nonreactive); ~Hepatitis C Antibody Nonreactive (Nonreactive)
[2025-03-25 11:18] LABS: E. coli EAEC Not Detected (Not Detect.); E. coli EPEC Not Detected (Not Detect.); E. coli ETEC Not Detected (Not Detect.); E. coli STEC Not Detected (Not Detect.); Shigella sp./EIEC Not Detected (Not Detect.)
[2025-03-31 19:23] LABS: Calprotectin, Fecal 6 mcg/g
[2025-04-02 11:33] LABS: Anti Nuclear Antibody Screen POSITIVE (NEGATIVE); Anti Nuclear Antibody Titer 1:80 titer
== END 2025-03-25 08:33 | disposition home or self-care (01) ==
LOC: HO.LAB 08:32
PROVIDERS: PCP Pediatrics; Visit Provider Nurse Practitioner Family
DX: I83.12 Varicose veins of left lower extremity with inflammation (principal); I83.11 Varicose veins of right lower extremity with inflammation; R74.01 Elevation of levels of liver transaminase levels; R74.8 Abnormal levels of other serum enzymes; R73.09 Other abnormal glucose; M79.605 Pain in left leg; Z95.828 Presence of other vascular implants and grafts
CPT/HCPCS: 80053; 82728; 83036; 83690; 83993; 85610; 86015; 86038; 86039; 86381; 86704; 86706; 86709; 86803; 87340; 87389; 87507

== ENCOUNTER 2025-03-25 09:44 | Outpatient (AMB) | payer BC, OTHER, SELFPAY ==
--- NOTE | 2025-03-25 09:47 | A.OFFVIS_ITS ---
Intake Visit Reasons: 2w follow up s/p R Venaseal 03/12/25 Intake Note: Patient presents for 2 week follow up. Patient states she had mild discomfort for about three days after the procedure. No other complaints. Accompanied by: Self / Same As Patient Allergies No Known Allergies Allergy (Verified 03/25/25 09:49) [facility] 2w follow up s/p R Venaseal 03/12/25: Details: The patient is a 49-year-old female presenting with a follow-up for right lower extremity Cyanoacralate ablation. The patient underwent a procedure on 03/12/2025 and reports improvement in the right leg. She notes that there is improvement of her right leg. She is now concerned about her left leg in particular varicosities. Similarly they have been a source of pain and discomfort for her. She now presents for follow-up. The patient has a history of dermatitis and psoriasis, which are contributing to the dry skin observed on her hand. She has been advised to apply cream to manage the dermatitis. [facility] Medical History Abdominal pain Diarrhea Chest pain Elevated alkaline phosphatase level Hypothyroid Diabetes type 2, controlled Surgical History History of esophagogastroduodenoscopy (EGD) History of colposcopy Tubal ligation status Social History Household Members: Spouse Alcohol intake: never Patient Tobacco Use Status: Never used Tobacco Review of Systems Const Reports as per HPI ENT Reports no additional complaints Card Denies chest pain, Denies chest pain at rest and Denies chest pain with activity Resp Denies chest congestion and Denies cough GI Reports no additional complaints Musc Details: pain over varicosities, aching of lower extremities, swelling, cramping, heaviness and tiredness, itching Denies abnormal gait Skin/Breast Reports pruritus and Denies wounds Neuro Reports no additional complaints and Denies abnormal gait Psych Denies no additional complaints Physical Exam Const General: cooperative, healthy appearing and comfortable Orientation/consciousness: oriented to person, oriented to place and oriented to time Neck Carotids: no bruits Chest Chest palpation & inspection: normal inspection of the chest and normal palpation of entire chest wall Resp Effort & Inspection: normal respiratory effort and able to speak in complete sentences Cardio Rate: regular rate Heart sounds: S1 normal heart sound present and S2 normal heart sound present Peripheral pulses: Peripheral pulses 2+ throughout GI Inspection: Yes normal to inspection Skin Other: +2 edema, large rope-like varicosities greater than 4 mm CEAP Classification C4 - skin color changes Ep - Etiology Primary As - superficial veins P - reflux General skin exam: dry skin Neuro General: oriented to person, oriented to place and oriented to time Extrem Right lower extremity: full ROM, normal capillary refill and edema Left lower extremity: full ROM, normal capillary refill and edema Psych Mental Status: mental status grossly normal Results Reviewed Results Reviewed: Brief summary of venous insufficiency testing is as follows: right great saphenous vein: Ablated right small saphenous vein: negative right accessory vein: none present left great saphenous vein: Positive left small saphenous vein: negative left accessory vein: none present Please note there is no evidence of any venous aneurysms or significant tortuosity Assessment & Plan Assessment & Plan (1) Varicose veins of right lower extremity with inflammation: Comment: 03/12/2025 - right great saphenous vein Cyanoacralate ablation Code(s): I83.11 - Varicose veins of right lower extremity with inflammation Category: Medical Plan: Doing well will treat left leg (2) Varicose veins of left lower extremity with inflammation: Code(s): I83.12 - Varicose veins of left lower extremity with inflammation Category: Medical Plan: This patient has varicose veins with inflammation. They continue to be a source of discomfort for the patient. The patient has tried conservative treatment with compression, leg elevation and exercise program for over 3 months time. They have been compliant with all treatment. This has provided minimal relief for the patient. I do not anticipate this course of treatment will alter the underlying etiology. The patient has been scheduled for lower extremity venous treatment inclusive of --- left great saphenous vein Cyanoacralate ablation. Risks, benefits, and complications of this procedure has been discussed in detail with the patient including but not limited to bleeding, infection, and the development of a DVT. The patient has demonstrated a clear understanding and has consented. We will schedule the patient as soon as possible. Thank you for allowing us to participate in this patient's care. If there are any questions or concerns please do not hesitate to contact us. Coding Level of Care Code Est Pt Level 4 (95313) Diagnoses Varicose veins of right lower extremity with inflammation I83.11 Varicose veins of left lower extremity with inflammation I83.12
== END 2025-03-25 10:12 | disposition home or self-care (01) ==
LOC: HO.HVS 09:45
PROVIDERS: PCP Pediatrics; Visit Provider Surgery Vascular Surgery
DX: I83.11 Varicose veins of right lower extremity with inflammation (principal); I83.12 Varicose veins of left lower extremity with inflammation
CPT/HCPCS: 99214

== ENCOUNTER 2025-04-06 13:39 | Outpatient (AMB) | payer BC, OTHER, SELFPAY ==
[2025-04-06 13:44] VITALS: BP 122/68; PULSE 92; BMI 38.5
--- NOTE | 2025-04-06 13:44 | MHC.OFFVIS ---
Vital Signs 04/06/25 13:44 Height 5 ft 8 in Weight 253 lb 8.505 oz BMI 38.5 BP 122/68 Blood Pressure Location Lt brachial Position Sitting Pulse 92 Pulse Source Monitor Intake Visit Reasons: [employer]/Chest Pain/Karon Sarpey Allergies No Known Allergies Allergy (Verified 03/25/25 09:49) Medication List - Last Reconciled 04/06/25 by Familia Ramsay MD albuterol sulfate mg inhalation Q4H PRN bisacodyl (Dulcolax (bisacodyl)) 15 mg (3 x 5 mg) PO ONCE 1 day blood sugar diagnostic (FreeStyle Lite Strips) As directed blood-glucose meter (FreeStyle [place] Lite kit) As directed cholecalciferol (vitamin D3) 50 mcg PO BID dicyclomine 20 mg PO TID famotidine 20 mg PO DAILY PRN levothyroxine 100 mcg PO DAILY polyethylene glycol 3350 (Miralax) 238 grams PO ONCE 1 day semaglutide (Ozempic) 1 mg subcut QWEEK HPI Comments Details: The patient is a 49-year-old female presenting with intermittent chest pain. The chest pain is sharp, short-lasting, and occurs primarily at rest rather than during physical exertion. The pain is not associated with physical activities such as walking or climbing stairs. No other associated symptoms like shortness of breath. No prior cardiac history. The patient has a history of diabetes mellitus, managed with Ozempic. She denies smoking or drug use. [facility] Medical History Abdominal pain Diarrhea Chest pain Elevated alkaline phosphatase level Hypothyroid Diabetes type 2, controlled Surgical History History of esophagogastroduodenoscopy (EGD) History of colposcopy Tubal ligation status Family History (Updated 04/06/25 @ 13:53 by Vreonica Beckett) Mother History of open heart surgery Father Heart attack Social History Household Members: Spouse Alcohol intake: never Patient Tobacco Use Status: Never used Tobacco Review of Systems Const Denies weakness ENT Denies dizziness Card Reports chest pain, Denies chest pain with activity, Denies syncope, Denies rapid heart rate, Denies pedal edema, Denies edema, Denies leg edema, Denies lightheadedness, Reports palpitations, Reports dyspnea, Denies dyspnea on exertion and Denies orthopnea Resp Denies cough, Reports dyspnea and Denies dyspnea on exertion GI Denies hematochezia and Denies change in stool character Musc Denies abnormal gait, Denies muscle cramps, Denies muscle weakness, Denies numbness, Denies radiating pain into limb and Denies tingling Neuro Denies abnormal gait, Denies dizziness, Denies syncope, Denies numbness, Denies tingling and Denies weakness Endo Reports palpitations Physical Exam Vital Signs: Last Vital Signs Pulse 92 04/06/25 13:44 BP 122/68 04/06/25 13:44 BMI result Body Mass Index 38.5 Const General: comfortable and no acute distress Orientation/consciousness: patient oriented x3 HEENT Other: Unremarkable Head: Yes normal to inspection Neck Neck: Yes normal visual inspection Chest Chest palpation & inspection: normal inspection of the chest Resp Auscultation: clear to auscultation bilaterally Cardio Palpation: normal PMI Heart sounds: S1 normal heart sound present, S2 normal heart sound present, no gallops, no murmurs and no rubs GI Palpation (GI): Soft to palpation Back/Spine/Pelvis Other: unremarkable Skin General skin exam: no rashes or lesions noted Neuro General: patient oriented x3 Extrem General: Yes normal to inspection Psych Mental Status: mental status grossly normal Office Procedures EKG Details: EKG with underlying sinus rhythm at 92/Min; no ischemic changes; [place]. [address]-Cnyrwcvqsnlllella, Complete Assessment & Plan Assessment & Plan (1) Chest pain: Code(s): R07.9 - Chest pain, unspecified Category: Medical Qualifiers: Chest pain type: unspecified Qualified Code(s): R07.9 - Chest pain, unspecified Plan Atypical chest pain, mostly present at rest and improving with exertion. Hence suspect noncardiac etiology. Do not recommend any further workup at this time. If indeed the nature of the pain becomes exertional, then we will need evaluation. We discussed about this today. May proceed with GI workup as planned. Low cardiac risk. Discussion Notes I discussed with the patient that her chest pain is unlikely to be cardiac in origin, given its occurrence at rest rather than during exertion. We talked about the possibility of musculoskeletal or gastroesophageal reflux disease as potential causes. I advised her to monitor her symptoms and return if they occur during physical exertion. Patient was informed and verbally consented to the use of an ambient scribe for clinic note documentation during this visit. Patient Instructions: - Monitor your symptoms and seek medical attention if chest pain occurs during physical activity. - Follow up regularly with your healthcare provider. Coding Level of Care Code New Pt Level 3 (17765) Diagnoses Chest pain, unspecified type R07.9 Chest pain type: unspecified CPT Codes EKG - CPT: 96129-Wznwrxupvyxunhqge, Complete ([id number])
--- OUTSIDE RECORDS SUMMARY | 2025-04-06 14:50 | XMS_ITS | Clinical Summary ---
Author Organization [facility] ity Address [address] [place] [address] Care Team Providers Care Cleat Layer Name Role Phone Lisa Galvan MD Primary Care Provider [phone] Social History Tobacco Use Types Packs/Day Years [...] Smear 1997 Colorectal Cancer Screening: Colonoscopy 08/15/2022 HIV Screening 08/15/2022 Hepatitis C Screening 08/15/2022 Social Influencers of Health Screening 08/15/2022 COVID-19 Vaccine ( - 2023-2 5 season) 2024 Depression Screening 09/16/2024 Influenza Vaccine (#1) 2025 HIB Vaccines Aged [...] age to complete this topic Care Teams Cleat Layer Relationship Specialty Start Date End Date Lisa Galvan MD [address] [place] [phone] PCP - General 03/16/21
--- OUTSIDE RECORDS SUMMARY | 2025-04-06 14:50 | XMS_ITS | Encounter Summary ---
Author Organization [employer] Address [address] [facility] 7 [place] [address] Care Team Providers Care Financial Center Manager Name Role Phone Lisa Galvan MD Primary Care Provider [phone] Reason for Visit * Reason Onset Date Comments Med Refill 10/08/2023 Encounter Details Date Type Department Care Team ([facility] Contact Info) Description 10/08/2023 Telephone [facility] MEDICINE [address] [place] [address] Lisa Galvan MD [address] [place] [phone] Med Refill Social History Tobacco Use Types [...] 0.083% nebulizer solution To be sent to: [facility]/pharmacy #[id number] - [place] - [address] [facility] [address], [place] [address] documented in this encounter Plan of Treatment Not on file documented as of this encounter Visit Diagnoses Not on filedocumented in this encounter Care Teams Financial Center Manager Relationship Specialty Start Date End Date Lisa Galvan MD [address] [place] [phone] PCP - General Family Medicine 08/01/12 documented as of this encounter
== END 2025-04-06 14:06 | disposition home or self-care (01) ==
LOC: HO.HCS 13:39
PROVIDERS: PCP Pediatrics; Visit Provider Internal Medicine
DX: R07.9 Chest pain, unspecified (principal)
CPT/HCPCS: 93010; 99203

== ENCOUNTER → 2025-04-06 13:39 | Outpatient (BNVA) | payer BC, OTHER, SELFPAY | PROVIDERS: PCP Pediatrics; Visit Provider Internal Medicine | DX: R07.9 Chest pain, unspecified (principal) | CPT/HCPCS: 93005 ==

== ENCOUNTER 2025-04-09 08:17 | Outpatient (AMB) | payer BC, OTHER, SELFPAY ==
--- OUTSIDE RECORDS SUMMARY | 2025-04-09 08:23 | XMS_ITS | Clinical Summary ---
Author Organization [facility] ity Address [address] [place] [address] Care Team Providers Care Drug Safety Scientist Name Role Phone Lisa Galvan MD Primary Care Provider [phone] Social History Tobacco Use Types Packs/Day Years [...] age to complete this topic Care Teams Drug Safety Scientist Relationship Specialty Start Date End Date Lisa Galvan MD [address] [place] [phone] PCP - General 03/16/21
--- OUTSIDE RECORDS SUMMARY | 2025-04-09 08:23 | XMS_ITS | Encounter Summary ---
Author Organization [employer] Address [address] [facility] 7 [place] [address] Care Team Providers Care Security Director Name Role Phone Lisa Galvan MD Primary Care Provider [phone] Reason for Visit * Reason Onset Date Comments Med Refill 10/08/2023 Encounter Details Date Type Department Care Team ([facility] Contact Info) Description 10/08/2023 Telephone [facility] MEDICINE [address] [place] [address] Lisa Galvan MD [address] [place] [phone] Med Refill Social History Tobacco Use Types [...] 0.083% nebulizer solution To be sent to: [facility]/pharmacy #[id number] - [place] - [address] [facility] [address], [place] [address] documented in this encounter Plan of Treatment Not on file documented as of this encounter Visit Diagnoses Not on filedocumented in this encounter Care Teams Security Director Relationship Specialty Start Date End Date Lisa Galvan MD [address] [place] [phone] PCP - General Family Medicine 08/01/12 documented as of this encounter
--- OUTSIDE RECORDS SUMMARY | 2025-04-09 08:23 | XMS_ITS | Patient Health Record ---
Author Organization [facility] Address [address] [place] [phone] Care Team Providers Care Finance Lecturer Name Role Phone Mandy PATTERSON, Lisa Primary Care Provider Vu Sparks [...] Problem Status W/U Status Risk Notes Problem 320237043 Esophageal reflux (530.81) Active confirmed Problem 55087269 Irritable bowel syndrome (564.1) Active confirmed Problem Elevated liver enzymes level (858173498) Elevated liver function tests (790.6) Active confirmed Problem Right upper quadrant pain (789.01) Active confirmed Plan Of Treatment No Information Insurance Providers Payer Name Payer Address Payer Phone Subscriber Number Group Number Insured Name Patient Relationship to Insured Coverage Start Date Coverage End Date [facility] [address] [place] [address] [id number] JAYDEN CARDONA Self - patient is the insured Medical (General) History Medical History History ICD Code egd 8-6-10 colonoscopy 12-16-2009 gastritis anxiety asthma Hypothyroid Denies KS,DM,CVA,Lung disease,renal dise ase frequent kidney infections Surgical History Surgery Date(Month/Year) tubal ligation
--- NOTE | 2025-04-09 08:59 | MHC.OFFVIS ---
Intake Visit Reasons: Left GSV Venaseal Accompanied by: Self / Same As Patient Allergies No Known Allergies Allergy (Verified 04/09/25 09:00) [facility] Medical History Abdominal pain Diarrhea Chest pain Elevated alkaline phosphatase level Hypothyroid Diabetes type 2, controlled Surgical History History of esophagogastroduodenoscopy (EGD) History of colposcopy Tubal ligation status Family History Mother History of open heart surgery Father Heart attack Social History (Reviewed 04/09/25 @ :00 by Tyesha Weston) Household Members: Spouse Alcohol intake: never Patient Tobacco Use Status: Never used Tobacco Office Procedures Vascular Office Procedure Details Details: Diagnosis: Left Leg varicose veins with inflammation Procedure: Endovenous Ablation of the left Great Saphenous Vein with VenaSeal Closure System Anesthesia: Local infiltration 5 cc, Tire Retreader: none Estimated Blood Loss: min Specimen: none Duplex ultrasound was used to map out the insufficient saphenous vein, and access was determined and marked on the overlying skin. The depth and diameter of the vein(s) to be treated was documented. The patient was placed supine on the procedure table and the leg was prepped and draped using sterile technique. Ultasound guidance was again used to localize the access site. 1% lidocaine was injected as a local anesthetic in the subcutaneous tissues at the target location in the GSV in the lower leg. Using ultrasound guidance, access was gained at this location with the 19 gauge thin walled access needle and followed by introduction of a short guidewire, location confirmed with ultrasound. A small, 3 mm incision was made at the access site to allow for introduction and placement of the 7 Fr x7cm introducer/dilator. The dilator and guidewire were removed. The 0.035 guidewire from the VenaSeal kit was then introduced and positioned at the saphenofemoral junction using ultrasound guidance. The 80 cm 7 Fr introducer sheath/dilator was positioned 5cm from the saphenofemoral junction. The guidewire and dilator were removed, and the remaining sheath was flushed with sterile saline, with the syringe remaining in place prior to the next steps. The cyanoacrylate adhesive was precisely primed into the 5 F delivery catheter and this catheter/syringe combination was attached within the dispenser gun. This assembly was introduced through the 7F sheath and positioned 5 cm caudal of the saphenofemoral junction under ultrasound guidance. The steps from the IFU were followed for dispensing amounts, locations and compression times, 2 aliquots proximally with 3 minutes of compression, and 1 aliquot every 3 cm distally with 30 sec of compression along the course of the vessel. Following the last injection and compression sequence, the catheter and introducer sheath were pulled out from the access site. Hemostasis was achieved with manual compression and an adhesive bandage was applied to the incision. Ultrasound confirmed complete coaptation and closure of the treated segments of the GSV, and the absence of any DVT at the saphenofemoral junction. Treatment time was approximately 5 minutes and the vein length treated was 32 cm. The drapes were removed and the patient cleaned and prepared for discharge. Post op ultrasound check is scheduled for 48-72 hours and the patient was given written post-op instructions. 19492 - Endoven Ther Chem Adhes 1st All charges added?: Procedure code (CPT) selection complete Assessment & Plan Assessment & Plan (1) Varicose veins of left lower extremity with inflammation: Comment: 04/09/2025 - left great saphenous vein Cyanoacralate ablation Code(s): I83.12 - Varicose veins of left lower extremity with inflammation Category: Medical Plan: See op note Coding Level of Care Code Procedure Only Diagnoses Varicose veins of left lower extremity with inflammation I83.12 CPT Codes Details - Vascular 3: 65316 - Endoven Ther Chem Adhes 1st ([id number])
== END 2025-04-09 10:09 | disposition home or self-care (01) ==
LOC: HO.HVS 08:17
PROVIDERS: PCP Pediatrics; Visit Provider Surgery Vascular Surgery
DX: I83.12 Varicose veins of left lower extremity with inflammation (principal)
CPT/HCPCS: 36482

== ENCOUNTER → 2025-04-09 08:17 | Outpatient (BNVA) | payer BC, OTHER, SELFPAY | PROVIDERS: PCP Pediatrics; Visit Provider Surgery Vascular Surgery | DX: I83.12 Varicose veins of left lower extremity with inflammation (principal); R10.9 Unspecified abdominal pain; R19.7 Diarrhea, unspecified; R07.9 Chest pain, unspecified; E03.9 Hypothyroidism, unspecified; E11.9 Type 2 diabetes mellitus without complications | CPT/HCPCS: 36482; J2003 ==

== ENCOUNTER 2025-04-15 05:42 | Day surgery (SDC) | payer BC, OTHER, SELFPAY ==
[2025-04-13 14:35] VITALS: BMI 38.5
--- NOTE | 2025-04-14 09:18 | HO.ANESPROP2 ---
HPI - Anesthesia Eval Consult details Narrative: 49yo F for Upper Endoscopy and Colonoscopy Cardiac optimized. Eval'd by [facility] Cardiology for atypical CP (pain with rest and improved with exertion). No further work up/cardiac f/u needed. Anesthesia Pre-Procedure Meds Is the patient on any of the following meds?: GLP1/DPP4 PMFSH Active Problems Active Problems: All Active Problems Varicose veins of left lower extremity with inflammation (Acute) Varicose veins of right lower extremity with inflammation (Acute) Abdominal pain (Acute) Diarrhea (Acute) Chest pain (Acute) Elevated alkaline phosphatase level (Acute) Varicose veins of both lower extremities with inflammation (Acute) Acid reflux (Acute) Change in bowel function (Acute) Injury of meniscus of right knee (Acute) Past Medical History Medical History Abdominal pain Diarrhea Chest pain Elevated alkaline phosphatase level Hypothyroid Diabetes type 2, controlled Family History Family History Mother History of open heart surgery Father Heart attack Surgical History Surgical History History of esophagogastroduodenoscopy (EGD) History of colposcopy Tubal ligation status Social History Social History Household Members: Spouse Alcohol intake: never Patient Tobacco Use Status: Never used Tobacco Meds Allergies Allergy/AdvReac Type Severity Reaction Status Date / Time No Known Allergies Allergy Verified 04/09/25 09:00 Home Medications ?Medication ?Instructions ?Recorded ?Confirmed ?Last Taken ?Type albuterol sulfate 2.5 mg/3 mL mg inhalation Q4H PRN wheezing 11/20/21 04/06/25 Unknown History (0.083 %) solution for nebulization blood sugar diagnostic (FreeStyle #10 ea 11/20/21 04/06/25 Unknown History Lite Strips) blood-glucose meter (FreeStyle #1 ea 11/20/21 04/06/25 Unknown History Bowlus Lite kit) cholecalciferol (vitamin D3) 50 50 mcg PO BID 11/20/21 04/06/25 Unknown History mcg (2,000 unit) tablet dicyclomine 20 mg tablet 20 mg PO TID 11/20/21 04/06/25 Unknown History levothyroxine 100 mcg tablet 100 mcg PO DAILY 11/20/21 04/06/25 Unknown History Exam Height,Weight and Vital Signs: Height 5 ft 8 in Weight 115 kg Pertinent Lab Results Pertinent Lab Results: Laboratory Tests 01/12/25 03/25/25 04:39 08:49 WBC 9.7 Hgb 13.6 Hct 42.0 Plt Count 339 Sodium 138 Potassium 4.1 Chloride 106 Carbon Dioxide 27 BUN 8 L Creatinine 0.77 Narrative Narrative: EKG 03/2025 Vent. Rate : 84 BPM Atrial Rate : 84 BPM P-R Int : 130 ms QRS Dur : 88 ms QT Int : 386 ms P-R-T Axes : 62 41 54 degrees QTcB Int : 456 ms Normal sinus rhythm Normal ECG No previous ECGs available Assessment and Plan Assessment Anesthesia Assessment: Chart Reviewed
[2025-04-15 07:03] VITALS: BP 111/69; PULSE 95; RESP 16; TEMP 36.1; O2SAT 97
[2025-04-15] MEDS: Lactated Ringers 1,000 ML 100 ML IVCONT (07:04)
[2025-04-15 07:05] LABS: Glucose, Whole Blood 142 mg/dL (60-115)
--- NOTE | 2025-04-15 07:39 | HO.ANESPROP2 ---
[facility] Active Problems Active Problems: All Active Problems (Updated 04/09/25 @ 10:57 by Pedro Mathews MD) Varicose veins of left lower extremity with inflammation (Acute) Varicose veins of right lower extremity with inflammation (Acute) Abdominal pain (Acute) Diarrhea (Acute) Chest pain (Acute) Elevated alkaline phosphatase level (Acute) Varicose veins of both lower extremities with inflammation (Acute) Acid reflux (Acute) Change in bowel function (Acute) Injury of meniscus of right knee (Acute) Past Medical History Medical History Abdominal pain Diarrhea Chest pain Elevated alkaline phosphatase level Hypothyroid Diabetes type 2, controlled Functional capacity: independent ambulation Patient : No Family History Family History Mother History of open heart surgery Father Heart attack Family history of problems with anesthesia: No Surgical History Surgical History History of esophagogastroduodenoscopy (EGD) History of colposcopy Tubal ligation status History of Problems with Anesthesia: No Social History Social History Household Members: Spouse Alcohol intake: never Patient Tobacco Use Status: Never used Tobacco Use of substances other than those prescribed or required for medical reasons: No Advance Directives: No Advance Directives Information Provided: Yes Meds Allergies Allergy/AdvReac Type Severity Reaction Status Date / Time No Known Allergies Allergy Verified 04/09/25 09:00 Active Medications: Current Medications Lactated Ringer's (Lr) 1,000 mls @ 100 mls/hr IVCONT .Q10H AJAY Last Admin: 04/15/25 07:04 Dose: 100 mls/hr Home Medications ?Medication ?Instructions ?Recorded ?Confirmed ?Last Taken ?Type albuterol sulfate 2.5 mg/3 mL mg inhalation Q4H PRN wheezing 11/20/21 04/06/25 Unknown History (0.083 %) solution for nebulization blood sugar diagnostic (FreeStyle #10 ea 11/20/21 04/06/25 Unknown History Lite Strips) blood-glucose meter (FreeStyle #1 ea 11/20/21 04/06/25 Unknown History Babbitt Lite kit) cholecalciferol (vitamin D3) 50 50 mcg PO BID 11/20/21 04/06/25 Unknown History mcg (2,000 unit) tablet dicyclomine 20 mg tablet 20 mg PO TID 11/20/21 04/06/25 Unknown History levothyroxine 100 mcg tablet 100 mcg PO DAILY 11/20/21 04/06/25 Unknown History semaglutide 1 mg/dose (4 mg/3 mL) 1 mg subcut QWEEK 01/01/25 04/06/25 Unknown History subcutaneous pen injector (Ozempic) Exam Height,Weight and Vital Signs: Height 5 ft 8 in Weight 115 kg Last Vital Signs Temp 97 F 04/15/25 07:03 Pulse 95 04/15/25 07:03 Resp 16 04/15/25 07:03 BP 111/69 04/15/25 07:03 Pulse Ox 97 04/15/25 07:03 O2 Del Method Room Air 04/15/25 07:03 Pertinent Lab Results Pertinent Lab Results: Laboratory Tests 04/15/25 07:01 POC Glucose 142 H Airway Mallampati Class: III TM Dist: >3cm Neck ROM: Full Heart: RRR Lungs: CTA Assessment and Plan Assessment Anesthesia Assessment: Anesthesia Plan Discussed and Chart Reviewed Final Anesthetic Review Family History of Problems with Anesthesia: No History of Problems with Anesthesia: No ASA Class: II, III and IV Final Preanesthetic Review: Meds/Allgs Chart Reviewed, Consent Obtained/Reviewed and Anes Risks/Benef Reviewed Patient Risk: Low Procedure Risk: Low Anesthetic Plan Anesthetic Plan: MAC: Disposition: Standard PACU
--- NOTE | 2025-04-15 07:39 | MHC.SHP ---
Pre-Procedural Eval Section A - 24 Hr Update-Section A only Date of Service: 04/15/25 Section B - Complete if H&P > 30 days Chief Complaint: GERD, chronic diarrhea Details of Present Illness: Abdominal pain Diarrhea Chest pain Elevated alkaline phosphatase level Hypothyroid Diabetes type 2, controlled Surgical History History of esophagogastroduodenoscopy (EGD) History of colposcopy Tubal ligation status Present Medications: see Short Stay Collaborative assessment Allergies: Allergies Allergy/AdvReac Type Severity Reaction Status Date / Time No Known Allergies Allergy Verified 04/09/25 09:00 Review of Systems Review of Systems Comment: 10 point ROS negative Exam Exam Comment: Gen appear: No acute distress HEENT: no icterus Chest: No overt resp distress Abd: soft, nontender, nondistended Psych: Stable affect, answering questions appropriately Neuro: A/Ox3 noted to move all extremities spontaneously Ext: no peripheral edema Plan Diagnosis/Plan: Unchanged I have reviewed the history and physical and performed a pertinent physical examination on my patient. No changes have occurred unless specified. Time Spent With Patient Time: Total time managing care of this patient today ____ minutes.
[2025-04-15 08:24] VITALS: BP 112/69; PULSE 80; RESP 16; TEMP 36.1; O2SAT 100
--- NOTE | 2025-04-15 08:35 | P.OPN-COLO_ITS ---
Colonoscopy Operative Note Operative Note Date of Service: 04/15/25 Narrative: Procedure: Upper endoscopy and colonoscopy Indication: GERD, chronic diarrhea, family history of colon cancer Endoscopist: Ana María Alcantara MD Anesthesia Provider: Dr Daphne Clark Anesthesia type: MAC Instrument: [id number]-[id number] and [id number]-[id number] EGD Procedure:?? The procedure, indications, preparation and potential complications were reviewed with the patient, who indicated understanding and gave written informed consent to proceed. The endoscope was introduced through the mouth, and advanced to the 2nd part of the duodenum. The mucosa was carefully examined on slow withdrawal of the endoscope. The patient tolerated the procedure well. There were no immediate complications.? EGD Findings:? * Esophagus:? Normal esophageal mucosa was noted. The Z-line was at 40 cm. Cold forceps biopsies were taken from middle and lower esophagus to rule out eosinophilic esophagitis. * Stomach:? Normal gastric mucosa. Retroflexion was performed in the cardia. Random cold forceps biopsies were taken from the stomach to r/o H Pylori. * Duodenum:? Mild scalloping and blunting of villi was noted pastora in second portion of duodenum. Cold forceps biopsies were taken from the duodenal bulb and 2nd portion of the duodenum to rule out celiac sprue. Colonoscopy Procedure:? The patient was then turned for the colonoscopy. A digital rectal exam was performed which was normal.? A distal attachment cap was affixed to the tip of the scope and the colonoscope was then inserted through the anus and advanced through the colon and advanced to the cecum at 80 cm and terminal ileum.? Appendiceal orifice and ileocecal valve were identified. Mucosa was carefully examined under high definition white light as the instrument was slowly withdrawn in a retrograde panoramic fashion. Retroflexion was performed in ascending colon and rectum. The procedure was not difficult. The quality of the prep was BBPS: 2+3+2 = adequate Withdrawal time 11 minutes Limitations: No limitations Findings: Mucosa: Erythema and ulceration noted on ileocecal valve otherwise colon and terminal ileum (intubated at least 15 cm) mucosa was normal. Cold forceps biopsies were taken from IC Valve, right and left side of the colon. Protruding lesions: * 1 sessile polyp of size 5 mm in sigmoid colon. Cold snare polypectomy was performed. The polyp was completely removed and retrieved. * Medium internal hemorrhoids without stigmata of recent bleeding. Impression: 1. Normal esophagus (biopsy) 2. Normal stomach (biopsy) 3. Duodenitis (biopsy) 4. Abnormal ICV mucosa (biopsy) 5. One polyp removed 6. Internal hemorrhoids Recommendations:?? * Follow-up path results * Avoid NSAIDs * H Pylori treatment if biopsies + * Repeat colonoscopy for CRC screening in 5 years due to family history if no chronic inflammation noted on histology.
[2025-04-15 08:48] VITALS: BP 114/72; PULSE 78; RESP 18; TEMP 36.1; O2SAT 98
--- NOTE | 2025-04-15 11:17 | HO.POSTANES ---
Post Anesthesia Evaluation Post Anesthesia Evaluation Date of Service: 04/15/25 Vital Signs: Vital Signs Temp Pulse Resp BP Pulse Ox O2 Del Method O2 Flow Rate 04/15/25 08:48 97 F 78 18 114/72 98 Room Air 04/15/25 08:24 97 F 80 16 112/69 100 Simple Mask 6 04/15/25 07:03 97 F 95 16 111/69 97 Room Air Anesthesia: Monitored Pain Control: Satisfactory Nausea/Vomiting: None Hydration: Adequate Anesthesia-Related Issues: No Anes. Related Issues
== END 2025-04-15 09:05 | disposition home or self-care (01) ==
PROVIDERS: PCP Pediatrics; Visit Provider Internal Medicine
PROC: (CPT 45385; principal; 2025-04-15 07:30)
DX: Z12.11 Encounter for screening for malignant neoplasm of colon (principal); Z80.0 Family history of malignant neoplasm of digestive organs; K52.9 Noninfective gastroenteritis and colitis, unspecified; K63.89 Other specified diseases of intestine; K63.5 Polyp of colon; K64.8 Other hemorrhoids; K21.9 Gastro-esophageal reflux disease without esophagitis; R10.13 Epigastric pain; K29.80 Duodenitis without bleeding; E11.9 Type 2 diabetes mellitus without complications; E03.9 Hypothyroidism, unspecified; R07.9 Chest pain, unspecified; R74.8 Abnormal levels of other serum enzymes; Z79.1 Long term (current) use of non-steroidal anti-inflammatories (NSAID); Z79.85 Long-term (current) use of injectable non-insulin antidiabetic drugs; Z79.899 Other long term (current) drug therapy; Z87.891 Personal history of nicotine dependence
CPT/HCPCS: 45385; 45380; 43239; 82947; 88305; 88313; 88342; J2003; J2704

== ENCOUNTER → 2025-04-15 05:42 | Outpatient (BNV) | payer BC, OTHER, SELFPAY | PROVIDERS: PCP Pediatrics; Visit Provider Internal Medicine | DX: K31.89 Other diseases of stomach and duodenum (principal); K21.9 Gastro-esophageal reflux disease without esophagitis; Z12.11 Encounter for screening for malignant neoplasm of colon; K63.5 Polyp of colon; K64.8 Other hemorrhoids | CPT/HCPCS: 43239; 45385 ==

== ENCOUNTER 2025-04-27 11:01 | Outpatient (AMB) | payer BC, OTHER, SELFPAY ==
--- NOTE | 2025-04-27 11:04 | MHC.OFFVIS ---
Intake Visit Reasons: 2 week follow up Left GSV Venaseal 04/09/25 Intake Note: Patient presents for follow up venaseal. Patient states she had pain for a week but it has stopped. Accompanied by: Self / Same As Patient Allergies No Known Allergies Allergy (Verified 04/27/25 11:06) HPI HPI 2 week follow up Left GSV Venaseal 04/09/25: Details: Patient is now for follow-up status post left great saphenous vein ablation. Appears to be doing relatively well postprocedure. No significant complaints. Reports both legs feel significantly better with swelling and discomfort improved. She is now for postprocedure follow-up [facility] Medical History Abdominal pain Diarrhea Chest pain Elevated alkaline phosphatase level Hypothyroid Diabetes type 2, controlled Surgical History History of esophagogastroduodenoscopy (EGD) History of colposcopy Tubal ligation status Family History Mother History of open heart surgery Father Heart attack Social History Household Members: Spouse Alcohol intake: never Patient Tobacco Use Status: Never used Tobacco Review of Systems Const All systems reviewed & are unremarkable except as noted in HPI and below Reports no additional complaints ENT Reports Normal hearing present Card Denies chest pain, Denies chest pain at rest, Denies chest pain with activity and Denies pedal edema Resp Denies cough GI Denies abdominal pain Musc Denies abnormal gait, Denies muscle cramps and Denies radiating pain into limb Skin/Breast Denies skin ulcer and Denies wounds Neuro Reports Normal hearing present and Denies abnormal gait Psych Reports no additional complaints Physical Exam Const General: cooperative, healthy appearing and comfortable Orientation/consciousness: oriented to person, oriented to place and oriented to time HEENT Head: Yes normal to inspection Neck Neck: Yes normal visual inspection Carotids: no bruits Chest Chest palpation & inspection: normal inspection of the chest Resp Effort & Inspection: normal respiratory effort and able to speak in complete sentences Auscultation: clear to auscultation bilaterally, no crackles, no rales, no rhonchi and no wheezes Cardio Rate: regular rate Rhythm: regular rhythm Heart sounds: S1 normal heart sound present and S2 normal heart sound present Bruits: no carotid bruits Peripheral pulses: Peripheral pulses 2+ throughout GI Inspection: Yes normal to inspection Skin Wounds: no wounds Hair: normal Neuro General: oriented to person, oriented to place and oriented to time Cranial nerves: Yes CN's II-XII intact bilaterally and Yes Normal hearing present Cognition (Neuro): normal cognition Motor exam (neuro): 5/5 motor strength present throughout Extrem Other: venous exam: No significant superficial varicosities or spider telangiectasias, minimal edema General: No clubbing, No cyanosis and No edema Psych Appearance: grossly normal Mental Status: mental status grossly normal Speech and movement: Normal speech and movement present Assessment & Plan Assessment & Plan (1) Varicose veins of right lower extremity with inflammation: Comment: 03/12/2025 - right great saphenous vein Cyanoacralate ablation Code(s): I83.11 - Varicose veins of right lower extremity with inflammation Category: Medical Plan: See below (2) Varicose veins of left lower extremity with inflammation: Comment: 04/09/2025 - left great saphenous vein Cyanoacralate ablation Code(s): I83.12 - Varicose veins of left lower extremity with inflammation Category: Medical Plan: The patient has done extremely well with all venous treatments. Patient's may often experience postprocedure phlebitic episodes and I have discussed with the patient use of warm compresses and NSAIDS if tolerated for pain discomfort. In addition, I have discussed continued conservative measures including use of compression, leg elevation, and exercise. The patient was also given an information sheet regarding appropriate use of compression stockings and future purchases. Thank you for allowing us to care for your patient with venous disease. Coding Level of Care Code Est Pt Level 3 (78869) Diagnoses Varicose veins of right lower extremity with inflammation I83.11 Varicose veins of left lower extremity with inflammation I83.12
--- OUTSIDE RECORDS SUMMARY | 2025-04-27 12:09 | XMS_ITS | Encounter Summary ---
Author Organization [employer] Address [address] [facility] [place] [address] [place] [address] Care Team Providers Care Assistant Community Manager Name Role Phone Lisa Galvan MD Primary Care Provider [phone] Reason for Visit * Reason Onset Date Comments Med Refill 10/08/2023 Encounter Details Date Type Department Care Team ([facility] Contact Info) Description 10/08/2023 Telephone [facility] [address] [place] [address] Lisa Galvan MD [address] [place] [phone] Med Refill Social History Tobacco Use Types [...] 0.083% nebulizer solution To be sent to: [facility]/pharmacy #[id number] - [place] WARD - [address] [facility] [address], [place] [id number] documented in this encounter Plan of Treatment Not on file documented as of this encounter Visit Diagnoses Not on filedocumented in this encounter Care Teams Assistant Community Manager Relationship Specialty Start Date End Date Lisa Galvan MD [address] [place] [phone] PCP - General Family Medicine 08/01/12 documented as of this encounter
--- OUTSIDE RECORDS SUMMARY | 2025-04-27 12:09 | XMS_ITS | Patient Health Record ---
Author Organization [facility] Address [address] [place] [id number] Care Team Providers Care Community Education Specialist Name Role Phone Mandy PATTERSON, Lisa Primary [...] Problem Status W/U Status Risk Notes Problem 625552462 Esophageal reflux (530.81) Active confirmed Problem 25757796 Irritable bowel syndrome (564.1) Active confirmed Problem Elevated liver enzymes level (186992294) Elevated liver function tests (790.6) Active confirmed Problem Right upper quadrant pain (789.01) Active confirmed Plan Of Treatment No Information Insurance Providers Payer Name Payer Address Payer Phone Subscriber Number Group Number Insured Name Patient Relationship to Insured Coverage Start Date Coverage End Date [employer] [facility] [facility] [address] [place] [phone] [id number] JAYDEN CARDONA Self - patient is the insured Medical (General) History Medical History History ICD Code egd 8-6-10 colonoscopy 12-16-2009 gastritis anxiety asthma Hypothyroid Denies MD,DM,CVA,Lung disease,renal dise ase frequent kidney infections Surgical History Surgery Date(Month/Year) tubal ligation
--- OUTSIDE RECORDS SUMMARY | 2025-04-27 12:09 | XMS_ITS | Clinical Summary ---
Author Organization [facility] Address [address] [place] [address] Care Team Providers Care Substation Operator Automatic Name Role Phone Lisa Galvan MD Primary Care Provider [phone] Social History Tobacco Use Types Packs/Day Years [...] age to complete this topic Care Teams Substation Operator Automatic Relationship Specialty Start Date End Date Lsia Galvan MD [address] [place] [phone] PCP - General 03/16/21
== END 2025-04-27 11:27 | disposition home or self-care (01) ==
LOC: HO.HVS 11:02
PROVIDERS: PCP Pediatrics; Visit Provider Surgery Vascular Surgery
DX: I83.11 Varicose veins of right lower extremity with inflammation (principal); I83.12 Varicose veins of left lower extremity with inflammation
CPT/HCPCS: 99213